=== PATIENT | female | born 1970 | race Caucasian/White ===

== ENCOUNTER → 2020-05-19 16:26 | Outpatient (CLI) | payer OTHER, SELFPAY ==
--- NOTE | ~2020-05-19 | MM_ITS ---
EXAMINATION: MM screening markus BI w john HISTORY: Screening mammogram TECHNIQUE: Craniocaudal and mediolateral oblique 3-D tomosynthesis images were obtained and synthetic 2-D images were generated. CAD analysis was submitted and interpreted. COMPARISON: 01/07/2018 bilateral digital screening mammogram 01/17/2017 bilateral diagnostic digital mammogram 01/01/2017 bilateral digital screening mammogram BREAST PARENCHYMAL COMPOSITION: There are scattered areas of fibroglandular density. FINDINGS: There is stable fibroglandular asymmetry. There is no evidence of suspicious mass, calcific ation, or architectural distortion to suggest malignancy in either breast. There has been no suspicio us interval change. IMPRESSION: 1. No mammographic evidence of malignancy. 2. Recommend routine screening mammography in one year. BI-RADS Category 2: Benign finding(s). Reviewed, dictated and finalized at location A.
== END ==
PROVIDERS: PCP Internal Medicine; Visit Provider Obstetrics & Gynecology
DX: Z12.31 Encounter for screening mammogram for malignant neoplasm of breast (principal)
CPT/HCPCS: 77063; 77067

== ENCOUNTER 2020-09-27 14:59 | Outpatient (CLI) | payer OTHER, SELFPAY | END 2020-09-27 15:00 | disposition home or self-care (01) | PROVIDERS: Family Provider Internal Medicine; PCP Internal Medicine; Visit Provider Urology | DX: Z01.818 Encounter for other preprocedural examination (principal); N39.3 Stress incontinence (female) (male) | CPT/HCPCS: 87086; 87088 ==

== ENCOUNTER 2020-09-28 01:35 | Outpatient (CLI) | payer OTHER, SELFPAY ==
[2020-09-28 18:12] LABS: SARS-CoV-2 RNA PCR Negative
== END 2020-09-28 01:36 | disposition home or self-care (01) ==
LOC: ANHCOVIDDT 01:35
PROVIDERS: Family Provider Internal Medicine; PCP Internal Medicine; Visit Provider Urology
DX: Z01.812 Encounter for preprocedural laboratory examination (principal); Z20.822 Contact with and (suspected) exposure to COVID-19
CPT/HCPCS: C9803; U0003; U0005

== ENCOUNTER 2020-10-01 02:01 | Day surgery (SDC) | payer OTHER, SELFPAY ==
[2020-09-23 16:04] VITALS: BMI 26.6
--- NOTE | 2020-09-26 15:38 | PM.IMHP ---
H&P: HPI History of Present Illness Date/Time: 09/26/20 15:38 Chief Complaint: NENO Narrative: Taryn Bahena is a 49 year old female with NENO Review of Systems Review of Systems: All systems reviewed & are unremarkable except as noted in HPI and below PMFSH Social History Social History Smoking status: Never smoker Spiritual care concerns: No Meds Home Medications and Allergies Home Medications Medication Instructions Recorded Confirmed Type albuterol sulfate [ProAir HFA] 2 puff INHALATION QID PRN 09/23/20 09/23/20 History ascorbic acid-vitamin E-biotin 1 tablet PO DAILY 09/23/20 09/23/20 History [Hair, Skin, Nails with Biotin] ciprofloxacin HCl [Cipro] 500 mg PO HS 09/23/20 09/23/20 History loratadine [Claritin] 10 mg PO DAILY 09/23/20 09/23/20 History multivitamin,tr-ootx-ywwvdbth 1 tablet PO DAILY 09/23/20 09/23/20 History [Complete Multivitamin] Allergies Allergy/AdvReac Type Severity Reaction Status Date / Time No Known Allergies Allergy Unknown Verified 09/23/20 15:44 Exam Const: General: cooperative, healthy appearing, comfortable and no acute distress HENMT: Head: normal to inspection Eyes: General: appearance normal, both eyes and all related structures Resp: Effort & Inspection: normal respiratory effort and able to speak in complete sentences GI: Inspection: normal to inspection : External Female Exam: normal external appearance Skin: General skin exam: normal color Assessment and Plan Assessment and plan (1) NENO (stress urinary incontinence, female): Code(s): N39.3 - Stress incontinence (female) (male) Status: Acute Assessment and Plan: urethral sling
--- NOTE | 2020-09-30 14:29 | WPDANESEPPF ---
Anes - Initial Pre Proc Eval Procedure: Operation Date: 10/01/20 09:00 Proposed Procedures p Urethral Sling - Bentley Gray MD Date/Time: 09/30/20 14:29 Surgeon: Bentley Gray MD Pre Op Diagnosis: Stress Incontinence Patient Data Age: 49 Gender: F Height: 1.7 m Weight: 77.15 kg Allergies Allergy/AdvReac Type Severity Reaction Status Date / Time No Known Allergies Allergy Unknown Verified 09/23/20 15:44 Home Medications Medication Instructions Recorded Confirmed Type albuterol sulfate [ProAir HFA] 2 puff INHALATION QID PRN 09/23/20 09/23/20 History ascorbic acid-vitamin E-biotin 1 tablet PO DAILY 09/23/20 09/23/20 History [Hair, Skin, Nails with Biotin] ciprofloxacin HCl [Cipro] 500 mg PO HS 09/23/20 09/23/20 History loratadine [Claritin] 10 mg PO DAILY 09/23/20 09/23/20 History multivitamin,th-exul-plnoszjs 1 tablet PO DAILY 09/23/20 09/23/20 History [Complete Multivitamin] Patient hx anesthesia problems: none Family hx anesthesia problems: none PMFSH Past Medical History Medical History (Updated 09/30/20 @ 14:30 by Sarthak Calvillo MD) Asthma NENO (stress urinary incontinence, female) Social History Social History Smoking status: Never smoker Living arrangements: with family Spiritual care concerns: No Anes - Eval Final PreProcedure Day of Procedure 09/30/20 14:29 Patient weight: overweight Heart: regular rate and rhythm Lungs: clear to auscultation and normal air movement Airway: Mallampati scale Neurological: alert and oriented Last oral intake: >/= 8 hours ASA classification: II Emergent: no Anesthetic plan: proceed Anesthesia type and monitoring: general LMA Informed Consent: The patient's anesthetic plan and its attendant risks and benefits were discussed with the patient/family/POA. Questions were solicited and answers provided to the satisfaction of the patient/family/POA.
--- NOTE | 2020-10-01 05:00 | WPDHPUPDATE1 ---
History and Physical Update Update Date/Time: 10/01/20 05:00 History and Physical has been reviewed, including an updated exam of the patient. There are NO changes in the patient's condition. Risks, benefits, and alternatives have been discussed and questions answered. Patient agrees to proceed with procedure.
[2020-10-01] MEDS: LACTATED RINGERS 1,000 ML 30 ML IV CONT (08:05)
[2020-10-01] MEDS: ceFAZolin 2 GM/D5W 50 ML 2 GM/50 ML BAG IVPB (08:51)
[2020-10-01] MEDS: BUPIVACAINE/EPINEPHRINE 0.5% 10 ML VIAL INFILTRATE (08:59)
--- NOTE | 2020-10-01 09:19 | PM.PROC ---
Procedure Note - Detailed Date of procedure: 10/01/20 Pre-op diagnosis: Stress Incontinence Stress urinary incontinence Post-op diagnosis: same Procedure performed: Transobturator Mid-urethral sling Cystoscopy Description of procedure: Anesthesia: Mac/local This is a patient with confirmed stress urinary incontinence. She desires correction. She understands the risks of bleeding, infection, damage to the urinary tract, lack of cure of stress incontinence, recurrence of stress incontinence, postoperative voiding dysfunction including incontinence and retention, need for ancillary procedures to loosen remove the sling, postoperative voiding dysfunction including retention and overactive bladder, hip and leg pain, dyspareunia, mesh related complications including exposure and extrusion. She agrees to proceed. She understands it will not help overactive bladder symptoms if present. She was correctly identified and informed consent obtained. She is brought to the operating room. She was given appropriate anesthesia. She was placed in the dorsal lithotomy position. All pressure points were padded. She was given appropriate perioperative antibiotics and a time-out performed. A Smith catheter is placed. I marked out the thigh incisions anesthetize the skin and made those incisions. I anesthetized the anterior vaginal wall over the mid urethra. I made a 1 cm incision. I dissected out laterally taking great care not to injure the urethra or the vaginal wall. Passed the helical trocars 1st on the left and then on the right from the thigh incision towards the vaginal incision. Sling was connected to the trocars and brought out through the thigh incision. I tensioned the sling appropriately. I cut and removed the plastic sheaths. I closed the incision with 2 0 Vicryl. I then performed cystoscopy. There was no surgical artifact or abnormalities inside the bladder. The urethra was normal without surgical artifact. I cut the excess sling material. I closed the incisions with glue. She was awakened and transferred to the PACU in stable condition. Implants: Mid urethral sling Surgeon: Bentley Gray MD Drains: No Packing: No Pathology: none sent Complications: No immediate complications Condition: stable Disposition: PACU
[2020-10-01 09:22] VITALS: BP 102/61; PULSE 60; RESP 16; O2SAT 98
[2020-10-01 09:50] VITALS: BP 91/57; PULSE 55; RESP 16
[2020-10-01 10:11] VITALS: BP 110/67; PULSE 50; RESP 16
== END 2020-10-01 10:25 | disposition home or self-care (01) ==
PROVIDERS: Family Provider Internal Medicine; PCP Internal Medicine; Visit Provider Urology
PROC: (CPT 57288; principal; 2020-10-01 09:00)
DX: N39.3 Stress incontinence (female) (male) (principal); Z79.51 Long term (current) use of inhaled steroids
CPT/HCPCS: 57288; 87086; 87088; A9270; C1771; C9803; J0690; J2250; J2704; J3010; J7030; J7120; U0003; U0005

== ENCOUNTER 2021-09-16 21:03 | Emergency (ER) | payer OTHER, SELFPAY ==
--- NOTE | ~2021-09-16 | CT_ITS ---
EXAMINATION: CT abdomen pelvis w con INDICATION: Lower abdominal and pelvic pain TECHNIQUE: Computed tomographic images of the abdomen and pelvis were obtained after the administrati on of 100 cc of Omnipaque 350 intravenous contrast. The dose-length product (DLP) was 613.11 mGy-cm. Automated exposure control and iterative reconstruction technique were employed. COMPARISON: None available FINDINGS: The lung bases are clear. The heart size is normal. The liver, spleen, pancreas, gallbladde r, and adrenal glands are normal. The right kidney is unremarkable. Cysts of the left kidney measure up to 8 mm. No pathologically enlarged abdominal or pelvic lymph nodes are identified. The appendix i s normal. There is no free intraperitoneal gas or evidence of bowel obstruction. A large volume of co lonic stool is present. There is moderate lumbar spondylosis at L5-S1. IMPRESSION: 1. Constipation. Reviewed, dictated and finalized at location F. [employer] IMPRESSION: 1. Constipation.
[2021-09-16 21:06] VITALS: BP 138/87; PULSE 77; RESP 16; TEMP 36.1; O2SAT 98
[2021-09-16 22:03] LABS: Basophils Absolute Auto 0.1 K/mm3 (0.0-0.1); Basophils Percent Auto 0.9 % (0.2-1.2); Eosinophils Absolute Auto 0.2 K/mm3 (0-0.3); Hematocrit 38.5 % (37.0-47.0); Hemoglobin 12.9 g/dL (12.0-15.0); Immature Granulocyte Absolute 0.02 K/mm3 (0.00-0.031); Immature Granulocyte Percent A 0.3 % (0-0.5); Lymphocytes Absolute Auto 2.44 K/mm3 (0.9-3.2); Lymphocytes Percent Auto 31.2 % (18.3-44.2); Mean Corpuscular HGB Conc 33.5 g/dl (32-36); Mean Corpuscular Hemoglobin 32.7 pg (26-34); Mean Corpuscular Volume 97.7 fl (80-100); Monocytes Absolute Auto 0.5 K/mm3 (0.1-0.6); Monocytes Percent Auto 6.9 % (2.6-8.5); Neutrophils Absolute Auto 4.6 K/mm3 (1.3-6.7); Neutrophils Percent Auto 58.7 % (45.5-73.1); Platelet Count Result 318 k/mm3 (150-375); Red Blood Count 3.94 M/mm3 (4.2-5.4); Red Cell Distribution Width 12.3 % (11.5-14.5); White Blood Count 7.8 K/mm3 (4.5-10.0)
[2021-09-16 22:07] LABS: Add Urine Microscopic? NO; Appearance Urine Clear (Clear); Bilirubin Urine Negative (Negative); Blood Urine Negative (Negative); Color Urine Colorless (Yellow); Glucose Urine UA Negative (Negative); Ketones Urine Negative (Negative); Leukocyte Esterase Ur Negative LEU/UL (Negative); Nitrate Urine Negative (Negative); Protein Urine Negative (Negative); Urobilinogen Urine Negative mg/dL (<2.0)
[2021-09-16 22:10] LABS: Specific Grav Ur 1.003 (1.001-1.035)
--- NOTE | 2021-09-16 22:14 | ED.ABDPAIN ---
HPI - Abdominal Pain General Chief Complaint: Abdominal Pain Stated Complaint: Lower ABD Pain, Back Pain, ABD Pressure Time Seen by Provider: 09/16/21 21:51 Source: patient and RN notes reviewed Limitations: no limitations History of Present Illness HPI narrative: 50-year-old female presents to the emergency department for evaluation of lower abdominal pain, bloating and vaginal discharge. Patient denies any pain but does describe bloating. Patient states that she did feel that the abdominal bloating was worsened after eating. Patient denies any change in her bowel movements. Patient states she did have a significant bowel movement yesterday which did not significantly affect her symptoms. Patient states that the vaginal discharge as white but denies any odor, denies any vaginal bleeding. Patient did have a urethral sling done 1 year ago. Patient does have follow-up with her primary care physician on October 07. Patient did attempt to get follow-up with her [employer] but call after the office closed. Related Data Home Medications Medication Instructions Recorded Confirmed Complete Multivitamin 1 tablet PO DAILY 09/23/20 10/01/20 Hair, Skin, Nails with Biotin 1 tablet PO DAILY 09/23/20 10/01/20 albuterol sulfate [ProAir HFA] 2 puff INHALATION QID PRN 09/23/20 10/01/20 ciprofloxacin HCl [Cipro] 500 mg PO HS 09/23/20 10/01/20 loratadine [Claritin] 10 mg PO DAILY 09/23/20 10/01/20 Allergies Allergy/AdvReac Type Severity Reaction Status Date / Time No Known Allergies Allergy Unknown Verified 09/16/21 21:11 Review of Systems Review of Systems: CONSTITUTIONAL: Denies fever, chills, or sweats. EYES: Denies visual changes, redness, or discharge. ENT: Denies rhinorrhea, congestion, sore throat, or otalgia. CARDIOVASCULAR: Denies chest pain, palpitations, or edema. RESPIRATORY: Denies cough or dyspnea. GASTROINTESTINAL: lower abdominal pressure, denies any nausea vomiting or diarrhea GENITOURINARY: Denies dysuria or hematuria. SKIN: Denies rash or itching. MUSCULOSKELETAL: Denies back pain, joint pain, or myalgia. NEUROLOGIC: Denies headache, numbness, or weakness. PSYCHIATRIC: Denies anxiety or depression. [facility] Past Medical History Medical History (Updated 01/14/22 @ 23:33 by Xavier Dodge MD) Asthma NENO (stress urinary incontinence, female) Social History Social History Smoking status: Never smoker Spiritual care concerns: No Exam Narrative: APPEARANCE: Well appearing, no pain, no distress, well-nourished. HEAD: normocephalic, atraumatic. EYES: PERRLA/EOMI, conjunctivae clear. NOSE: Normal no drainage THROAT: Pharynx clear, no exudate. NECK: Supple. No adenopathy, no masses. RESPIRATORY: Airway patent, respirations nonlabored. Clear to auscultation bilaterally, no rales, rhonchi, wheezing. CARDIOVASCULAR: Regular rate and rhythm without murmurs rubs or gallops. ABDOMINAL: Soft, minimal lower abdominal tenderness, nondistended, normal bowel sounds. Normal pelvic exam. No cervical friability. Patient did have a white physiologic discharge. No foul odor MUSCULOSKELETAL: Moves all extremities. Strength/ROM intact, No edema, No calf tenderness. NEURO: Alert. Cranial nerves II through XII intact. Good gait. Good coordination SKIN: Warm, dry. Normal Color PSYCHIATRIC: Normal affect/mood. Course Course Emergency Course: Patient was updated on the results of her labs and her imaging. CT did show evidence of constipation. No other acute abnormality identified. CT scan did show evidence of constipation. Patient was educated ways to help treat constipation. Patient was also updated on reasons to return to the emergency room. All question concerns were addressed. Patient was in no distress at time of discharge from the emergency department Clinical impression with constipation. Patient was discharged to home. Patient condition was stable at time of discharge Vital Signs Vital signs: Vital Signs Tempera
[2021-09-16 22:16] LABS: Alanine Aminotransferase 28 U/L (4-35); Albumin Level 4.5 g/dL (3.5-5.1); Alkaline Phosphatase 52 U/L (38-126); Anion Gap 9 mmol/L (8-16); Aspartate Amino Transferase 28 U/L (14-36); Bilirubin,Total 0.3 mg/dL (0.2-1.3); Blood Urea Nitrogen 16 mg/dL (7-17); Calcium 9.2 mg/dL (8.4-10.2); Carbon Dioxide 26 mmol/L (22-30); Chloride 104 mmol/L (98-107); Estimated CRCL calculation 112 ml/min; Estimated Glomerular Filt Rate > 60; Glucose 110 mg/dL (65-110); Lipase 99 U/L (23-300); Potassium 4.2 mmol/L (3.4-5.0); Sodium 139 mmol/L (137-145)
[2021-09-17 00:03] VITALS: BP 114/68; PULSE 65; RESP 18; O2SAT 97
== END 2021-09-17 00:07 | disposition home or self-care (01) ==
PROVIDERS: Emergency Medicine; Emergency Provider Emergency Medicine; PCP Internal Medicine
DX: K59.00 Constipation, unspecified (principal); J45.909 Unspecified asthma, uncomplicated
CPT/HCPCS: 36415; 74177; 80053; 81003; 81025; 83690; 85025; 87070; 87491; 87591; 87808; 99284; Q9967

== ENCOUNTER → 2022-04-12 14:50 | Outpatient (CLI) | payer OTHER, SELFPAY ==
--- NOTE | ~2022-04-12 | MM_ITS ---
EXAMINATION: MM screening markus BI w john HISTORY: Screening mammogram, family history of breast cancer in her mother. TECHNIQUE: Craniocaudal and mediolateral oblique 3-D tomosynthesis images were obtained and synthetic 2-D images were generated. CAD analysis was submitted and interpreted. COMPARISON: 05/19/2020, 01/07/2018, 01/17/2017 BREAST PARENCHYMAL COMPOSITION: There are scattered areas of fibroglandular density. FINDINGS: RIGHT BREAST: There is no suspicious mass, calcification, or architectural distortion to suggest renata gnancy. There has been no significant interval change. LEFT BREAST: There is a possible mass in the posterior third of the far outer breast best appreciated 8 cm from the nipple on the craniocaudal view. IMPRESSION: 1. Possible left breast mass. 2. Additional mammographic views and possible breast ultrasound are recommended. BI-RADS Category 0: Incomplete: Needs additional imaging evaluation. Reviewed, dictated and finalized at location A. IMPRESSION: 1. Possible left breast mass. 2. Additional mammographic views and possible breast ultrasound are recommended . BI-RADS Category 0: Incomplete: Needs additional imaging evaluation.
== END ==
PROVIDERS: PCP Internal Medicine; Visit Provider Obstetrics & Gynecology
DX: Z12.31 Encounter for screening mammogram for malignant neoplasm of breast (principal); R92.8 Other abnormal and inconclusive findings on diagnostic imaging of breast
CPT/HCPCS: 77063; 77067

== ENCOUNTER → 2022-04-25 08:20 | Outpatient (CLI) | payer OTHER, SELFPAY ==
--- NOTE | ~2022-04-25 | MMUS_ITS ---
EXAMINATION: MM diagnostic markus LT w john, US breast LT limited HISTORY: Follow-up left breast asymmetry TECHNIQUE: Additional 3-D tomosynthesis images of the left breast were performed and synthetic 2-D im ages were generated. CAD analysis was submitted and interpreted. High resolution Limited left breast ultrasound was performed. COMPARISON: Comparison to multiple prior studies sequentially, with oldest reviewed study dated 09/2016. BREAST PARENCHYMAL COMPOSITION: Breast composed of scattered areas of fibroglandular density FINDINGS: MAMMOGRAPHIC FINDINGS: There are no suspicious masses, calcifications or architectural distortion in the left breast to sugg est malignancy. ULTRASOUND: Limited left breast ultrasound: At 4:00, 4 cm from the nipple there is a 7 mm intramammary lymph node . No suspicious masses to suggest malignancy. IMPRESSION: 1. No evidence for malignancy in the left breast. 2. Routine yearly screening mammogram and regular clinical breast examination are recommended. BI-RADS Category 2: Benign finding(s). Reviewed, dictated and finalized at location A. IMPRESSION: 1. No evidence for malignancy in the left breast. 2. Routine yearly screening mammogram and regular clinical breast examination a re recommended. BI-RADS Category 2: Benign finding(s).
== END ==
PROVIDERS: PCP Internal Medicine; Visit Provider Obstetrics & Gynecology
DX: N63.20 Unspecified lump in the left breast, unspecified quadrant (principal)
CPT/HCPCS: 76642; 77061; 77065; G0279

== ENCOUNTER 2022-09-22 01:38 | Day surgery (SDC) | payer OTHER, SELFPAY ==
[2022-09-13 10:37] VITALS: BMI 28.1
--- NOTE | 2022-09-13 10:45 | PC.NURSE ---
Report to the Outpatient Waiting Room, entrance under the green pavilion located off [facility], at time 1000 on date 09/22/22. Planned Procedure Time: 1200. Time changes happen often and if your time is changed the preop area will call you the afternoon before. - You and your visitor will be asked to self-screen and do not enter if you have any COVID symptoms. - Only one visitor is requested with a max of two and NO children visitors are allowed at this time. - The patient visitor may be requested to leave or wait in car when not with patient due to distancing restrictions. - A mask is REQUIRED within the hospital. Patients may have clear liquids (water, carbonated beverages, clear teas, apple juice) until 3 hours prior to surgery with a maximum of 20 ounces. - No food from midnight until time of surgery Take the following medications with a SIP of water the morning of surgery: NONE Medications to discontinue per physician: VITAMINS/SUPPLEMENTS Date to take last dose: 09/18/22 Please no make-up, nail tunisian, hairspray, perfume, deodorant, or body powder the day of surgery. No jewelry (including any body piercings) or valuables the day of surgery, leave them at home. Please take a shower or bath the night before, or the morning of, surgery with an antibacterial soap. Wear comfortable, loose fitting clothing. - Jewelry must be removed prior to entering the operating room. Rings and piercings that are not removed may be cut off. - The hospital will not accept responsibility for valuables. - Please leave all valuables, including medications, at home the day of surgery. If you are going home after surgery, a licensed driver license technician must drive you home. - NO public transportation without another adult if you receive anesthesia. - We recommend that an adult stay with you for 24 hours following discharge. - We also recommend that you do not drive, make important decision, drink alcoholic beverages, or take any drugs that were not prescribed by your health care provider for at least 24 hours after your discharge time. Follow any additional instructions given to you from your surgeon. If you or anyone in your household have experienced Covid symptoms in the past week, please notify your surgeon or the nurse liaison at the phone number below for possible testing. Telephone instructions given to PT - VERA REDMAN and asked if any additional questions and then verbalized understanding. Patient advised to call surgeon office or pre surgery nurse liaison [phone] if any additional questions.
[2022-09-22 10:15] VITALS: BP 112/74; PULSE 63; RESP 16; TEMP 37.1; O2SAT 100
--- NOTE | 2022-09-22 10:29 | P.PNAN_ITS ---
Anes - Initial Pre Proc Eval Procedure: Operation Date: 09/22/22 12:00 Proposed Procedures p Excision Subcutaneous Mass Right Lower Chest - Edwin Curtis MD Date/Time: 09/22/22 10:29 Surgeon: Edwin Curtis MD Pre Op Diagnosis: subcutaneous mass right chest Patient Data Age: 51 Gender: F Height: 1.7 m Weight: 81.9 kg Last Vital Signs Temp 37.1 C 09/22/22 10:15 Pulse 63 09/22/22 10:15 Resp 16 09/22/22 10:15 BP 112/74 09/22/22 10:15 Pulse Ox 100 09/22/22 10:15 O2 Del Method Room Air 09/22/22 10:15 Allergies Allergy/AdvReac Type Severity Reaction Status Date / Time No Known Allergies Allergy Unknown Verified 09/22/22 10:00 Home Medications Medication Instructions Recorded Confirmed Type multivitamin,li-tves-qqyuzmsk 1 tablet PO DAILY 09/23/20 09/13/22 History (Complete Multivitamin tablet) loratadine 10 mg tablet 10 mg PO DAILY 08/14/22 09/13/22 History magnesium 250 mg tablet 250 mg PO DAILY 09/13/22 09/13/22 History Patient hx anesthesia problems: none Family hx anesthesia problems: none Results Review: All pre-operative results and documents have been reviewed as part of the pre- operative evaluation. 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 Gender identity (if verbalized by the patient): Female Sexual Orientation (if Verbalized by the Patient): Straight or Heterosexual Spiritual care concerns: No Anes - Eval Final PreProcedure Day of Procedure 09/22/22 10:29 Patient weight: overweight Heart: regular rate and rhythm Lungs: clear to auscultation Airway: Mallampati scale class II Neurological: alert and oriented Last oral intake: >/= 8 hours ASA classification: II Emergent: no Anesthetic plan: proceed Anesthesia type and monitoring: general GIVS and standard monitoring Results Review: All pre-operative results and documents have been reviewed as part of the pre- operative evaluation. Informed Consent: The patient's anesthetic plan and its attendant risks and benefits were discussed with the patient/family/POA. Questions were solicited and answers provided to the satisfaction of the patient/family/POA.
--- NOTE | 2022-09-22 11:38 | WPDHPUPDATE1 ---
History and Physical Update Update Date/Time: 09/22/22 11:38 History and Physical has been reviewed, including an updated exam of the patient. There are NO changes in the patient's condition. Risks, benefits, and alternatives have been discussed and questions answered. Patient agrees to proceed with procedure.
--- NOTE | 2022-09-22 12:00 | PM.SD2 ---
Same Day Admit/Disch: HPI History of Present Illness Chief complaint: subcutaneous mass right chest Narrative: Taryn Bahena is a 51 year old female who has a subcutaneous mass at the lower aspect of the right costal margin in the anterior axillary line. It is smooth mobile and suggestive of a lipoma. It is bothersome sometimes with clothing or if she bumps up against something. She is taken to surgery now for excision. 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 Gender identity (if verbalized by the patient): Female Sexual Orientation (if Verbalized by the Patient): Straight or Heterosexual Spiritual care concerns: No Same Day Admit/Disch: Med Pre-admit Medications Home Medications Medication Instructions Recorded Confirmed Type multivitamin,qg-bvly-tftuwxyi 1 tablet PO DAILY 09/23/20 09/13/22 History (Complete Multivitamin tablet) loratadine 10 mg tablet 10 mg PO DAILY 08/14/22 09/13/22 History magnesium 250 mg tablet 250 mg PO DAILY 09/13/22 09/13/22 History tramadol 50 mg tablet 50 mg PO Q6H PRN pain #6 tabs 09/22/22 Rx Exam Const: General: comfortable, no acute distress, alert and awake HENMT: Head: normocephalic and atraumatic Mouth: Yes Normal oral and palatal mucosa present Eyes: Conjunctivae: conjunctivae normal Pupils: Equal, round and reactive pupils present EOM: EOMs intact bilaterally Neck: Neck: normal visual inspection, no lymphadenopathy and nontender Resp: Effort & Inspection: normal respiratory effort Auscultation: clear to auscultation bilaterally Cardio: Rate: regular rate Rhythm: regular rhythm Heart sounds: no gallops, no murmurs and no rubs GI: Inspection: non-distended GI Palp: Yes Soft to palpation, No Tenderness to palpation present (GI), No Hepatomegaly present and No Splenomegaly present Skin: Lesions: lesion noted (4 x 2 cm mobile smooth subcutaneous mass right costal margin lateral) Rashes: no rashes Neuro: General: no focal motor deficits and CN's II-XI intact bilaterally Cranial nerves: Yes Equal, round and reactive pupils present, Yes Bilaterally intact EOM present, Yes facial symmetry and Yes Midline tongue present Speech: normal speech Motor exam (neuro): 5/5 motor strength present throughout and Motor abnormalities not present Extrem: General: no clubbing, cyanosis or edema and edema Psych: Affect: normal affect Thought process: Normal thought process present Insight: Good insight present (Psych) DS: Summary Time Spent with Patient Time attestation: Total time spent providing and/or coordinating discharge services: DS: Admitting Diagnosis Discharge Date 09/22/2022 Admitting Diagnosis Subcutaneous mass right lateral costal margin-symptomatic, likely a lipoma. Plan to excise under anesthesia as an outpatient. Discharge Plan Discharge Patient Disposition: Home, Self-Care Discharge Instructions: No lifting over 15 lb with right arm for 1 week. May bathe or shower tomorrow. Okay to wash over incision with soap and water. May drive a car and 24 hours unless taking narcotic analgesics. Avoid strenuous exercise and activities for at least 1 week
[2022-09-22] MEDS: ceFAZolin 2 GM/D5W 50 ML 2 GM/50 ML BAG IVPB (12:06)
[2022-09-22] MEDS: BUPIVACAINE/EPINEPHRINE 0.5% 10 ML VIAL INFILTRATE (12:37)
[2022-09-22 12:41] VITALS: BP 102/65; PULSE 57; RESP 18
[2022-09-22] MEDS: LACTATED RINGERS 1,000 ML 30 ML IV CONT (12:41)
--- NOTE | 2022-09-22 12:43 | P.OP_ITS ---
Procedure Note - Detailed Date of Procedure 09/22/22 Pre-op Diagnosis subcutaneous mass right upper quadrant Post-op Diagnosis Same Procedure Performed Excision subcutaneous mass right upper quadrant abdomen Surgeon Edwin Curtis MD Clinical Nutrition Manager Camille Iverson [facility] Anesthesia MAC and Local (0.5% Marcaine with epinephrine) Indications Patient noted a subcutaneous nodule just below her costal margin in the right upper quadrant somewhat laterally. This is not been severely painful but is painful with some clothing or bumping up against something in this area. She was seen in the office and is taken now to surgery for excision of this mass which is clinically consistent with a lipoma. Findings Showed a 3 x 3 cm soft tissue mass consistent with a lipoma. Description of Procedure Patient was taken to the surgery and IV sedation was administered. The area of the subcutaneous mass had been marked on the skin preoperatively. Prep and drape was carried out. Local anesthetic was infiltrated over the area of the anticipated incision. Incision was made and dissection was carried down through the skin. Right below the skin we found the lipoma. It did have three or 4 lobules associated with it. Using blunt and sharp dissection, the lipoma was carefully dissected out from under the skin and from the remaining subcutaneous tissue. It was sent to pathology in formalin. We then made the wound hemostatic with cautery. Manohar's fascia was closed with interrupted 3-0 Vicryl suture. 4-0 Vicryl subcuticular interrupted sutures were used to loosely approximate the skin. Finally a running 4-0 Monocryl skin stitch was used to close the skin. The wound was dressed with Exofin surgical adhesive. Patient was awakened and taken to outpatient recovery in good condition. Sponge and needle counts were correct x2. Estimated Blood Loss -2 Drains No Packing No Pathology Yes (Subcutaneous mass right upper quadrant) Complications No immediate complications Condition Stable Disposition Same day [facility] Billing Surgery - Charge Forward: Surgery Billing (Excision 3 cm subcutaneous mass right upper quadrant abdomen)
[2022-09-22 13:14] VITALS: BP 95/56; PULSE 60; RESP 16
[2022-09-22 13:41] VITALS: BP 102/64; PULSE 53; RESP 16
== END 2022-09-22 13:52 | disposition home or self-care (01) ==
PROVIDERS: PCP Internal Medicine; Visit Provider Surgery
PROC: (CPT 22903; principal; 2022-09-22 12:00)
DX: D17.1 Benign lipomatous neoplasm of skin and subcutaneous tissue of trunk (principal)
CPT/HCPCS: 22903; 88304; J0690; J2250; J2704; J3010; J7120

== ENCOUNTER 2023-07-19 17:18 | Emergency (ER) | payer OTHER, SELFPAY ==
[2023-07-19] VITALS (8 sets, daily range): BP systolic 113–138; BP diastolic 66–93; PULSE 81; RESP 16; TEMP 36.5; O2SAT 98–100
--- NOTE | ~2023-07-19 | CT_ITS ---
EXAMINATION: CT abdomen pelvis wo con DATE: 07/19/2023 20:34 INDICATION: Right flank pain TECHNIQUE: Computed tomography (CT) of the abdomen and pelvis was performed without intravenous contr ast. Automated exposure control and iterative reconstruction technique were employed. The dose-length product was 659.46 mGy-cm. COMPARISON: 09/16/2021 FINDINGS: Minimal dependent atelectasis in bilateral lower lobes. Tiny calcified left lower lobe nodule consist ent with old granulomatous disease. Heart size is normal. No pericardial or pleural effusion. Focal h epatic steatosis at the ligamentum teres. Gallbladder, spleen, pancreas and bilateral adrenal glands are normal. Kidneys and ureters are normal with no urolithiasis, hydroureteronephrosis or perinephric /ureteral stranding. Moderate to large amount of stool in the proximal to mid colon. No bowel obstru ction. Normal appendix. Bladder is normal. Uterus and bilateral adnexa are unremarkable. No free intr aperitoneal gas or fluid. No pathologically enlarged abdominal or pelvic lymphadenopathy. Severe spon dylosis at L5-S1. IMPRESSION: 1. No urolithiasis or acute intra-abdominal/pelvic process. Reviewed, dictated and finalized at location A. 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
[2023-07-19 17:46] LABS: Basophils Absolute Auto 0.1 K/mm3 (0.0-0.1); Basophils Percent Auto 0.6 % (0.2-1.2); Eosinophils Absolute Auto 0.1 K/mm3 (0-0.3); Eosinophils Percent Auto 1.2 % (0-4.4); Hematocrit 39.2 % (37.0-47.0); Hemoglobin 12.8 g/dL (12.0-15.0); Immature Granulocyte Absolute 0.03 K/mm3 (0.00-0.031); Immature Granulocyte Percent A 0.3 % (0-0.5); Lymphocytes Absolute Auto 2.02 K/mm3 (0.9-3.2); Lymphocytes Percent Auto 21.7 % (18.3-44.2); Mean Corpuscular HGB Conc 32.7 g/dl (32-36); Mean Corpuscular Hemoglobin 31.1 pg (26-34); Mean Corpuscular Volume 95.4 fl (80-100); Mean Platelet Volume 8.8 fl (7.4-10.4); Monocytes Absolute Auto 0.6 K/mm3 (0.1-0.6); Monocytes Percent Auto 6.1 % (2.6-8.5); Neutrophils Absolute Auto 6.5 K/mm3 (1.3-6.7); Neutrophils Percent Auto 70.1 % (45.5-73.1); Platelet Count Result 349 k/mm3 (150-375); Red Blood Count 4.11 M/mm3 (4.2-5.4); Red Cell Distribution Width 12.7 % (11.5-14.5); White Blood Count 9.3 K/mm3 (4.5-10.0)
[2023-07-19 17:57] LABS: Alanine Aminotransferase 23 U/L (6-35); Albumin Level 4.8 g/dL (3.5-5.1); Alkaline Phosphatase 64 U/L (38-126); Anion Gap 12 mmol/L (8-16); Aspartate Amino Transferase 26 U/L (14-36); Bilirubin,Total 0.7 mg/dL (0.2-1.3); Blood Urea Nitrogen 10 mg/dL (7-17); Calcium 9.8 mg/dL (8.4-10.2); Carbon Dioxide 28 mmol/L (22-30); Chloride 98 mmol/L (98-107); Estimated CRCL calculation 80 ml/min; Estimated Glomerular Filt Rate > 60; Glucose 90 mg/dL (65-110); Potassium 4.2 mmol/L (3.4-5.0); Sodium 138 mmol/L (137-145)
[2023-07-19 18:33] LABS: Appearance Urine Turbid (Clear); Bacteria Urine None Seen /hpf; Bilirubin Urine Negative (Negative); Blood Urine 3+ (Negative); Glucose Urine UA Negative (Negative); Ketones Urine Negative (Negative); Leukocyte Esterase Ur 3+ LEU/UL (Negative); Mucus Urine Present /lpf; Need Manual Microscopic Reviewed; Nitrate Urine Negative (Negative); Protein Urine 1+ mg/dL (Negative); Specific Grav Ur 1.004 (1.001-1.035); Squamous Epithelial Cell Urine None seen /hpf (Few); Urobilinogen Urine 0.2 mg/dL (<2.0); WBC Urine >100 /hpf
[2023-07-19 18:35] LABS: Color Urine Light Red (Yellow)
[2023-07-19 18:52] LABS: Add Urine Microscopic? YES
--- NOTE | 2023-07-19 20:38 | ED.FEMALEGU ---
HPI - Female Genitourinary General Chief complaint: Urogenital-Female Stated complaint: hematuria Time Seen by Provider: 07/19/23 20:03 History of Present Illness HPI Narrative: This is a 52-year-old female, with history of frequent UTIs, who presents to the emergency department complaining dysuria, hematuria and right flank pain. The patient states her symptoms began approximately 3 days ago. She was prescribed Bactrim, although overnight developed bladder spasms and has since developed right upper quadrant dull pain, rated 5/10 without radiation. She has no other complaints at this time. Related Data Home Medications Medication Instructions Recorded Confirmed multivitamin,ul-vtyh-nwylyzky 1 tablet PO DAILY 09/23/20 10/09/22 (Complete Multivitamin tablet) loratadine 10 mg tablet 10 mg PO DAILY 08/14/22 10/09/22 magnesium 250 mg tablet 250 mg PO DAILY 09/13/22 10/09/22 alpha lipoic acid 300 mg capsule 300 mg PO DAILY 03/29/23 Allergies Allergy/AdvReac Type Severity Reaction Status Date / Time No Known Allergies Allergy Unknown Verified 03/29/23 13:25 Review of Systems Review of Systems: CONSTITUTIONAL: Denies fever, chills, or sweats. CARDIOVASCULAR: Denies chest pain, palpitations, or edema. RESPIRATORY: Denies cough or dyspnea. GASTROINTESTINAL: Right flank pain denies nausea, vomiting, or diarrhea. GENITOURINARY: Denies dysuria or hematuria. SKIN: Denies rash or itching. MUSCULOSKELETAL: Right flank pain denies joint pain, or myalgia. NEUROLOGIC: Denies headache, numbness, dizziness, or weakness. PSYCHIATRIC: Denies anxiety or depression. FOR[facility]LY [facility] Past Medical History Medical History Asthma NENO (stress urinary incontinence, female) Surgical History Surgical History History of bladder surgery sling History of excision of mass 09/22/2022 - excision subcutaneous lipoma of the right upper quadrant of abdomen History of hysteroscopy S/P dilation and curettage Amenorrhea; benign pathology Family History Family History Father Hypertension Other Breast cancer Social History Social History Smoking status: Never smoker Alcohol intake: current Drinks per week: 1 Substance use: never Substance use type: does not use Lack of Transportation: No Lack of Food: Never True Current Housing: I Have Housing Concerned About Future Housing: No Difficulty Paying Gas/Electric Bills: No Difficulty Paying for Meds: No Currently Unemployed: No Education: Master's Degree or Higher Difficulty w/ Childcare or Family Care: No Living arrangements: with family 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 HEAD: Normocephalic, atraumatic. EYES: PERRLA and EOMI. ENT: Nares clear, no rhinorrhea or epistaxis. Mucous membranes moist. Oropharynx without tonsillar hypertrophy exudate or other lesions. CHEST: Clear to auscultation. No respiratory distress. No wheezes rales or rhonchi HEART: Regular rate and rhythm. No murmur heard. Normal peripheral pulses. ABDOMEN: Soft, mild right upper quadrant tenderness to palpation, without rebound or guarding, nondistended, normal active bowel sounds. Mild right CVA tenderness to palpation. No left CVA tenderness EXTREMITIES: Normal range of motion. No edema. SKIN: Warm, dry, no rash. NEURO: No focal deficits. Alert and oriented x3. PSYCH: Normal mood and affect. Course Course Emergency Course: 21:05 - CT abdomen pelvis not concerned
[2023-07-19] MEDS: ACETAMINOPHEN 500 MG TABLET 1000 MG PO (20:48)
[2023-07-19] MEDS: CEFDINIR 300 MG CAPSULE PO (21:13)
== END 2023-07-19 21:16 | disposition home or self-care (01) ==
PROVIDERS: Student in an Organized Health Care Education/Training Program; Emergency Provider Preventive Medicine Aerospace Medicine; PCP Internal Medicine
DX: N12 Tubulo-interstitial nephritis, not specified as acute or chronic (principal); J45.909 Unspecified asthma, uncomplicated
CPT/HCPCS: 36415; 74176; 80053; 81001; 81025; 85025; 87077; 87086; 87186; 99284; A9270

== ENCOUNTER → 2023-09-06 15:30 | Outpatient (CLI) | payer OTHER, SELFPAY ==
--- NOTE | ~2023-09-06 | XR_ITS ---
EXAMINATION: XR abdomen/kub 1V DATE: 09/06/2023 16:09 INDICATION: Constipation. Generalized abdominal pain. Bloating. TECHNIQUE: A supine view of the abdomen on 2 radiographs was obtained. COMPARISON: CT abdomen and pelvis 07/19/2023 FINDINGS: There are no dilated loops of bowel. There is a moderate volume of stool in the colon. Ther e are phleboliths in left pelvis. IMPRESSION: 1. Nonobstructed bowel gas pattern. Reviewed, dictated and finalized at location E. 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
== END ==
PROVIDERS: PCP Internal Medicine
DX: K59.00 Constipation, unspecified (principal)
CPT/HCPCS: 74018

== ENCOUNTER 2023-11-28 14:15 | Outpatient (CLI) | payer OTHER, SELFPAY ==
--- NOTE | ~2023-11-28 | MM_ITS ---
EXAMINATION: MM screening markus BI w john HISTORY: Screening mammogram TECHNIQUE: Craniocaudal and mediolateral oblique 3-D tomosynthesis images were obtained and synthetic 2-D images were generated. Bilateral rotated lateral CC views. CAD analysis was submitted and interp reted. COMPARISON: 04/25/2022 diagnostic left mammogram and limited left breast ultrasound. 04/12/2022, 05/19/2020 bilateral screening mammogram examinations BREAST PARENCHYMAL COMPOSITION: There are scattered areas of fibroglandular density. FINDINGS: There is no evidence of suspicious mass, calcification, or architectural distortion to sugg est malignancy in either breast. There has been no suspicious interval change. IMPRESSION: 1. No mammographic evidence of malignancy. 2. Recommend routine screening mammography in one year. BI-RADS Category 1: Negative Reviewed, dictated and finalized at location A.
== END 2023-11-28 14:16 ==
LOC: MICIMG 14:17
PROVIDERS: PCP Obstetrics & Gynecology; Visit Provider Obstetrics & Gynecology
DX: Z12.31 Encounter for screening mammogram for malignant neoplasm of breast (principal)
CPT/HCPCS: 77063; 77067

== ENCOUNTER 2024-05-14 15:35 | Outpatient (CLI) | payer OTHER, SELFPAY ==
--- NOTE | ~2024-05-14 | US_ITS ---
EXAMINATION: US pelvic complete w TV DATE: 05/14/2024 16:43 INDICATION: Postmenopausal bleeding. TECHNIQUE: Multiple transabdominal and transvaginal sonographic images of the pelvis were obtained. COMPARISON: CT abdomen pelvis 07/19/2023 FINDINGS: TRANSABDOMINAL ULTRASOUND: The uterus measures 8.4 x 4.9 x 5.0 cm. There is no free fluid in the pelvis. TRANSVAGINAL ULTRASOUND: The endometrial complex measures 2 mm in thickness. The right ovary measures 1.8 x 1.2 x 1.4 cm. The left ovary measures 2.8 x 1.7 x 1.2 cm. IMPRESSION: 1. Normal pelvis. Reviewed, dictated and finalized at location A. IMPRESSION: 1. Normal pelvis.
== END 2024-05-14 15:36 | disposition home or self-care (01) ==
LOC: ANHIMG 15:40
PROVIDERS: PCP Internal Medicine; Visit Provider Obstetrics & Gynecology
DX: N95.0 Postmenopausal bleeding (principal)
CPT/HCPCS: 76830; 76856

== ENCOUNTER 2024-09-05 16:04 | Outpatient (CLI) | payer OTHER, SELFPAY ==
--- NOTE | ~2024-09-05 | XR_ITS ---
3 VIEWS LUMBAR SPINE Ordering provider: Ab Roblero, History: . LBP . Comparison: None. FINDINGS: VERTEBRAL BODIES: No visible fracture or subluxation. DISK SPACES: Narrowing of the disc L5-S1. SOFT TISSUES: Normal. IMPRESSION: No acute osseous abnormality lumbar spine. Reviewed, dictated and finalized at location A. 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
--- NOTE | ~2024-09-05 | XR_ITS ---
SINGLE AP VIEW PELVIS Ordering provider: Ab Roblero, History: . LBP . Comparison: None. FINDINGS: BONES: No acute fracture or dislocation. HIP JOINT SPACES: Mild bilateral hip osteoarthritic changes. Right sacroiliitis. SACROILIAC JOINT SPACES/LUMBAR SPINE: The sacroiliac joint spaces are normal. Mild degenerative anne es of the visualized lower lumbar spine. PUBIC SYMPHYSIS: Normal. SOFT TISSUES: Normal. IMPRESSION: No acute osseous abnormality pelvis. Reviewed, dictated and finalized at location A. 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
== END 2024-09-05 16:05 | disposition home or self-care (01) ==
LOC: MICIMG 16:05
PROVIDERS: PCP Internal Medicine; Visit Provider Internal Medicine
DX: M54.50 Low back pain, unspecified (principal)
CPT/HCPCS: 72100; 72170

== ENCOUNTER 2024-11-28 08:40 | Outpatient (CLI) | payer OTHER, SELFPAY ==
--- NOTE | ~2024-11-28 | MM_ITS ---
EXAMINATION: MM screening [facility] HISTORY: Screening TECHNIQUE: Craniocaudal and mediolateral oblique 3-D tomosynthesis images were obtained and synthetic 2-D images were generated. CAD analysis was submitted and interpreted. COMPARISON: 11/28/2023 and dating back to 05/19/2020 BREAST PARENCHYMAL COMPOSITION: There are scattered areas of fibroglandular density. FINDINGS: Stable parenchymal pattern without suspicious microcalcifications, architectural distortion, discrete masses or significant asymmetry. IMPRESSION: 1. No mammographic evidence of malignancy. 2. Recommend routine screening mammography in one year. BI-RADS Category 1: Negative Reviewed, dictated and finalized at location A.
--- OUTSIDE RECORDS SUMMARY | 2024-11-28 08:57 | XMS_ITS | Clinical Summary ---
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 Gender Identity Not on file Sexual Orientation Not on file Plan of Treatment Health Maintenance Due Date Last Done Comments Cervical Cancer Screening Pa p Smear (Age 30 to 64) Every 3 Years 1972 Colorectal Cancer Screening Colonoscopy (10 Years) 1972 Annual Physical 11/22/1975 Hepatitis C 1990 DTaP, Tdap and Td Vaccines ( 1 - Tdap) 11/22/1991 Hepatitis B Vaccines (1 of 3 - 19+ 3-dose series) 11/22/1991 Cervical Cancer Screening Pa p with HPV Testing (Age 30 to 64) Every 5 Years 2002 Cervical Cancer Screening with HPV 2002 Mammogram Screening 2012 Zoster Vaccines (1 of 2) 2022 COVID-19 Vaccine (2023-2 5 season) 2024 Influenza Adult (#1) 2024 Meningococcal B Vaccine Aged Out No l onger eligible based on patient's age to complete this topic Meningococcal Vaccine Aged Out No johanne joyce eligible based on patient's age to complete this topic Pneumococcal Vaccine: Pediat rics (0 to 5 Years) and At-Risk Patients (6 to 64 Years) Aged Out No longer eligible b ased on patient's age to complete this topic RSV Immunizations Under 20 Months Aged Out No longer eligible based on patient's age to complete this topic Insurance [facility] [employer] Care Teams Band Ripsaw Operator Relationship Specialty Start Date End Date Ab Roblero MD [address] [address] PCP - General INTERNAL MEDICINE 08/12/20
--- OUTSIDE RECORDS SUMMARY | 2024-11-28 08:57 | XMS_ITS | Data Portability ---
Author Organization [place] - [facility] [employer], Main Office Address [address] [place] [address] Assessment Encounter Date Assessment Date Assessment LastModified by Organization Details LastModified Time 04/02/2023 04/02/2023 Blood work healthy lifestyle choices six-month follow-up [email or web address] Not available 04/02/2023 22:09:16 Plan of Treatment Reminders Order Date Submit Date Provider Last Modified By Organization Details Last Modified Time Details Appointments None recorded . Lab lipid panel, serum 023 04/02/20 23 cyahl Not available 4 11:17:22 TSH, serum or plasma 023 04/02/20 23 cyahl Not available 4 11:17:21 CBC w/ auto diff 023 04/02/20 23 cyahl Not available 4 11:17:22 T3, free, serum or plasma 023 04/02/20 23 cyahl Not available 4 11:17:22 T4, free, serum 023 04/02/20 23 cyahl Not available 4 11:17:22 CMP, serum or plasma 023 04/02/20 23 CHITO Not available 3 09:43:12 Referral None recorded . Procedures None recorded . Surgeries None recorded . Imaging None recorded . Medication Orders None recorded . Patient TargetsNo targets recorded. Patient InstructionsNo instructions recorded. Reason for Referral None Reported. Results Created Date Observation Date Name Description Value Unit Range Abnormal Flag Note LastModifiedBy Organization Detail LastModifiedTime 03/02/20 22 03/02/2022 COMPR EHENS RK METAB OLIC PANEL sodium 139 mmol/ L 137-14 5 Not Available [facility] (Lab) [address] [place], [address], 03/02/2022 20:48:05 03/02/20 22 03/02/2022 COMPR EHENS RK METAB OLIC PANEL potassium 4.8 mmol/ L 3.5-5. [address] [facility] (Lab) [address] [place], [address], 03/02/2022 20:48:05 03/02/20 22 03/02/2022 COMPR EHENS RK METAB OLIC PANEL chloride 102 mmol/ L 98-[address] [facility] (Lab) [address] [facility] [place], [address], 03/02/2022 20:48:05 03/02/20 22 03/02/2022 COMPR EHENS RK METAB OLIC PANEL carbon dioxide 31 mmol/ L 22-30 high Not Available [facility] (Lab) [address] [place], [address], 03/02/2022 20:48:05 03/02/20 22 03/02/2022 COMPR EHENS RK METAB OLIC PANEL anion gap 10.8 mmol/ L 14-[address] [facility] (Lab) [address] [place], [address], 03/02/2022 20:48:05 03/02/20 22 03/02/2022 COMPR EHENS RK METAB OLIC PANEL glucose 89 mg/dL 70-[address] [facility] (Lab) [address] [place], [address], 03/02/2022 20:48:05 03/02/20 22 03/02/2022 COMPR EHENS RK METAB OLIC PANEL BUN 14 mg/dL 8-[address] [facility] (Lab) [address] [place], [address], 03/02/2022 20:48:05 03/02/20 22 03/02/2022 COMPR EHENS RK METAB OLIC PANEL creatinine 0.70 mg/dL 0.66-[address] [facility] (Lab) [address] [place], [address], 03/02/2022 20:48:05 03/02/20 22 03/02/2022 COMPR EHENS RK METAB OLIC PANEL GFR >60 Refer ence Range : [place] [facility] GFR Healt hy Adult : >60 mL/mi n/1.7 3 m2 Chron ic Kidne y Disea se: 15-60 mL/mi n/1.7 3 m2 Kidne y Failu re: <15/m L/min /1.73 m2 www.n iddk. nih.g ov The MDRD study equat ion has not been valid ated in child eva <18 years of age; pregn ant women ; the elder ly >85 years of age; or in some racia l or ethni c subgr oups, such as Hispa nics. Outsi de the valid ated raina eters , estim ated GFR is less accur ate, requi ring clini feliberto judgm ent on a case- by-ca se basis . Clini feliberto inter preta tion for other races and ages must be made by the clini zunilda. The MDRD study equat ion has not been valid ated for the evalu ation of serum creat inine relat ed to nutri brett l statu s or medic ation usage . For perso ns <18 years of age, a pedia tric GFR calcu lator is avail able on the F websi te: https ://ww w.kid soledad.o rg/pr ofess ional s/kdo qi/gf r_cal culat or Not Available [facility] (Lab) [address] [place], [address], 03/02/2022 20:48:05 03/02/20 22 03/02/2022 COMPR EHENS RK METAB OLIC PANEL alkaline phosphatase 63 U/L 38-126 Not Available [facility] (Lab) [address] [place], [address], 03/02/2022 20:48:05 03/02/20 22 03/02/2022 COMPR EHENS RK METAB OLIC PANEL alanine aminotransfe rase 18 U/L 0-35 Not Available [facility] (Lab) [address] [place], [address], 03/02/2022 20:48:05 03/02/20 22 03/02/2022 COMPR EHENS RK METAB OLIC PANEL aspartate aminotransfe rase 23 U/L 15-37 Not Available [facility] (Lab) [address] [place], [address], 03/02/2022 20:48:05 03/02/20 22 03/02/2022 COMPR EHENS RK METAB OLIC PANEL bilirubin, total 0.30 mg/dL 0.20-[address] [facility] (Lab) [address] [place], [address], 03/02/2022 20:48:05 03/02/20 22 03/02/2022 COMPR EHENS RK METAB OLIC PANEL calcium 9.7 mg/dL 8.4-[address] [facility] (Lab) [address] [place], [address], 03/02/2022 20:48:05 03/02/20 22 03/02/2022 COMPR EHENS RK METAB OLIC PANEL total protein 7.9 g/dL 6.3-8. [address] [facility] (Lab) [address] [place], [address], 03/02/2022 20:48:05 03/02/20 22 03/02/2022 COMPR EHENS RK METAB OLIC PANEL albumin 4.7 g/dL 3.4-5. [address] [facility] (Lab) [address] [place], [address], 03/02/2022 20:48:05 03/02/20 22 03/02/2022 COMPR EHENS RK METAB OLIC PANEL globulin 3.2 g/dL 2.6-4. [address] [facility] (Lab) [address] [place], [address], 03/02/2022 20:48:05 03/02/20 22 03/02/2022 COMPR EHENS RK METAB OLIC PANEL A/G ratio 1.5 ratio 1.0-2. [address] [facility] (Lab) [address] [place], [address], 03/02/2022 20:48:05 03/02/20 22 03/02/2022 LIPID PANEL cholesterol 228 mg/dL 140-19 9 high NIH MAYELIN NSUS RECOM MENDA TION FOR NORAH STERO L: ADULT CHILD LOW RISK: <200 <170 BORDE RLINE : <200- 239 ----- HIGH RISK: >240 >200 Not Available [facility] (Lab) [address] [place], [address], 03/02/2022 18:45:39 03/02/20 22 03/02/2022 LIPID PANEL triglyceride s 105 mg/dL 0-150 NIH MAYELIN NSUS REPOR T RECOM MENDA TION FOR TRIGL YCERI JAZZ: ADULT CHILD LOW RISK: <150 ----- BODER LINE: 150-1 99 ----- HIGH RISK: >200 ----- Not [address] [facility] (Lab) [address] [place], [address], 03/02/2022 18:45:39 03/02/20 22 03/02/2022 LIPID PANEL HDL cholesterol 81 mg/dL 40- Not Available [facility] (Lab) [address] [place], [address], 03/02/2022 18:45:39 03/02/20 22 03/02/2022 LIPID PANEL LDL cholesterol, calculated 126 mg/dL 0-130 NIH MAYELIN NSUS REPOR T RECOM MENDA TIONS FOR LDL: ADULT CHILD LOW RISK <130 <110 (OPTI MAL LDL) <100 ----- TONYDE RLINE : 130-1 59 ----- HIGH RISK: >160 >130 A TRIGL YCERI DE RESUL T >400 INVAL IDATE S THE CALCU LATIO N FOR LDL FRACT IONAT ION - THE LDL RESUL T WILL NOT BE REPOR ANDIE. Not Available [facility] (Lab) [address] [place], [address], 03/02/2022 18:45:39 03/02/20 22 03/02/2022 CBC/C OMPLE TE BLD COUNT W/DIF F white blood cells 6.5 x10'3 /uL 4.2-[address] [facility] (Lab) [address] [place], [address], 03/02/2022 18:42:31 03/02/20 22 03/02/2022 CBC/C OMPLE TE BLD COUNT W/DIF F red blood cells 4.26 x10'6 /uL 3.80-[address] [facility] (Lab) [address] [place], [address], 03/02/2022 18:42:31 03/02/20 22 03/02/2022 CBC/C OMPLE TE BLD COUNT W/DIF F hemoglobin 13.7 g/dL 12.0-[address] [facility] (Lab) [address] [place], [address], 03/02/2022 18:42:31 03/02/20 22 03/02/2022 CBC/C OMPLE TE BLD COUNT W/DIF F hematocrit 41.1 % 35.7-[address] [facility] (Lab) [address] [place], [address], 03/02/2022 18:42:31 03/02/20 22 03/02/2022 CBC/C OMPLE TE BLD COUNT W/DIF F mean red cell volume 96.5 fL 82.0-[address] [facility] (Lab) [address] [place], [address], 03/02/2022 18:42:31 03/02/20 22 03/02/2022 CBC/C OMPLE TE BLD COUNT W/DIF F mean red cell hemoglobin 32.2 pg 27.0-[address] [facility] (Lab) [address] [place], [address], 03/02/2022 18:42:31 03/02/20 22 03/02/2022 CBC/C OMPLE TE BLD COUNT W/DIF F mean RBC HGB concentratio n 33.3 g/dL 31.0-[address] [facility] (Lab) [address] [place], [address], 03/02/2022 18:42:31 03/02/20 22 03/02/2022 CBC/C OMPLE TE BLD COUNT W/DIF F red cell distribution width 12.3 % 11.8-[address] [facility] (Lab) [address] [place], [address], 03/02/2022 18:42:31 03/02/20 22 03/02/2022 CBC/C OMPLE TE BLD COUNT W/DIF F platelets 333 x10'3 /uL 150-[address] [facility] (Lab) [address] [place], [address], 03/02/2022 18:42:31 03/02/20 22 03/02/2022 CBC/C OMPLE TE BLD COUNT W/DIF F mean platelet volume 9.5 fL 9.0-[address] [facility] (Lab) [address] [place], [address], 03/02/2022 18:42:31 03/02/20 22 03/02/2022 CBC/C OMPLE TE BLD COUNT W/DIF F neutrophils 58.9 % 39.0-[address] [facility] (Lab) [address] [place], [address], 03/02/2022 18:42:31 03/02/20 22 03/02/2022 CBC/C OMPLE TE BLD COUNT W/DIF F lymphocytes 31.7 % 16.0-4 7.0 Not Available [facility] (Lab) [address] [place], [address], 03/02/2022 18:42:31 03/02/20 22 03/02/2022 CBC/C OMPLE TE BLD COUNT W/DIF F monocytes 6.6 % 5.0-[address] [facility] (Lab) [address] [place], [address], 03/02/2022 18:42:31 03/02/20 22 03/02/2022 CBC/C OMPLE TE BLD COUNT W/DIF F eosinophils 1.7 % 1.0-7. 0 Not Available [facility] (Lab) [address] [place], [address], 03/02/2022 18:42:31 03/02/20 22 03/02/2022 CBC/C OMPLE TE BLD COUNT W/DIF F basophils 0.8 % 0.0-2. 0 Not Available [facility] (Lab) [address] [place], [address], 03/02/2022 18:42:31 03/02/20 22 03/02/2022 CBC/C OMPLE TE BLD COUNT W/DIF F immature granulocytes 0.3 % 0.00-[address] [facility] (Lab) [address] [place], [address], 03/02/2022 18:42:31 03/02/20 22 03/02/2022 CBC/C OMPLE TE BLD COUNT W/DIF F neutrophils, absolute count 3.82 x10'3 /uL 1.5-8. [address] [facility] (Lab) [address] [place], [address], 03/02/2022 18:42:31 03/02/20 22 03/02/2022 CBC/C OMPLE TE BLD COUNT W/DIF F lymphocytes, absolute count 2.06 x10'3 /uL 1.07-[address] [facility] (Lab) [address] [place], [address], 03/02/2022 18:42:31 03/02/20 22 03/02/2022 CBC/C OMPLE TE BLD COUNT W/DIF F monocytes, absolute count 0.43 x10'3 /uL 0.29-[address] [facility] (Lab) [address] [place], [address], 03/02/2022 18:42:31 03/02/20 22 03/02/2022 CBC/C OMPLE TE BLD COUNT W/DIF F eosinophils, absolute count 0.11 x10'3 /uL 0.02-[address] [facility] (Lab) [address] [place], [address], 03/02/2022 18:42:31 03/02/20 22 03/02/2022 CBC/C OMPLE TE BLD COUNT W/DIF F basophils, absolute count 0.05 x10'3 /uL 0.01-[address] [facility] (Lab) [address] [facility] [place], [address], 03/02/2022 18:42:31 03/02/20 22 03/02/2022 CBC/C OMPLE TE BLD COUNT W/DIF F immature granulocytes ,absolute 0.02 x10'3 /uL 0.00-[address] [facility] (Lab) [address] [place], [address], 03/02/2022 18:42:31 03/02/20 22 03/02/2022 CBC/C OMPLE TE BLD COUNT W/DIF F nucleated red blood cells 0.0 % -0 Not Available [facility] (Lab) [address] [place], [address], 03/02/2022 18:42:31 03/02/20 22 03/02/2022 CBC/C OMPLE TE BLD COUNT W/DIF F NRBC# 0.00 x10'3 /uL Not Available [facility] (Lab) [address] [place], [address], 03/02/2022 18:42:31 03/25/20 22 03/25/2022 CT, abdom en + pelvi s, w/ contr ast [facility] [address] [facility] [place] [address] Patien t Name: TARYN BAHENA Access ion #: [id number] Sex: F : 1970 9 Locati on: RAD Attend ing Physic guerline: GAVINO RO[facility] Physic guerline: GAVINO ROBLERO Exam Date: 022 9:05 AM Exam Name: CT ABDOME N PELVIS W Admitt ing Diagno sis(es ): RADIOL OGY REPORT - FINAL EXAM: CT ABDOME N PELVIS W HISTOR Y: abd pain 51-yea r-old female with abdomi nal pain, UTI, right abdomi nal palpab le abnorm ality possib ly repres enting lipoma . COMPAR RUTH: None availa ble. TECHNI QUE: Helica l CT images of the abdome n and pelvis were perfor med with 900 ml [address] oral contra st and 100 mL Isovue [address] Sagitt al and ansari l reform atted images were obtain ed. This CT exam was perfor med using 1 or more of the follow ing dose reduct ion techni ques: Automa andie exposu re contro l, adjust ment of the mA and/or kv accord ing to patien t size, or the use of iterat rk recons tructi on techni ques. FINDIN GS: Page 1 of 2 [facility] Patien t Name: TARYN BAHENA Access ion #: [id number] Sex: F : 1970 9 Exam Date: 9:05 AM Exam Name: CT ABDOME N PELVIS W Admitt ing Diagno sis(es ): CT abdome n: The lung bases are clear. The liver, spleen , gallbl adder, pancre as, kidney s, and adrena l glands are unrema rkable . No abdomi nal aortic aneury sm or dissec tion. There is a left upper quadra nt splenu le. There is a skin marker of the right anteri or abdome n (image 26, series 201), with no masses , fluid collec tions, or other focal abnorm alitie s visual ized deep to the skin marker . CT pelvis : No abnorm al bowel dilata tion, free air, free fluid, or suspic ious adenop athy. There is fecal retent ion in the colon. The append ix and urinar y bladde r are unrema rkable . There is advanc ed degene rative disc diseas e L5-S1 with signif icant neural forami nal stenos is on the left at that level. There is mild osteoa rthrit is of the hips and sacroi liac joints . IMPRES ALEKSEY: 1. Fecal retent ion in the colon sugges tive of consti pation . 2. Advanc ed degene rative disc diseas e L5-S1. If the patien t compla ins of lower extrem ity radicu lar sympto ms, consid er follow -up noncon trast MRI of the lumbar spine for evalua tion of the exitin g nerve roots. 3. No eviden ce of bowel obstru ction, acute append icitis , or other acute proces s in the abdome n or pelvis . Create d and electr onical ly signed by: Roly rhodes MD Signed Date: 10:50 AM (CT) Dictat ed by: Roly rhodes MD DD: 10:50 AM (CT) DT: 10:50 AM (CT) Page 2 of [id number] [facility] ([facility]) [address] [facility], [place], [address], 11/01/2022 15:18:24 03/25/20 22 03/25/2022 CT, abdom en + pelvi s, w/ contr ast [facility] [address] [facility] [place] [address] JOSHUAIN G REPORT Patien t Name: TARYN BAHENA ion #: [id number] Sex: F : [birth year] MRN: [id number] Locati on: O Dictat ed By: Bandar Aceves M.D. Attend ing Physic guerline: GAVINO ROBLERO [facility] Physic guerline: GAVINO ROBLERO Exam Date: 9:05 AM Exam Name: CT ABDOME N PELVIS W Admitt ing Diagno sis(es ):Gene ral abd pain. Denies Nausea ,vomit ing or diarrh ea. Small lump rt side marked with BB-pos sible lipoma .No prev surg. Pt is being treate d for UTI Durati on: 1 month RADIOL OGY REPORT - FINAL EXAM DESCRI PTION: CT ABDOME N PELVIS W REASON FOR STUDY: Genera l abd pain. Denies Nausea ,vomit ing or diarrh ea. Small lump rt side marked with BB-pos sible lipoma .No prev surg. Pt is being treate d for UTI Durati on: 1 month TECHNI QUE: CT scan of the abdome n and pelvis perfor med with intrav enous and with oral contra st using helica l scanni ng techni que with dynami c intrav enous contra st inject ion. Recons tructe d ansari l and sagitt al MPR images review ed. All images stored on PACS. Automa andie exposu re contro l was used as a dose optimi zation techni que for this examin ation. CONTRA ST TYPE/D OSE: 100 of iSOVUE 370 900ml Readi - cat inject ed via RT AC 20g COMPAR RUTH: None availa ble Patien t Name: TARYN BAHENA Access ion #: [id number] Page 1 of 3 FINDIN GS: LOWER CHEST: No signif icant pulmon alyssa abnorm alitie s. No effusi on. LIVER: Normal size. No identi fied cystic or solid masses . GALLBL ADDER: Normal . BILE DUCTS: No intrah epatic or extrah epatic ductal dilata tion. SPLEEN : Normal size. No focal lesion s. PANCRE : No identi fied cystic or solid masses . No signif icant calcif icatio ns. No adjace nt inflam mation or peripa ncreat ic fluid collec tions. Pancre atic duct not dilate d. ADRENA LS: Normal . KIDNEY S/URIN ALYSSA TRACT: No identi fied signif icant cystic or solid masses . No visual ized stones . No hydron ephros is or hydrou reter. Symmet rafaela enhanc ement. Urinar y bladde r is unrema rkable . GI: Normal append ix. PERITO NEUM: No ascite s or free air. RETROP ERITON EUM: No mass or adenop athy. REPROD UCTIVE : No signif icant abnorm ality. VASCUL ATURE: No abdomi nal aortic aneury sm. MUSCUL OSKELE RAMONITA: No signif icant abnorm ality. There is a bone island in the chlorinator operator ior aspect of the left iliac bone OTHER: No other abnorm ality. There is a BB marker over the right upper quadra nt no lipoma or soft tissue mass is identi fied. IMPRES ALEKSEY: 1.No acute abnorm ality in the abdome n or pelvis . 2.No abnorm ality identi fied in the locati on of the BB marker . Bandar Aceves M.D. Name: TARYN BAHENA Access ion #: [id number] Page 2 of 3 Signed Date: 022 11:03 AM Dictat ed By: Bandar Aceves M.D. D: 11:03 AM T: 11:03 AM Report ID: [id number] Mildred t Name: TARYN BAHENA Access ion #: [id number] Page 3 of [id number] [facility] [address] [facility], [place], [address], 11/01/2022 15:18:24 04/13/20 22 04/12/2022 MAMMO , scree gadiel, digit al, bilat eral No observ ation record ed. MIGRATION. [facility] [address], [place], [address], 11/01/2022 15:18:24 04/25/20 22 04/25/2022 MAMMO , diagn ostic , bilat eral No observ ation record ed. MIGRATION. [facility] [address], [place], [address], 11/01/2022 15:18:24 07/20/20 23 07/19/2023 CT, abdom en + pelvi s, w/o contr ast No observ ation record ed. [address], [place], [address], 07/31/2023 13:00:07 09/06/19 24 09/06/2023 XR, kidne y + urete r + bladd er No observ ation record ed. [address], [place], [address], 09/07/2023 08:44:58 09/07/19 24 09/06/2023 XR, kidne y + urete r + bladd er No observ ation record ed. [place] [id number] [facility] [address], [place], [address], 09/07/2023 14:50:58 Result Notes None recorded. Problems Name Problem SNOMED Code Status Onset Date Resolution Date Notes Provider Name and Address Organization Details Recorded Time Abdominal bloating 846247715 Completed Not Available [facility] 3 15:15:48 Amenorrhea 59022671 Completed Not Available [facility] 3 15:15:49 Abdominal pain 86976487 Active 2021 Not Available [facility] 3 15:15:49 Headache 34892834 Active Not Available [facility] 3 15:15:49 Lipoma of skin 567901524 Active 2021 Not Available [facility] 3 15:15:49 Porokerato sis 221047991 Active 2019 Not Available [facility] 3 15:15:49 Painless rectal bleeding 131295919 Active 2021 Not Available [facility] 3 15:15:49 Acute urinary tract infection 063695094 Active 2021 Not Available [facility] 3 15:15:49 Anxiety 59235629 Active 2021 Not Available 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 3 15:15:50 Fatigue 99759070 Active Not Available [facility] 3 15:15:50 Dystrophia unguium 47433462 Active 2019 Not Available [facility] 3 15:15:50 Problem Notes None recorded. 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 [address] [place], [address], 11/01/2022 15:18:24 03/25/2022 CT, abdomen + pelvis, w/ contrast completed [id number] [facility] [address] [place], [address], 11/01/2022 15:18:24 04/12/2022 MAMMO, screening, digital, bilateral completed [id number] [facility] [address] [facility] [address], [place], [address], 11/01/2022 15:18:24 04/25/2022 MAMMO, diagnostic, bilateral completed [id number] [facility] [address] [facility] [address], [place], [address], 11/01/2022 15:18:24 07/19/2023 CT, abdomen + pelvis, w/o contrast completed [address] [place] [address], [address], 07/31/2023 13:00:07 09/06/2023 XR, kidney + ureter + bladder completed [address], [address], 09/07/2023 08:44:58 09/06/2023 XR, kidney + ureter + bladder completed [address], [place], [address], 09/07/2023 14:50:58 Procedure Notes None recorded. Medical Equipment None Reported. Allergies No known drug allergies Medications Name Sig Start Date Stop Date Status Note LastModified by Organization Details LastModified Time prednisone 10 mg tablet 10/02 completed Not Available Not Available Not Available nitrofurant oin macrocrysta l 50 mg capsule 07/31 completed Not Available Not Available Not Available ketoconazol e 2 % shampoo 12/17 completed Not Available Not Available Not Available cefpodoxime 200 mg tablet active Not Available Not Available Not Available azithromyci n 250 mg tablet TAKE 2 TABLETS (500 MG) BY ORAL ROUTE ONCE DAILY FOR 1 DAY THEN 1 TABLET (250 MG) BY ORAL ROUTE ONCE DAILY FOR 4 DAYS 10/13 completed Not Available Not Available Not Available tizanidine 4 mg tablet 04/01 completed Not Available Not Available Not Available cephalexin 250 mg capsule 10/02 completed Not Available Not Available Not Available minocycline 100 mg capsule 09/29 completed Not Available Not Available Not Available prednisone 20 mg tablet Take 2 tablets every day by oral route for 7 days. active Not Available Not Available No t Available spironolact one 100 mg tablet 02/25 completed Not Available Not Available Not Available levofloxaci n 250 mg tablet 09/29 completed Not Available Not Available Not Available ciprofloxac in 500 mg tablet 10/02 completed Not Available Not Available Not Available sulfamethox azole 800 mg-trimetho prim 160 mg tablet active Not Available Not Available Not Available peg-electro lyte solution 420 gram oral solution 04/06 completed Not Available Not Available Not Available spironolact one 25 mg tablet 02/25 completed Not Available Not Available Not Available ondansetron 8 mg disintegrat ing tablet 12/12 completed Not Available Not Available Not Available amoxicillin 875 mg tablet active Not Available Not Available Not Available famotidine 20 mg tablet 12/12 completed Not Available Not Available Not Available misoprostol 200 mcg tablet Take 2 tablets by oral route at bedtime for 1 day. active Not Available Not Available No t Available progesteron e micronized 200 mg capsule Take 1 capsule every day by oral route for 12 days. active Not Available Not Available No t Available montelukast 10 mg tablet 12/12 completed Not Available Not Available Not Available ibuprofen 600 mg tablet 12/12 completed Not Available Not Available Not Available hydrocortis one 2.5 % topical ointment active Not Available Not Available Not Available ondansetron 4 mg disintegrat ing tablet active Not Available Not Available N ot Available fluticasone propionate 50 mcg/actuati on nasal spray,suspe nsion 2 sprays each nostril daily active Not Available Not Available No t Available spironolact one 50 mg tablet 10/13 completed Not Available Not Available Not Available clindamycin phosphate 1 % topical solution 03/02 completed Not Available Not Available Not Available nitrofurant oin monohydrate /macrocryst als 100 mg capsule Take 1 capsule twice a day by oral route for 7 days. active Not Available Not Available No t Available tizanidine 4 mg capsule take one capsule at bedtime as needed 04/01 completed Not Available Not Available Not Available Claritin 2021 active Not Available Not Available Not Avai lable spironolact one 05/08 completed Not Available Not Available Not Available multivitami n 2021 active Not Available Not Available Not Avai lable ProAir HFA 90 mcg/actuati on aerosol inhaler Inhale 2 puffs every 4 hours by inhalatio n route as needed. active Not Available Not Available No t Available adapalene 0.3 % topical gel 03/02 completed Not Available Not Available Not Available Virtussin AC 10 mg-100 mg/5 mL oral liquid 10/13 completed Not Available Not Available Not Available Vitals Date Recorded Body mass index (BMI) Body height Heart rate Body temperature Body weight Systolic blood pressure Diastolic blood pressure Provider Name and Address Organization Details Last Updated DateTime 2 28 kg/m2 172.72 cm 74 /min 97.5 [degF] 81162 g 120 mm[Hg] 80 mm[Hg] Not Available [facility] 3 15:15:23 Date Recorded Body mass index (BMI) Body height Heart rate Body temperature Body weight Systolic blood pressure Diastolic blood pressure Provider Name and Address Organization Details Last Updated DateTime 2 28 kg/m2 172.72 cm 64 /min 98.4 [degF] 46926 g 108 mm[Hg] 74 mm[Hg] Not Available [facility] 3 15:15:23 Date Recorded Body mass index (BMI) Body height Heart rate Body temperature Body weight Systolic blood pressure Diastolic blood pressure Provider Name and Address Organization Details Last Updated DateTime 2 27.4 kg/m2 172.72 cm 77 /min 98.3 [degF] 79049.6 3 g 116 mm[Hg] 72 mm[Hg] Not Available [facility] 3 15:15:23 Date Recorded Body mass index (BMI) Body height Heart rate Body temperature Body weight Systolic blood pressure Diastolic blood pressure Provider Name and Address Organization Details Last Updated DateTime 3 28.3 kg/m2 172.72 cm 68 /min 98 [degF] 60765.1 8 g 118 mm[Hg] 78 mm[Hg] Not Available [facility] 3 15:15:23 Date Recorded Body height Body mass index (BMI) Body weight Body temperature Heart rate Systolic blood pressure Diastolic blood pressure Provider Name and Address Organization Details Last Updated DateTime 3 172.72 cm 27.4 kg/m2 75315.6 3 g 98 [degF] 64 /min 120 mm[Hg] 82 mm[Hg] MITRA Lemon [place] [employer] [facility] 3 14:17:44 Social History Question Answer Notes LastModified by Organizat ion Details LastModified Time Tobacco Smoking Status Never Smoker Not Available [facility] 11/01/2022 15:13:38 Do You Have An Advance Directive? No MIGRATION.[id number] Information not available 11/01/2022 What Is Your Level Of Alcohol Consumption? Occasional MIGRATION.67217 [id number] Information not available 11/01/2022 Do You Wear A Helmet When Biking? No MIGRATION.08271 51426 Information not available 11/01/2022 What Is Your Level Of Caffeine Consumption? Heavy MIGRATION.17294 06300 Information not available 11/01/2022 In The 14 Days Before Symptom Onset, Have You Had Close Contact With A Laboratory-confi rmed COVID-19 While That Case Was Ill? No MIGRATION.12663 12586 Information not available 11/01/2022 In The 14 Days Before Symptom Onset, Have You Had Close Contact With A Person Who Is Under Investigation For COVID-19 While That Person Was Ill? No MIGRATION.55782 84029 Information not available 11/01/2022 What Type Of Diet Are You Following? REGULAR MIGRATION.89111 92732 Information not available 11/01/2022 What Is The Highest Grade Or Level Of School You Have Completed Or The Highest Degree You Have Received? 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 No MIGRATION.42073 67067 Information not available 11/01/2022 What Is The Fluoride Status Of Your Home? Unknown MIGRATION.79675 [id number] Information not available 11/01/2022 Are There Any Guns Present In Your Home? No MIGRATION.71573 85963 Information not available 11/01/2022 Do You Use Insect Repellent Routinely? No MIGRATION.07150 54893 Information not available 11/01/2022 Where Do You Live? [facility] MIGRATION.95447 39974 Information not available 11/01/2022 Do You Have A Medical Power Of Photogrammetric Technician? No MIGRATION.99938 33344 Information not available 11/01/2022 What Was The Date Of Your Most Recent Tobacco Screening? 04/02/2023 [email or web address] Information not available 04/02/2023 Have You Ever Been Counseled For Unhealthy Alcohol Use? No MIGRATION.71553 33833 Information not available 11/01/2022 Do You Have Any Pets? Yes MIGRATION.65071 79696 Information not available 11/01/2022 What Is Your Relationship Status? MIGRATION.84324 84401 Information not available 11/01/2022 Do You Use Your Seat Belt Or Car Seat Routinely? Yes MIGRATION.31347 03645 Information not available 11/01/2022 Do You Have Smoke And Carbon Monoxide Detectors In Your Home? Yes MIGRATION.26210 22249 Information not available 11/01/2022 Are You Passively Exposed To Smoke? No MIGRATION.78293 26604 Information not available 11/01/2022 Are There Any Smokers In Your House? No MIGRATION.75502 14303 Information not available 11/01/2022 Do You Feel Stressed (tense, Restless, Nervous, Or Anxious, Or Unable To Sleep At Night)? [id number] Stressed/ anxious But Still Able To Sleep MIGRATION.27421 29419 Information not available 11/01/2022 Do You Use Any Illicit Or Recreational Drugs? No MIGRATION.90778 56789 Information not available 11/01/2022 Do You Use Sunscreen Routinely? Yes MIGRATION.49421 92727 Information not available 11/01/2022 Have You Recently Traveled Abroad? No MIGRATION.94420 39308 Information not available 11/01/2022 Do You Have Any Dietary Restrictions? No MIGRATION.85811 62896 Information not available 11/01/2022 Do You Or Have You Ever Used Any Other Forms Of Tobacco Or Nicotine? No MIGRATION.73758 01024 Information not available 11/01/2022 Sex: Female Functional Status Question Answer Note LastModified by Organizat ion Details LastModified Time What is your exercise level? Moderate [id number] Information not available 11/01/2022 Mental Status None recorded. Family History Relationship Description Onset Age of this Age Resolved Age Notes LastModified by Organization Details LastModified Time Mother Hypertensive disorder [id number] Not available 11/01/2022 15:13:44 Mother Malignant tumor of breast 72 MIGRATION.[id number] Not available 11/01/2022 15:13:44 Mother Malignant melanoma MIGRATION.[id number] Not available 11/01/2022 15:13:44 Father General health good [id number] Not available 11/01/2022 15:13:44 Medical History Condition Response NERVE DISEASE N BLINDNESS N RHEUMATIC FEVER N KIDNEY STONES N BLADDER PROBLEMS N MRSA N OTHER # 1 N POLIO N LUNG DISEASE/DISORDER N HISTORY OF DRUG ABUSE N RADIATION / CHEMOTHERAPY N COPD N Other # 2 N BLOOD DISEASES N EAR OR HEARING PROBLEMS N MUMPS N SHINGLES N BOWEL PROBLEMS N DEPRESSION (INCLUDING POST ) N STROKE/TIA N ULCERS N BENIGN PROSTATIC HYPERPLASIA N MEASLES N HYPOTENSION N MYOCARDIAL INFARCTION N OBESITY N GERD/NAUSEA N ANEURYSM N URINARY/BLADDER/KIDNEY PROBLEMS N CORONARY ARTERY DISEASE (CAD) N ADDICTION CONCERNS N Impotence N ENDOMETRIOSIS N USE OF BLOOD THINNERS N SKIN PROBLEMS Y GASTROINTESTINAL DISORDER N PERIPHERAL VASCULAR DISEASE N MUSCLE,JOINT OR BONE PROBLEMS N GASTROINTESTINAL BLEEDING N BLOOD CLOTS N ASTHMA N CATARACTS N ERECTILE DYSFUNCTION N VARICOSITIES N GI PROBLEMS N Low Testosterone N INFERTILITY N AIDS/HIV N CHEMOTHERAPY / RADIATION N LIVER DISEASE N MALE HYPOGONADISM N HYPERTENSION N Deficiency N TOURETTE'S N ANXIETY DISORDER N BLOOD TRANSFUSION N ANEMIA/BLOOD DISORDER N CHRONIC EAR INFECTIONS N BRONCHITIS N TUBERCULOSIS N GLAUCOMA N FOOT PROBLEM N DIVERTICULITIS N SLEEP APNEA N CHICKENPOX N INFECTIOUS DISEASE N PROSTATE N HEART ARRHYTHMIA N INSOMNIA N HIGH CHOLESTEROL / HYPERLIPIDEMIA N EYE PROBLEMS N HYPERTHYROIDISM N EDEMA N CHRONIC PAIN SYNDROME N HYPOTHYROIDISM N CONSTIPATION N CAROTID BLOCKAGE N BACK / NECK PROBLEMS N HAVE YOU BEEN HOSPITALIZED OR SEEN IN [facility] IN THE PAST YEAR ? N ATHEROSCLEROSIS N BREAST PROBLEMS N DIALYSIS N ECZEMA N OSTEOPOROSIS N ARTHRITIS N APPENDICITIS N DIABETES, TYPE N BAD TEETH N ENT N HEARTBURN / REFLUX N AUTISM SPECTRUM DISORDER (ASD) N HEPATITIS / LIVER DISEASE N GOUT N SLEEP DISORDER N ALZHEIMER'S DISEASE N Brain Problems N DEMENTIA N HERPES N SEIZURES/EPILEPSY N HEADACHES/MIGRAINES Y VASCULAR DISEASE N PACEMAKER N Blood Disorder N DIZZINESS N HEART DISEASE/HEART PROBLEMS N KIDNEY DISEASE N MULTIPLE SCLEROSIS N CANCER: SPECIFY N CARDIAC ARRHYTHMIA N ATRIAL FIBRILLATION N Gall Stones N PULMONARY EMBOLISM N AUTOIMMUNE DISEASE N Gynecological HistoryNo gynecological history recorded. Obstetrics History GPAL:G 0 P 0 0 0 0 Immunizations Vaccine Type Date Status Note Provider Nam e and Address Organization Details Recorded Time COVID-19, mRNA, LNP-S, PF, 100 mcg/0.5mL dose or 50 mcg/0.25mL dose 08/29/2021 completed Not Available [facility] 3 15:18:19 COVID-19, mRNA, LNP-S, PF, 100 mcg/0.5mL dose or 50 mcg/0.25mL dose 10/22/2020 completed Not Available [facility] 3 15:18:19 COVID-19, mRNA, LNP-S, PF, 100 mcg/0.5mL dose or 50 mcg/0.25mL dose 09/23/2020 completed Not Available [facility] 3 15:18:19 Past Encounters Encounter ID Performer Location Encounter Start Date Encounter Closed Date Diagnosis/Indication Diagnosis SNOMED-CT Code Diagnosis ICD10 Code Diagnosis Note [id number] [facility] [address] 03/02/2022 00:00:00 03/12/2022 12:18:06 [id number] [facility] [address] 04/06/2022 00:00:00 04/30/2022 16:36:46 [id number] [facility] Internal Med [facility] [address] [place], [place] [address]christ[place], [facility] [address] [place] [address] 07/31/2022 00:00:00 09/17/2022 17:27:07 [id number] Ab Roblero MD [facility] Internal Med [address] [place] [address] 04/02/2023 13:39:17 04/02/2023 15:43:57 Fatigue 03449810 R53.83 Screening for cardiovascular system disease 344798656 Z13.6 Health Concerns Section Related Observation LastModified by Organization Detai ls LastModified Time None Recorded Concern Status LastModified by Organization Details LastModified Time None Recorded Advance Directives Directive N: Payers Encounter Date Sequence Insurance Name Policy Number Policy Pino Covered Member ID Pino Member ID Guarantor Name 04/02/2023 1 [facility] [id number] Taryn Bahena [id number] Taryn Bahena 04/02/2023 2 [employer] - OPEN ACCESS Arsh Bahena [id number] Taryn Bahena Notes Date Note Type Note Provider Name and Address Organization Details Recorded Time 04/02/2023 text/html anxiety stable fatigue start to creep in Ab Roblero MD [address], [place], [address], [place] - [facility] 04/02/2023 22:09:38 OBGyn Episode No OBEpisode recorded.
--- OUTSIDE RECORDS SUMMARY | 2024-11-28 08:57 | XMS_ITS | Clinical Summary ---
[facility] Organization [facility] Address [address] [facility] Attn: Epic Prelude ADT DONN LEE [id number] Care Team Providers Care Oil Rigger Name Role Phone Unavailable Primary Care Provider Unavailabl e Allergies No known active allergies Medications albuterol sulfate 90 mcg/Actuation inhaler Inhale 2 puffs every 4 hours by mouth as needed. 25.5 Gram 1 03/02/2022 5:29 PM CDT 2 Active PEG-Electrolyte Soln (NULYTELY) 420 g Recon Soln DRINK 1/2 OF PREP AT 5:00 P.M. THE EVENING OF APRIL 2 AND DRINK THE OTHER 1/2 OF PREP AT 5:00 A.M. THE MORNING OF APRIL 3. 4000 mL 04/03/2022 4:21 PM CDT 2 Active traMADoL (ULTRAM) 50 mg tablet Take 1 Tablet (50 mg) by mouth every 6 hours as needed FOR PAIN. 6 Tablet 3 Active hydrocortisone (HYTONE) 2.5 % Ointment Apply to affected area on face twice daily for 2 weeks. 28.35 Gram 03/19/2023 2:28 PM CDT 3 Active ondansetron (ZOFRAN ODT) 4 mg Tablet, Rapid Dissolve Dissolve 1 Tablet (4 mg) by mouth every 8 hours as needed for nausea and vomiting. 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 60 Tablet 2 02/11/2024 2:35 PM CDT 4 Active spironolactone (ALDACTONE) 100 mg tablet Take 1 Tablet (100 mg) by mouth daily. 90 Tablet 1 03/17/2024 6:46 PM CDT 4 Active clobetasoL (TEMOVATE) 0.05 % Ointment Apply topically 2 times daily for 2 weeks for vulvar pruritis. 60 Gram 4 04/10/2024 5:37 PM CDT 4 Active phenazopyridine 100 mg tablet Take 2 tablets by mouth three times daily for 2 days. Take with food. 12 Tablet 04/10/2024 5:37 PM CDT 4 Active spironolactone (ALDACTONE) 100 mg tablet Take 1 Tablet (100 mg) by mouth daily. 90 Tablet 3 4 Active Social History Tobacco Use Types Packs/Day Years Used Date Smoking Tobacco: Never Assessed Comments Unknown Sex and Gender Information Value Date Recorded Sex Assigned at Not on file Legal Sex Female 3:27 PM CDT Gender Identity Not on file Sexual Orientation Not on file Plan of Treatment Health Maintenance Due Date Last Done Comments DTAP/TDAP/TD VACCINES (1 - Tdap) 11/22/1991 HEPATITIS B VACCINES (1 of 3 - 19+ 3-dose series) 11/22/1991 HPV/Cotest (21-29) 1993 CERVICAL CANCER SCREENING 2002 HPV/Cotest (30-65) 2002 PAP SMEAR 2002 BREAST CANCER SCREENING 2012 COLORECTAL SCREENING 2017 Colorectal Cancer Screening 2017 FIT-DNA Q 3 years 2017 FIT/FOBT Q 1 year 2017 Flex Sig/CT Colonography Q 5 years 2017 ZOSTER VACCINE (1 of 2) 2022 INFLUENZA VACCINE (#1) 2024 PNEUMOCOCCAL VACCINE 0-49 YEARS Aged Out No longer eligible based on patient's age to complete this topic Insurance RX [employer] (INTERNAL) [facility] [employer]
--- OUTSIDE RECORDS SUMMARY | 2024-11-28 08:58 | XMS_ITS | Data Portability ---
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 11:36:36 04/05/2022 colonoscopy screening (PROC) [facility] Orly Rbolero MD [address] [place], [address], 06/23/2024 13:10:23 09/05/2024 XR, lumbar spine completed [facility] [address], [place], [address], 09/10/2024 21:52:36 09/05/2024 XR, pelvis completed [facility] [address], [place], [address], 09/10/2024 21:52:36 09/05/2024 XR, lumbar spine completed [facility] [address], [place], [address], 09/10/2024 21:52:37 Procedure Notes None recorded. Medical Equipment None Reported. Allergies No known drug allergies Medications Name Sig Start Date Stop Date Status Note LastModified by Organization Details LastModified Time cefpodoxime 200 mg tablet 06/12 completed Not Available Not Available Not Available spironolacto ne 100 mg tablet Take 1 tablet every day by oral route. active Not Available Not Available No t Available sulfamethoxa zole 800 mg-trimethop rim 160 mg tablet 06/12 completed Not Available Not Available Not Available amoxicillin 875 mg tablet 06/12 completed Not Available Not Available Not Available hydrocortiso ne 2.5 % topical ointment active Not Available Not Available Not Available ondansetron 4 mg disintegrati ng tablet 06/12 completed Not Available Not Available Not Available nitrofuranto in monohydrate/ macrocrystal s 100 mg capsule Take 1 capsule every 12 hours by oral route with meals for 5 days. 06/12 completed Not Available Not Available Not Available Zyrtec 10 mg capsule Take by oral route. active Not Available Not Available No t Available Vitals Date Recorded Body height Body mass index (BMI) Body weight Heart rate Oxygen saturation Oxygen saturation in Arterial blood by Pulse oximetry Systolic blood pressure Diastolic blood pressure Provider Name and Address Organization Details Last Updated DateTime 4 171.45 cm 28.8 kg/m2 39392.4 1 g 64 /min 97 % 97 % 130 mm[Hg] 70 mm[Hg] Alfreda Skinner MA [facility] 4 14:20:05 Date Recorded Body height Body mass index (BMI) Body weight Heart rate Oxygen saturation Oxygen saturation in Arterial blood by Pulse oximetry Systolic blood pressure Diastolic blood pressure Provider Name and Address Organization Details Last Updated DateTime 5 171.45 cm 29.8 kg/m2 79063.4 1 g 65 /min 99 % 99 % 126 mm[Hg] 68 mm[Hg] Alfreda Skinner MA [facility] 5 15:25:07 Social History Question Answer Notes LastModified by Organizat ion Details LastModified Time Tobacco Smoking Status Never Smoker Alfreda Skinner MA null, [facility] 06/12/2024 14:12:56 Do You Have An Advance Directive? Yes Information not available 06/12/2024 What Is Your Level Of Alcohol Consumption? Moderate Information not available 06/12/2024 Are You Blind Or Do You Have Difficulty Seeing? No Information not available 06/12/2024 What Is Your Level Of Caffeine Consumption? Occasional Information not available 06/12/2024 In The 14 Days Before Symptom Onset, Have You Had Close Contact With A Laboratory-confi rmed COVID-19 While That Case Was Ill? No Information not available 06/12/2024 In The 14 Days Before Symptom Onset, Have You Had Close Contact With A Person Who Is Under Investigation For COVID-19 While That Person Was Ill? No Information not available 06/12/2024 Have You Been To An Area Known To Be High Risk For COVID-19? No Information not available 06/12/2024 Are You Currently Employed? Yes Information not available 06/12/2024 Are You Deaf Or Do You Have Serious Difficulty Hearing? No Information not available 06/12/2024 What Type Of Diet Are You Following? 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 No Information not available 06/12/2024 What Was The Date Of Your Most Recent Tobacco Screening? 09/05/2024 Information not available 09/05/2024 What Is Your Relationship Status? Information not available 06/12/2024 Do You Use Your Seat Belt Or Car Seat Routinely? Yes Information not available 06/12/2024 Do You Have Smoke And Carbon Monoxide Detectors In Your Home? Yes Information not available 06/12/2024 Do You Feel Stressed (tense, Restless, Nervous, Or Anxious, Or Unable To Sleep At Night)? [id number] Sleeping Issues Information not available 06/12/2024 Do You Use Any Illicit Or Recreational Drugs? No Information not available 06/12/2024 Do You Use Sunscreen Routinely? Yes Information not available 06/12/2024 Has Tobacco Cessation Counseling Been Provided? No Information not available 06/12/2024 Do You Or Have You Ever Used Any Other Forms Of Tobacco Or Nicotine? No Information not available 06/12/2024 Sex: Female Functional Status Question Answer Note LastModified by Organization D etails LastModified Time Are you able to care for yourself? Yes Information n ot available 06/12/2024 What is your exercise level? None Information not available 06/12/2024 Mental Status None recorded. Family History Relationship Description Onset Age of this Age Resolved Age Notes LastModified by Organization Details LastModified Time Father Alcohol abuse mebyma Not available 2023 14:11:22 Father Cerebrovascu lar disease mebyma Not available 06/03 14:11:45 Father Dementia mebyma Not available 1 14:11:55 Father Depressive disorder mebyma Not available 2023 14:12:18 Brother Attention deficit hyperactivit y disorder mebyma Not available 06/12 14:11:28 Brother Depressive disorder mebyma Not available 2023 14:12:18 Mother Malignant tumor of breast mebyma Not available 2023 14:11:36 Mother Depressive disorder mebyma Not available 2023 14:12:18 Mother Hypertensive disorder mebyma Not available 2023 14:12:27 Medical History No medical history recorded. Gynecological History Statement/Question Response If Post Menopausal, Age at Menopause 53 Obstetrics History GPAL:G 2 P 2 0 0 2 Type Value Full Term 2 Living 2 Total 2 Immunizations Vaccine Type Date Status Note Provider Nam e and Address Organization Details Recorded Time COVID-19, mRNA, LNP-S, PF, 100 mcg/0.5mL dose or 50 mcg/0.25mL dose 09/23/2020 completed Alvaro Kelley [place] null, [place] - [facility] 06/24/2024 12:01:34 COVID-19, mRNA, LNP-S, PF, 100 mcg/0.5mL dose or 50 mcg/0.25mL dose 10/22/2020 completed Alvaro Kelley [place], [place] [facility] 06/24/2024 12:01:34 COVID-19, mRNA, LNP-S, PF, 100 mcg/0.5mL dose or 50 mcg/0.25mL dose 08/29/2021 completed Alvaro Kelley [place], [place] [facility] 06/24/2024 12:01:34 Influenza, split virus, quadrivalent, PF 05/28/2023 completed MEHRDAD Nunez NP Attn: Accounting,[address], [place], [address], [facility] 07/02/2023 10:46:53 Past Encounters Encounter ID Performer Location Encounter Start Date Encounter Closed Date Diagnosis/Indication Diagnosis SNOMED-CT Code Diagnosis ICD10 Code Diagnosis Note [id number] MEHRDAD Nunez NP [facility] [address] [place] [address] 06/19/2023 15:32:41 07/03/2023 10:56:05 Active or passive immunization 855598385 Z23 [id number] MEHRDAD Nunez NP [facility] [address] [place] [address] 09/10/2023 15:37:25 09/10/2023 15:40:32 Abdominal bloating 275963206 R14.0 [id number] Orly Roblero MD [facility] [place] [address] [place] [address] 06/12/2024 13:49:43 06/12/2024 15:17:31 Fatigue 77272969 R53.83 Joint pain 64227731 M25. 52 Screening for cardiovascular system disease 874806652 Z13.6 Diabetes m ellitus screening 783119700 Z13.1 [id number] Orly Roblero MD [facility] (Adult Med) [address] [place] [address] 09/05/2024 15:15:57 09/05/2024 16:14:21 Body mass index 25-29 - overweight 010235098 Z68.29 Overweight 754923417 E66 .3 Low back pain 855587565 M54.50 Contusion of right buttock 7060056937 7109 S30.0XXA Health Concerns Section Related Observation LastModified by Organization Detai ls LastModified Time None Recorded Concern Status LastModified by Organization Details LastModified Time None Recorded Advance Directives Directive Y: Payers Encounter Date Sequence Insurance Name Policy Number Policy Pino Covered Member ID Pino Member ID Guarantor Name 05/28/2023 1 [facility] [id number] Taryn Bahena [id number] Taryn Bahena 09/10/2023 1 [facility] [id number] Taryn Bahena [id number] Taryn Bahena 06/12/[address] [facility] [id number] Taryn Bahena [id number] Taryn Bahena 06/12/2024 2 [facility] [id number] Arsh Bahena [id number] Taryn Baehna 09/05/[address] [facility] [id number] Taryn Bahena [id number] Taryn Bahena 09/05/2024 2 [facility] [id number] Arsh Bahena [id number] Taryn Bahena Notes Date Note Type Note Provider Name and Address Organization Details Recorded Time 06/12/2024 text/html overall doing pr debbi good she has had some joint pain fatigue insomnia night sweats perimenopausal and menopausal symptoms Orly Roblero MD Attn: Accounting[address] [place], [address], [facility] 06/14/2024 18:20:03 09/05/2024 text/html carrying laundry down the steps a few days ago and she fell on her buttocks and down 6 steps did not hit her head no loss of consciousness was ambulatory afterwards but sore over the next 24 hours or so she was taking Motrin and she noticed lots of bruising in her right buttock area about 48 hours after that she was carrying some laundry was not going up and down steps but she twisted and felt her back started to hurt a little bit in her lower lumbar area no numbness or tingling no bowel or bladder incontinence pain moderate. Actually walked yesterday for a pretty good distance and feels better walking she has had no headache dizziness there has been no neck pain no other injuries Orly Roblero MD Attn: Accounting[address] [place], [address], [facility] 09/05/2024 22:55:16 OBGyn Episode No OBEpisode recorded.
== END 2024-11-28 08:41 | disposition home or self-care (01) ==
PROVIDERS: PCP Internal Medicine; Visit Provider Obstetrics & Gynecology
DX: Z12.31 Encounter for screening mammogram for malignant neoplasm of breast (principal)
CPT/HCPCS: 77063; 77067

== ENCOUNTER 2025-02-20 15:06 | Emergency (ER) | payer OTHER, SELFPAY ==
[2025-02-20 15:24] VITALS: BP 123/74; PULSE 63; RESP 16; TEMP 36.6; O2SAT 100
--- NOTE | 2025-02-20 15:35 | ED_ITS ---
HPI - Skin/Abscess/Foreign Bdy General Chief complaint: Skin/Abscess/Foreign Body Stated complaint: nose Time Seen by Provider: 02/20/25 15:36 Source: patient and RN notes reviewed Mode of arrival: ambulatory Limitations: dementia History of Present Illness HPI narrative: 54-year-old female presents with concern for a red area on the bridge of her nose. She reports it started off as a small piece of dry skin and when this dry skin flaked off the area was pink and was tender. Reports she is concern for infection. She denies drainage. She put moisturizer on it. She denies fever MD complaint: other (Redness) Related Data Home Medications ?Medication ?Instructions ?Recorded ?Confirmed ?Last Taken ?Type multivitamin,vf-gspb-mujrflvl 1 tablet PO DAILY 09/23/20 02/20/25 3 Days Ago History (Complete Multivitamin tablet) ~09/28/20 magnesium 250 mg tablet 250 mg PO DAILY 09/13/22 02/20/25 Unknown History cetirizine 10 mg tablet (24Hour 10 mg PO DAILY 02/20/25 02/20/25 Unknown History Allergy) Allergies Allergy/AdvReac Type Severity Reaction Status Date / Time No Known Allergies Allergy Unknown Verified 02/20/25 15:20 Review of Systems Review of Systems: CONSTITUTIONAL: Denies malaise, chills, sweats, or fever. SKIN: Reports redness, tenderness to the bridge of the nose. Denies purulent drainage, vesicles, bullae, numbness, pain beyond proportion MUSCULOSKELETAL: Denies myalgia. NEUROLOGIC: Reports headache. All systems reviewed & are unremarkable except as noted in HPI and below PMFSH Past Medical History Medical History Asthma Bloating Colon cancer screening IBS (irritable bowel syndrome) Slow transit constipation NENO (stress urinary incontinence, female) Surgical History Surgical History History of bladder surgery sling History of excision of mass 09/22/2022 - excision subcutaneous lipoma of the right upper quadrant of abdomen History of hysteroscopy S/P dilation and curettage Amenorrhea; benign pathology Family History Family History Father Hypertension Other Breast cancer Social History Social History Smoking status: Never smoker Alcohol intake: current Drinks per week: 1 Substance use: never Substance use type: does not use Lack of Transportation: No Lack of Food: Never True Current Housing: I Have Housing Concerned About Future Housing: No Difficulty Paying Gas/Electric Bills: No Difficulty Paying for Meds: No Currently Unemployed: No Education: Master's Degree or Higher Difficulty w/ Childcare or Family Care: No Living arrangements: with family 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 There is no relevant family history pertinent to the presenting complaint Exam Narrative: GENERAL: Well-appearing, well-nourished, and in no acute distress. HEAD: Normocephalic, atraumatic. EYES: PERRLA, conjunctivae clear ENT: Mucous membranes moist. NECK: Supple. No lymphadenopathy CHEST: Clear to auscultation. No respiratory distress. HEART: Regular rate and rhythm. SKIN: Warm, dry. 1 cm area of Erythema without edema, induration, tenderness, noted to the bridge of the No vesicles, bullae, necrosis, ecchymosis, crepitus noted. NEURO: Alert and oriented x3. PSYCH: Normal mood and affect Course Course Emergency Course: Patient is aware of diagnosis, understands and agrees to treatment plan. Anticipatory guidance given. Patient agrees to follow-up as directed and is aware of reasons to seek care at the emergency department. Portions of this record may have been created with voice recognition software Level of Care: Express Care Visit Vital Signs Vital signs: Vital Signs Temperature 97.9 F 02/20/25 15:24 Pulse Rate 63 02/20/25 15:24 Respiratory Rate 16 02/20/25 15:24 Blood Pressure 123/74 02/20/25 15:24 Pulse Oximetry 100 02/20/25 15:24 Temperature 97.9 F 02/20/25 15:24 Pulse Rate 63 02/20/25 15:24 Respiratory Rate 16 02/20/25 15:24 Blood Pressure 123/74 02/20/25 15:24 Pulse Oximetry 100 02/20/25 15:24 Reviewed. MDM - Skin/Abscess/Foreign Bdy MDM Narrative Medical decision making narrative: I evaluated this in the express care. History is obtained from patient who is an independent historian and physical exam was performed.? Available medical records were reviewed. ? Exam findings and relevant testing show no acute concerns or changes; patient is non-toxic appearing and is in no distress. Does not appear at this time to be erythema multiforme, bullous, SJS, TEN; no evidence at this time to suggest RMSF, NSTI, endocarditis or Lyme disease; patient looks well, nontoxic and is tolerating oral intake; no neurologic signs or symptoms; no headache, photophobia or neck pain; afebrile.? Patient does not have history of of penetrating trauma, laceration, blunt trauma, recent surgery, immunosuppression, malignancy, obesity, alcoholism, corticosteroid use.? Discussed the importance of follow-up, patient agrees; question, cellulitis versus necrotizing soft tissue infection versus abscess.?? Patient is appropriate for outpatient treatment and follow-up. Critical Care Time Critical Care Time Critical Care Time: No Discharge Plan Discharge Clinical Impression: Superficial bacterial skin infection Patient Disposition: Home Condition: Stable Instructions: Antibiotic Form, Warm Compress or Soak (ED) Additional Instructions: Please follow up if your symptoms worsen. Apply moist heat 3-4 times daily for 10-15 minutes. Take Motrin 600mg every 8 hours with food for pain. Please use antibiotic ointment as directed. If you experience any worsening redness, swelling, streaking (red lines), fever or chills please go to the ER Patient Language: Vietnamese Prescriptions: New mupirocin 2 % ointment 1 applic topical BID 7 Days Qty: 22 0RF No Action cetirizine [24Hour Allergy] 10 mg tablet 10 mg PO DAILY estradiol 0.01 % (0.1 mg/gram) cream 1 g vaginal 2XW Qty: 42.5 5RF Rx Instructions: the first two weeks, should use 1g vaginally every other day--- then continue using twice weekly Complete Multivitamin Tablet 1 tablet PO DAILY magnesium 250 mg Tablet 250 mg PO DAILY Follow-up/Referrals: Osbaldo,MD Ab [Primary Care Provider] - Time of Disposition: 15:47
== END 2025-02-20 15:49 | disposition home or self-care (01) ==
PROVIDERS: Emergency Provider Nurse Practitioner; PCP Internal Medicine
DX: L08.9 Local infection of the skin and subcutaneous tissue, unspecified (principal); B96.89 Other specified bacterial agents as the cause of diseases classified elsewhere; J45.909 Unspecified asthma, uncomplicated
CPT/HCPCS: 99213; G0463

== ENCOUNTER 2025-02-21 17:58 | Emergency (ER) | payer OTHER, SELFPAY ==
[2025-02-21 18:06] VITALS: BP 121/73; PULSE 70; RESP 16; TEMP 36.4; O2SAT 97
--- NOTE | 2025-02-21 18:36 | ED_ITS ---
HPI - General Adult General Chief complaint: Skin/Abscess/Foreign Body Stated complaint: Skin Imfection Source: patient Mode of arrival: ambulatory Limitations: no limitations History of Present Illness HPI narrative: Patient presents for evaluation of redness and pain to the nasal bridge. She states she 1st noticed some dry skin to the nasal bridge 4 days ago. Yesterday the area became red and tender. She was evaluated here and was given mupirocin. She states she was offered oral antibiotics at that time but declined that prescription. She has applied the ointment twice. She now has worsening tenderness that shoots up toward her forehead. She is concerned that her symptoms are related to cellulitis or a sinus infection. She denies any sinus congestion or drainage. No fever, chills, or purulent drainage. Related Data Home Medications ?Medication ?Instructions ?Recorded ?Confirmed ?Last Taken ?Type multivitamin,[id number] 1 tablet PO DAILY 09/23/20 02/20/25 3 Days Ago History (Complete Multivitamin tablet) ~09/28/20 magnesium 250 mg tablet 250 mg PO DAILY 09/13/22 02/20/25 Unknown History cetirizine 10 mg tablet (24Hour 10 mg PO DAILY 02/20/25 02/20/25 Unknown History Allergy) Allergies Allergy/AdvReac Type Severity Reaction Status Date / Time No Known Allergies Allergy Unknown Verified 02/21/25 18:02 Review of Systems Review of Systems: CONSTITUTIONAL: Denies fever, chills, or sweats. EYES: Denies visual changes, redness, or discharge. ENT: Reports pain to nasal bridge. Denies rhinorrhea, congestion, sore throat, or otalgia. CARDIOVASCULAR: Denies chest pain, palpitations, or edema. RESPIRATORY: Denies cough or dyspnea. GASTROINTESTINAL: Denies abdominal pain, nausea, vomiting, or diarrhea. GENITOURINARY: Denies dysuria or hematuria. SKIN: Reports redness to the nasal bridge MUSCULOSKELETAL: Denies back pain, joint pain, or myalgia. NEUROLOGIC: Denies headache, numbness, dizziness, or weakness. PSYCHIATRIC: Denies anxiety or depression. [facility] Past Medical History Medical History Colon cancer screening Bloating IBS (irritable bowel syndrome) Slow transit constipation Asthma NENO (stress urinary incontinence, female) Surgical History Surgical History History of excision of mass 09/22/2022 - excision subcutaneous lipoma of the right upper quadrant of abdomen History of bladder surgery sling History of hysteroscopy S/P dilation and curettage Amenorrhea; benign pathology Family History Family History Father Hypertension Other Breast cancer Social History Social History Smoking status: Never smoker Alcohol intake: current Drinks per week: 1 Substance use: never Substance use type: does not use Lack of Transportation: No Lack of Food: Never True Current Housing: I Have Housing Concerned About Future Housing: No Difficulty Paying Gas/Electric Bills: No Difficulty Paying for Meds: No Currently Unemployed: No Education: Master's Degree or Higher Difficulty w/ Childcare or Family Care: No Living arrangements: with family 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 HEAD: Normocephalic, atraumatic. EYES: PERRLA and EOMI. ENT: Nares clear, no rhinorrhea or epistaxis. Nasal bridge is tender to palpation. Mucous membranes moist. Oropharynx without tonsillar hypertrophy exudate or other lesions. Bilateral TMs pearly cano nonbulging NECK: Supple. No adenopathy or masses. No carotid bruits or JVD CHEST: Clear to auscultation. No respiratory distress. No wheezes rales or rhonchi HEART: Regular rate and rhythm. No murmur heard. Normal peripheral pulses. ABDOMEN: Soft, nontender, nondistended, normal active bowel sounds. EXTREMITIES: Normal range of motion. No edema. SKIN: There are two small areas of erythema to nasal bridge that are both about 2-3 mm in size. Warm, dry, no rash. NEURO: No focal deficits. Alert and oriented x3. PSYCH: Normal mood and affect. Course Course Emergency Course: This is a 54-year-old female who presented for evaluation of pain and redness to the nasal bridge. She is extremely concerned about her symptoms. We discussed trying an oral antibiotic. I recommended doxycycline. She indicates that is caused her to break out in the past. We then discussed starting clindamycin, to which she was agreeable. I recommended that she take a probiotic to avoid C diff. She states she ready drinks, but check daily. I advised that she stop taking the antibiotic in the event that she develops diarrhea. Application of warm moist heat may help. Follow up with primary provider. Go to the ER for worsening symptoms. Patient in agreement with plan of care. Level of Care: Express Care Visit Vital Signs Vital signs: Vital Signs Temperature 36.4 C 02/21/25 18:06 Pulse Rate 70 02/21/25 18:06 Respiratory Rate 16 02/21/25 18:06 Blood Pressure 121/73 02/21/25 18:06 Pulse Oximetry 97 02/21/25 18:06 Temperature 36.4 C 02/21/25 18:06 Pulse Rate 70 02/21/25 18:06 Respiratory Rate 16 02/21/25 18:06 Blood Pressure 121/73 02/21/25 18:06 Pulse Oximetry 97 02/21/25 18:06 Medical Decision Making Vital Signs Vital Signs: Vital Signs Temperature 36.4 C 02/21/25 18:06 Pulse Rate 70 02/21/25 18:06 Respiratory Rate 16 02/21/25 18:06 Blood Pressure 121/73 02/21/25 18:06 Pulse Oximetry 97 02/21/25 18:06 Temperature 36.4 C 02/21/25 18:06 Pulse Rate 70 02/21/25 18:06 Respiratory Rate 16 02/21/25 18:06 Blood Pressure 121/73 02/21/25 18:06 Pulse Oximetry 97 02/21/25 18:06 Discharge Plan Discharge Clinical Impression: Cellulitis Patient Disposition: Home Condition: Stable Instructions: Antibiotic Form, Cellulitis (ED) Patient Language: Tunisian Prescriptions: New clindamycin HCl [Cleocin HCl] 300 mg capsule 300 mg PO Q6H Qty: 40 0RF No Action cetirizine [24Hour Allergy] 10 mg tablet 10 mg PO DAILY mupirocin 2 % ointment 1 applic topical BID 7 Days Qty: 22 0RF estradiol 0.01 % (0.1 mg/gram) cream 1 g vaginal 2XW Qty: 42.5 5RF Rx Instructions: the first two weeks, should use 1g vaginally every other day--- then continue using twice weekly Complete Multivitamin Tablet 1 tablet PO DAILY magnesium 250 mg Tablet 250 mg PO DAILY Follow-up/Referrals: Jose Ramon Roblero RT(R) [Primary Care Provider] - Time of Disposition: 18:35
== END 2025-02-21 18:36 | disposition home or self-care (01) ==
PROVIDERS: Emergency Provider Nurse Practitioner
DX: J34.0 Abscess, furuncle and carbuncle of nose (principal)
CPT/HCPCS: 99213; G0463

== ENCOUNTER 2025-06-30 08:02 | Outpatient (CLI) | payer OTHER, SELFPAY ==
--- NOTE | ~2025-06-30 | US_ITS ---
PROCEDURE(S): Ultrasound pelvic complete with transvaginal INDICATION: Postmenopausal uterine bleeding COMPARISON(S): None. TECHNIQUE: Grayscale and color Doppler and spectral analysis, both transabdominal and transvaginal. FINDINGS: The uterus measures 7.3 x 4.7 cm transverse diameter, and 5.0 cm in AP diameter. The endometrium measures 4-5 mm in thickness. The ovaries are seen bilaterally and appear normal. There are no adnexal masses. There is normal blood flow to both ovaries. There is no free pelvic fluid. IMPRESSION: The endometrial thickness is upper limits of normal. Otherwise negative. Reviewed, dictated and finalized at location A. IMPRESSION: The endometrial thickness is upper limits of normal. Otherwise nega tive.
== END 2025-06-30 08:03 | disposition home or self-care (01) ==
LOC: GOSHIMG 08:03
PROVIDERS: PCP Obstetrics & Gynecology; Visit Provider Student in an Organized Health Care Education/Training Program
DX: N95.0 Postmenopausal bleeding (principal)
CPT/HCPCS: 76830; 76856

== ENCOUNTER 2025-07-13 01:30 | Day surgery (SDC) | payer OTHER, SELFPAY ==
--- OUTSIDE RECORDS SUMMARY | 2025-06-09 07:40 | XMS_ITS | Continuity of Care Document ---
Author Organization [facility] Address [address] [place] [address] Phone Care Team Providers Care Therapeutic Strategy Lead Name Role Phone Management, Case Unavailable Unavailable Procedures Procedure Date Immun admin-adult or WO counseling - fir st vaccine/toxoid INFLUENZA VACCINE IIV3 Advance Directives Directive Yes / No Effective Date File Name No Information Encounters Encounter Description Practice Location Reason(s) For Visit Diagnoses Date Provider Providers Copied on Encounter [facility] , [address], [place], [place], [id number], tel:[phone] [facility] On Tad immunizatio n/vaccinati on (chief complaint) No Information Management Case. [address], [place], [place], [id number], . tel:[phone] Referring Provider: Myrna Garcias, [address], [place], [address] . tel:[phone] Family History Family Member Type Diagnosis Age At Onset No Information Immunizations Vaccine Date Status Comments FluLaval(VFC)/Fluzone(Privat e)/Fluarix(317) administered Note: pt tolerated w ell ; Source: New Immunization Record Payers Payer name Insurance type Covered democrat ID Authoriza tion(s) [facility] Choice Plus CI [id number] 1 Social History Type Description Quantity Date Captured Comments Alcohol Use Details Unknown Caffeine Use Details Unknown Tobacco Use Status No Information Smoking Status No Information Sex Female Chief Complaint And Reason For Visit From encounter dated '06/09/2025 13:40'. immunization/vaccination (chief complaint). Description: Dose Vaccine CVX CPT Status Source Date Ordered Admin Date/Time Administered By Amount Lot Expiration Date Property Adjuster Route Site Notes Entered By Modified1 FluLaval([facility])/Fluzone(Private)/[id number] Administered New 06/09/2025 05/23/2025 01:41 PM Begic, [place] 0.5 [id number] 03/02/2026 sanofi pasteur Intramuscular Left Deltoid pttolerated well Diallo Cartwright Narnell ( Reason For Referral Reason For Referral No Information History Of Present Illness Encounter Date Complaint History Of Prese nt Illness immunization/vaccination Dose Va ccine CVX CPT Status Source Date Ordered Admin Date/Time Administered By Amount Lot Expiration Date Property Adjuster Route Site Notes Entered By Modified1 FluLaval([facility])/Fluzone(Private)/[id number] Administered New 06/09/2025 05/23/2025 01:41 PM Begic, [place] 0.5 [id number] 03/02/2026 sanofi pasteur Intramuscular Left Deltoid pt tolerated well Diallo Cartwright Narnell ( Functional Status Date Functional Assessmen t No Information Instructions Date Instruction Additional Infor mation No Information Assessments Type Assessment Date No Information Patient Care Teams Name Effective Dates (start - stop) Status Members No Information
--- NOTE | 2025-07-07 12:26 | SUR.PREOP ---
[facility] has started construction of its new state of the art ER which will open Spring 2026. With this, we anticipate parking may be a challenge for some our surgical patients and families. Parking spaces are limited but are available for all Surgical, obstetrics, and ER patients sharing this lot. If you arrive and find you are having a hard time finding a parking space, please note that we understand the challenges, please drive around the hospital and park near Hospital Entrance 1. When you enter this entrance, you can ask a volunteer to direct or take you back to the surgical waiting area to check in. We appreciate everyone?s understanding of these expected challenges while we build for your future. Report to the Outpatient Waiting Room, entrance under the green pavilion located off [address], at time _11AM__ on date _07/13/25__. Planned Procedure Time: _1PM__.? Time changes happen often and if your time is changed the preop area will call you the afternoon before. - You and your visitor will be asked to self-screen and do not enter if you have any COVID symptoms. Please call surgeon if you need to reschedule. - A mask is optional within the hospital at this time. Patients may have clear liquids (water, carbonated beverages, clear teas, apple juice) until 3 hours prior to surgery with a maximum of 20 ounces. - No food from midnight until time of surgery and no smoking, or chewing tobacco (or any form of nicotine). No chewing gum, candy or mints. Take only the following medications with a SIP of water on the morning of surgery: _None__ DO NOT STOP ANY OF YOUR OTHER PRESCRIPTION MEDICATIONS PRIOR TO SURGERY EXCEPT THE FOLLOWING Hold all vitamins and supplements for 3 days per anesthesiologist. Medications to discontinue per physician _none__ Date to take last dose___07/09/25 Please no make-up, nail turkmen, hairspray, perfume, deodorant, or body powder the day of surgery.? No jewelry (including any body piercings) or valuables the day of surgery, leave them at home.? Please take a shower or bath the night before, or the morning of, surgery with an antibacterial soap.? Wear comfortable, loose fitting clothing. - Jewelry must be removed prior to entering the operating room.? Rings and piercings that are not removed may be cut off. - The hospital will not accept responsibility for valuables.? - Please leave all valuables, including medications, at home the day of surgery. If you are going home after surgery, a licensed hearse driver must drive you home.? - NO public transportation without another adult if you receive anesthesia. - We recommend that an adult stay with you for 24 hours following discharge. - We also recommend that you do not drive, make important decision, drink alcoholic beverages, or take any drugs that were not prescribed by your health care provider for at least 24 hours after your discharge time. Follow any additional instructions given to you from your surgeon. Telephone instructions given to __Debra__and asked if any additional questions and then verbalized understanding. Patient advised to call surgeon office or pre surgery nurse liaison [phone] if any additional questions.
[2025-07-07 12:44] VITALS: BMI 29.9
--- NOTE | 2025-07-07 12:55 | SUR.PREOP ---
[facility] has started construction of its new state of the art ER which will open Spring 2026. With this, we anticipate parking may be a challenge for some our surgical patients and families. Parking spaces are limited but are available for all Surgical, obstetrics, and ER patients sharing this lot. If you arrive and find you are having a hard time finding a parking space, please note that we understand the challenges, please drive around the hospital and park near Hospital Entrance 1. When you enter this entrance, you can ask a volunteer to direct or take you back to the surgical waiting area to check in. We appreciate everyone?s understanding of these expected challenges while we build for your future. Report to the Outpatient Waiting Room, entrance under the green pavilion located off [address], at time _11AM__ on date _07/13/25_. Planned Procedure Time: __1PM__.? Time changes happen often and if your time is changed the preop area will call you the afternoon before. - You and your visitor will be asked to self-screen and do not enter if you have any COVID symptoms. Please call surgeon if you need to reschedule. - A mask is optional within the hospital at this time. Patients may have clear liquids (water, carbonated beverages, clear teas, apple juice) until 3 hours prior to surgery with a maximum of 20 ounces. - No food from midnight until time of surgery and no smoking, or chewing tobacco (or any form of nicotine). No chewing gum, candy or mints. Take only the following medications with a SIP of water on the morning of surgery: __none__ DO NOT STOP ANY OF YOUR OTHER PRESCRIPTION MEDICATIONS PRIOR TO SURGERY EXCEPT THE FOLLOWING Hold all vitamins and supplements for 3 days per anesthesiologist. Medications to discontinue per physician __none___ Date to take last dose_07/09/25_ Please no make-up, nail sammarinese, hairspray, perfume, deodorant, or body powder the day of surgery.? No jewelry (including any body piercings) or valuables the day of surgery, leave them at home.? Please take a shower or bath the night before, or the morning of, surgery with an antibacterial soap.? Wear comfortable, loose fitting clothing.? - Jewelry must be removed prior to entering the operating room.? Rings and piercings that are not removed may be cut off. - The hospital will not accept responsibility for valuables.? - Please leave all valuables, including medications, at home the day of surgery. If you are going home after surgery, a licensed shuttle driver must drive you home.? - NO public transportation without another adult if you receive anesthesia. - We recommend that an adult stay with you for 24 hours following discharge. - We also recommend that you do not drive, make important decision, drink alcoholic beverages, or take any drugs that were not prescribed by your health care provider for at least 24 hours after your discharge time. Follow any additional instructions given to you from your surgeon. Telephone instructions given to _Debra__and asked if any additional questions and then verbalized understanding. Patient advised to call surgeon office or pre surgery nurse liaison [phone] if any additional questions.
--- NOTE | 2025-07-12 16:06 | PM.IMHP ---
H&P: HPI History of Present Illness Date/Time: 07/12/25 16:06 Chief Complaint: PMB Narrative: Taryn is a postmenopausal 54yo P2002, LMP 10/2022 who presents for PMB. She reports she has not had a cycle since 52yo. Had 1 episode of bleeding, but [employer] US 05/2024 showed an ET of 2mm; has not had any further bleeding since then. She has been having worse hot flashes, night sweats, weight gain that she can deal with. What is really bothering her is the severe mood changes; anxiety/depression, palpitations. She was started on estradiol 0.0375mg and micronized progesterone 100mg qhs. She reports feeling amazing, feeling like her old self again. She reports her moods are absolutely 100% improved, which was her biggest issue (has actually have some SI); she denies palpitations. Even her hot flashes and night sweats are improved. She denies any bothersome side effects. She is very happy and wants to continue these doses. But, she then had a week of vaginal spotting in June 2025. She states it is a dark brown mucus discharge with streaks of red she also reports some mild cramping. She is using the HRT w/o issue; she has been compliant and not missed any doses. Patient states she also started spironolactone prior to her spotting episodes and is wondering if that a true be to do her spotting. [employer] SUPER[employer]OR US 07/01/25 showed an endometrial thickness of 4-5mm Review of Systems Constitutional: Constitutional: Denies chills, Denies fever(s) and Denies headache(s) Eyes: Eyes: Denies change in vision ENT: Denies dizziness and Denies headache(s) Cardiovascular: Cardiovascular: Denies chest pain and Denies dyspnea Respiratory: Respiratory: Denies cough and Denies dyspnea Gastrointestinal: Gastrointestinal: Denies abdominal pain and Denies change in stool character Genitourinary: Genitourinary: Reports abnormal vaginal bleeding, Reports pelvic pain, Denies vaginal discharge, Denies vaginal odor and Denies vaginal pruritus Neurologic: Denies dizziness and Denies headache(s) Psychiatric: Psychiatric: Denies anxiety and Denies depression [facility] Past Medical History Medical History Colon cancer screening Bloating IBS (irritable bowel syndrome) Slow transit constipation Asthma NENO (stress urinary incontinence, female) Surgical History Surgical History History of excision of mass 09/22/2022 - excision subcutaneous lipoma of the right upper quadrant of abdomen History of bladder surgery sling History of hysteroscopy S/P dilation and curettage Amenorrhea; benign pathology Family History Family History Father Hypertension Other Breast cancer Social History Social History Smoking status: Former smoker Tobacco type: cigarettes Additional smoking assessment comments: social smoking at 21y/o Alcohol intake: current Drinks per week: 1 Substance use: never Substance use type: does not use Do You Feel Safe in your Home?: Yes Lack of Transportation: No Lack of Food: Never True Current Housing: I Have Housing Concerned About Future Housing: No Difficulty Paying Gas/Electric Bills: No Difficulty Paying for Meds: No Currently Unemployed: No Education: Master's Degree or Higher Difficulty w/ Childcare or Family Care: No Living arrangements: with family Additional living arrangements comments: 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/Education: 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 Gender identity (if verbalized by the patient): Female Sexual Orientation (if Verbalized by the Patient): Straight or Heterosexual Spiritual care concerns: No Meds Home Medications and Allergies Home Medications ?Medication ?Instructions ?Recorded ?Confirmed ?Type multivitamin,jj-[id number] 1 tablet PO DAILY 09/23/20 07/07/25 History (Complete Multivitamin tablet) magnesium 250 mg tablet 250 mg PO DAILY PRN headaches 09/13/22 07/07/25 History cetirizine 10 mg tablet (24Hour 10 mg PO DAILY 02/20/25 07/07/25 History Allergy) estradiol 0.0375 mg/24 hr 1 patch transdermal 2XW #24 ea 05/21/25 07/07/25 Rx semiweekly transdermal patch (Sharlene) spironolactone 100 mg tablet 100 mg PO DAILY 06/25/25 07/07/25 History progesterone micronized 100 mg 200 mg (2 x 100 mg) PO QHS #90 caps 07/01/25 07/07/25 Rx capsule apple cider vinegar 250 mg 500 mg PO DAILY 07/07/25 07/07/25 History chewable tablet glucosamine-chondroitin 167 mg-133 2 cap PO DAILY 07/07/25 07/07/25 History mg capsule Allergies Allergy/AdvReac Type Severity Reaction Status Date / Time No Known Allergies Allergy Unknown Verified 07/07/25 12:29 Exam Const: General: cooperative, healthy appearing, comfortable and no acute distress Orientation/consciousness: patient oriented x3 Resp: Effort & Inspection: normal respiratory effort Cardio: Rate: regular rate GI: Inspection: normal to inspection GI Palp: No abdominal tenderness and Yes Soft to palpation : Other: deferred to OR Skin: General skin exam: normal color Neuro: General: patient oriented x3 Extrem: General: normal to inspection Psych: Appearance: grossly normal Affect: normal affect Attitude: cooperative Assessment and Plan Assessment and plan (1) Postmenopausal bleeding: Code(s): N95.0 - Postmenopausal bleeding Status: Acute (2) Hormone replacement therapy: Code(s): Z79.890 - Hormone replacement therapy Status: Acute Plan - Mildly thickened endometrium noted, but due to this being her second episode and HRT use, we recommend endometrial sampling - Proceed with hysteroscopy with D&C - Risks, benefits and alternatives discussed in detail
--- OUTSIDE RECORDS SUMMARY | 2025-07-13 01:33 | XMS_ITS | Data Portability ---
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 Lab urinalysis , complete 2024 025 [facility], [address] [facility] [address], [place], [address], 06:17:05 lipid panel, serum 2023 024 [facility], [address], [place], [address], 12:37:43 HbA1c (hemoglobi n A1c), blood 2023 [facility], [address], [place], [address], 12:37:47 rf (rheumatoi d factor), serum 2023 [facility], [address], [place], [address], 12:37:51 SANDRINE (antinucle ar antibodies ) screen, serum 2023 [facility], [address] [facility], [place], [address], 12:37:42 CMP, serum or plasma 2023 [facility], [address] [facility], [address], [place], [address], 12:37:46 unlisted lab - T4, free 2023 [facility], [address] [facility], [place], [address], 12:37:45 TSH, ultra-sens itive, serum 2023 [facility], [address], [place], [address], 12:37:49 T3, free, serum or plasma 2023 [facility], [address], [place], [address], 12:37:53 CBC w/ auto diff 2023 [facility], [address], [place], [address], 4 12:37:50 amylase + lipase, serum 2023 024 [facility], [address], [place], [address], 4 13:14:24 CMP, serum or plasma 2023 024 [facility], [address], [address], [place], [address], 4 13:14:21 CBC w/ auto diff 2023 024 [facility], [address] [facility] [address], [place], [address], 4 13:14:23 TSH, ultra-sens itive, serum 2023 024 [facility], [address] [facility] [address], [place], [address], 4 13:14:22 Referral None recorded. Procedures None recorded. Surgeries None recorded. Imaging XR, pelvis [address] [facility], [address], [place], [address], 5 22:00:16 XR, lumbar spine [address] [facility], [address], [place], [address], 21:58:31 Medication Orders None recorded. Patient TargetsNo targets recorded. Patient Instructions Encounter Date Encounter Id Patient Instructions Last Modified By Organization Details Last Modified Time 09/05/2024 [id number] A healthy lifestyle: care instructions [email or web address] Not available 09/05/2024 17:10:26 Reason for Referral None Reported. Results Created Date Observation Date Name Description Value Unit Range Abnormal Flag Note LastModifiedBy Organization Detail LastModifiedTime 09/10/19 24 09/11/2023 COMP. METAB OLIC PANEL (14) glucose - mg/dL Test not perfo rmed. Serum was in conta ct with cells when recei neri which will make the resul t inacc urate . Not Available [facility] ([facility]) [address] [place], [address], 09/11/2023 13:14:21 09/10/19 24 09/11/2023 COMP. METAB OLIC PANEL (14) BUN 8 mg/dL 6-24 Not Available [facility] ([facility]) [address] [place], [address], 09/11/2023 13:14:21 09/10/19 24 09/11/2023 COMP. METAB OLIC PANEL (14) creatinine 0.48 mg/dL 0.57-1 .00 below low normal Not Available [facility] ([facility]) [address] [place], [address], 09/11/2023 13:14:21 09/10/19 24 09/11/2023 COMP. METAB OLIC PANEL (14) eGFR 115 mL/mi n/1.7 3 >59 Not Available [facility] ([facility]) [address] [place], [address], 09/11/2023 13:14:21 09/10/19 24 09/11/2023 COMP. METAB OLIC PANEL (14) BUN/creatini ne ratio 17 9-23 Not Available [facility] ([facility]) [address] [place], [address], 09/11/2023 13:14:21 09/10/19 24 09/11/2023 COMP. METAB OLIC PANEL (14) sodium 140 mmol/ L 134-14 4 Not Available [facility] ([facility]) [address] [facility], [place], [address], 09/11/2023 13:14:21 09/10/19 24 09/11/2023 COMP. METAB OLIC PANEL (14) potassium - mmol/ L Test not perfo rmed. Serum was in conta ct with cells when recei neri which will make the resul t inacc urate . Not Available [facility] ([facility]) [address] [facility] [place], [address], 09/11/2023 13:14:21 09/10/19 24 09/11/2023 COMP. METAB OLIC PANEL (14) chloride 97 mmol/ L 96-106 Not Available [facility] ([facility]) [address] [facility], [place], [address], 09/11/2023 13:14:21 09/10/19 24 09/11/2023 COMP. METAB OLIC PANEL (14) carbon dioxide, total 24 mmol/ L 20-29 Not Available [facility] ([facility]) [address] [facility], [place], [address], 09/11/2023 13:14:09/10/19 24 09/11/2023 COMP. METAB OLIC PANEL (14) calcium 9.6 mg/dL 8.7-10 .2 Not Available [facility] ([facility]) [address] [facility] [place], [address], 09/11/2023 13:14:09/10/19 24 09/11/2023 COMP. METAB OLIC PANEL (14) protein, total 6.8 g/dL 6.0-8. 5 Not Available [facility] ([facility]) [address] [facility] [place], [address], 09/11/2023 13:14:21 09/10/19 24 09/11/2023 COMP. METAB OLIC PANEL (14) albumin 4.8 g/dL 3.9-4. 9 Not Available [facility] ([facility]) [address] [place], [address], 09/11/2023 13:14:21 09/10/19 24 09/11/2023 COMP. METAB OLIC PANEL (14) globulin, total 2.0 g/dL 1.5-4. 5 Not Available [facility] ([facility]) [address] [place], [address], 09/11/2023 13:14:21 09/10/19 24 09/11/2023 COMP. METAB OLIC PANEL (14) A/G ratio 2.4 1.2-2. 2 above high normal Not Available [facility] ([facility]) [address] [place], [address], 09/11/2023 13:14:21 09/10/19 24 09/11/2023 COMP. METAB OLIC PANEL (14) bilirubin, total 0.3 mg/dL 0.0-1. 2 Not Available [facility] ([facility]) [address] [place], [address], 09/11/2023 13:14:21 09/10/19 24 09/11/2023 COMP. METAB OLIC PANEL (14) alkaline phosphatase 65 IU/L 44-121 Not Available [facility] ([facility]) [address] [place], [address], 09/11/2023 13:14:21 09/10/19 24 09/11/2023 COMP. METAB OLIC PANEL (14) AST (SGOT) 19 IU/L 0-40 Not Available [facility] ([facility]) [address] [place], [address], 09/11/2023 13:14:21 09/10/19 24 09/11/2023 COMP. METAB OLIC PANEL (14) ALT (SGPT) 19 IU/L 0-32 Not Available [facility] ([facility]) [address] [place], [address], 09/11/2023 13:14:21 09/10/19 24 09/11/2023 TSH RFX ON ABNOR MAL TO FREE T4 TSH 1.020 uIU/m L 0.450- 4.500 Not Available [facility] ([facility]) [address] [facility], [place], [address], 09/11/2023 13:14:22 09/10/19 24 09/11/2023 CBC WITH DIFFE RENTI AL/PL ATELE T WBC 5.1 x10e3 /uL 3.4-10 .8 Not Available [facility] ([facility]) [address] [facility], [place], [address], 09/11/2023 13:14:23 09/10/19 24 09/11/2023 CBC WITH DIFFE RENTI AL/PL ATELE T RBC 4.17 x10e6 /uL 3.77-5 .28 Not Available [facility] ([facility]) [address] [facility], [place], [address], 09/11/2023 13:14:23 09/10/19 24 09/11/2023 CBC WITH DIFFE RENTI AL/PL ATELE T hemoglobin 13.2 g/dL 11.1-1 5.9 Not Available [facility] ([facility]) [address] [place], [address], 09/11/2023 13:14:23 09/10/19 24 09/11/2023 CBC WITH DIFFE RENTI AL/PL ATELE T hematocrit 39.3 % 34.0-4 6.6 Not Available [facility] ([facility]) [address] [place], [address], 09/11/2023 13:14:23 09/10/19 24 09/11/2023 CBC WITH DIFFE RENTI AL/PL ATELE T MCV 94 fL 79-97 Not Available [facility] ([facility]) [address] [place], [address], 09/11/2023 13:14:23 09/10/19 24 09/11/2023 CBC WITH DIFFE RENTI AL/PL ATELE T MCH 31.7 pg 26.6-3 3.0 Not Available [facility] ([facility]) [address] [facility], [place], [address], 09/11/2023 13:14:23 09/10/19 24 09/11/2023 CBC WITH DIFFE RENTI AL/PL ATELE T MCHC 33.6 g/dL 31.5-3 5.7 Not Available [facility] ([facility]) [address] [facility], [place], [address], 09/11/2023 13:14:23 09/10/19 24 09/11/2023 CBC WITH DIFFE RENTI AL/PL ATELE T RDW 12.4 % 11.7-1 5.4 Not Available [facility] ([facility]) [address] [facility], [place], [address], 09/11/2023 13:14:23 09/10/19 24 09/11/2023 CBC WITH DIFFE RENTI AL/PL ATELE T platelets 331 x10e3 /uL 150-45 0 Not Available [facility] ([facility]) [address] [place], [address], 09/11/2023 13:14:23 09/10/19 24 09/11/2023 CBC WITH DIFFE RENTI AL/PL ATELE T neutrophils 53 % notest ab. Not Available [facility] ([facility]) [address] [place], [address], 09/11/2023 13:14:23 09/10/19 24 09/11/2023 CBC WITH DIFFE RENTI AL/PL ATELE T lymphs 39 % notest ab. Not Available [facility] ([facility]) [address] [place], [address], 09/11/2023 13:14:23 09/10/19 24 09/11/2023 CBC WITH DIFFE RENTI AL/PL ATELE T monocytes 6 % notest ab. Not Available [facility] ([facility]) [address] [facility], [place], [address], 09/11/2023 13:14:23 09/10/19 24 09/11/2023 CBC WITH DIFFE RENTI AL/PL ATELE T eos 1 % notest ab. Not Available [facility] ([facility]) [address] [facility], [place], [address], 09/11/2023 13:14:23 09/10/19 24 09/11/2023 CBC WITH DIFFE RENTI AL/PL ATELE T basos 1 % notest ab. Not Available [facility] ([facility]) [address] [place], [address], 09/11/2023 13:14:23 09/10/19 24 09/11/2023 CBC WITH DIFFE RENTI AL/PL ATELE T neutrophils (absolute) 2.7 x10e3 /uL 1.4-7. 0 Not Available [facility] ([facility]) [address] [place], [address], 09/11/2023 13:14:23 09/10/19 24 09/11/2023 CBC WITH DIFFE RENTI AL/PL ATELE T lymphs (absolute) 2.0 x10e3 /uL 0.7-3. 1 Not Available [facility] ([facility]) [address] [place], [address], 09/11/2023 13:14:23 09/10/19 24 09/11/2023 CBC WITH DIFFE RENTI AL/PL ATELE T monocytes(ab solute) 0.3 x10e3 /uL 0.1-0. 9 Not Available [facility] ([facility]) [address] [place], [address], 09/11/2023 13:14:23 09/10/19 24 09/11/2023 CBC WITH DIFFE RENTI AL/PL ATELE T eos (absolute) 0.1 x10e3 /uL 0.0-0. 4 Not Available [facility] ([facility]) [address] [facility], [place], [address], 09/11/2023 13:14:23 09/10/19 24 09/11/2023 CBC WITH DIFFE RENTI AL/PL ATELE T baso (absolute) 0.1 x10e3 /uL 0.0-0. 2 Not Available [facility] ([facility]) [address] [facility], [place], [address], 09/11/2023 13:14:23 09/10/19 24 09/11/2023 CBC WITH DIFFE RENTI AL/PL ATELE T immature granulocytes 0 % notest ab. Not Available [facility] ([facility]) [address] [facility], [place], [address], 09/11/2023 13:14:23 09/10/19 24 09/11/2023 CBC WITH DIFFE RENTI AL/PL ATELE T immature grans (abs) 0.0 x10e3 /uL 0.0-0. 1 Not Available [facility] ([facility]) [address] [facility], [place], [address], 09/11/2023 13:14:23 09/10/19 24 09/11/2023 TEDDY+L IPASE amylase 58 U/L 31-110 Not Available [facility] ([facility]) [address] [facility] [place], [address], 09/11/2023 13:14:24 09/10/19 24 09/11/2023 TEDDY+L IPASE lipase 16 U/L 14-72 Not Available [facility] ([facility]) [address] [facility] [place], [address], 09/11/2023 13:14:24 07/03/2007/04/2024 SANDRINE SANDRINE direct NEGATI VE negati ve Not Available [facility] ([facility]) [address] [place], [address], 07/04/2024 12:37:42 07/03/2007/04/2024 LIPID PANEL cholesterol, total 192 mg/dL 100-19 9 Not Available [facility] ([facility]) [address] [place], [address], 07/04/2024 12:37:43 07/03/2007/04/2024 LIPID PANEL triglyceride s 99 mg/dL 0-149 Not Available [facility] ([facility]) [address] [place], [address], 07/04/2024 12:37:43 07/03/2007/04/2024 LIPID PANEL HDL cholesterol 72 mg/dL >39 Not Available [facility] ([facility]) [address] [place], [address], 07/04/2024 12:37:43 07/03/2007/04/2024 LIPID PANEL VLDL cholesterol feliberto 18 mg/dL 5-40 Not Available [facility] ([facility]) [address] [place], [address], 07/04/2024 12:37:43 07/03/2007/04/2024 LIPID PANEL LDL chol calc ([facility]) 102 mg/dL 0-99 above high normal Not Available [facility] ([facility]) [address] [place], [address], 07/04/2024 12:37:43 07/03/2007/04/2024 T4, FREE T4,free(dire ct) 1.28 NG/dL 0.82-1 .77 Not Available [facility] ([facility]) [address] [place], [address], 07/04/2024 12:37:45 07/03/20 24 07/04/2024 COMP. METAB OLIC PANEL (14) glucose 92 mg/dL 70-99 Not Available [facility] ([facility]) [address] [place], [address], 07/04/2024 12:37:46 07/03/20 24 07/04/2024 COMP. METAB OLIC PANEL (14) BUN 17 mg/dL 6-24 Not Available [facility] ([facility]) [address] [place], [address], 07/04/2024 12:37:46 07/03/2007/04/2024 COMP. METAB OLIC PANEL (14) creatinine 0.77 mg/dL 0.57-1 .00 Not Available [facility] ([facility]) [address] [place], [address], 07/04/2024 12:37:46 07/03/20 24 07/04/2024 COMP. METAB OLIC PANEL (14) eGFR 93 mL/mi n/1.7 3 >59 Not Available [facility] ([facility]) [address] [place], [address], 07/04/2024 12:37:46 07/03/20 24 07/04/2024 COMP. METAB OLIC PANEL (14) BUN/creatini ne ratio 22 9-23 Not Available [facility] ([facility]) [address] [place], [address], 07/04/2024 12:37:46 07/03/20 24 07/04/2024 COMP. METAB OLIC PANEL (14) sodium 140 mmol/ L 134-14 4 Not Available [facility] ([facility]) [address] [place], [address], 07/04/2024 12:37:46 07/03/20 24 07/04/2024 COMP. METAB OLIC PANEL (14) potassium 4.5 mmol/ L 3.5-5. 2 Not Available [facility] ([facility]) [address] [place], [address], 07/04/2024 12:37:46 07/03/20 24 07/04/2024 COMP. METAB OLIC PANEL (14) chloride 103 mmol/ L 96-106 Not Available [facility] ([facility]) [address] [place], [address], 07/04/2024 12:37:46 07/03/2007/04/2024 COMP. METAB OLIC PANEL (14) carbon dioxide, total 22 mmol/ L 20-29 Not Available [facility] ([facility]) [address] [place], [address], 07/04/2024 12:37:46 07/03/20 24 07/04/2024 COMP. METAB OLIC PANEL (14) calcium 9.3 mg/dL 8.7-10 .2 Not Available [facility] ([facility]) [address] [place], [address], 07/04/2024 12:37:46 07/03/20 24 07/04/2024 COMP. METAB OLIC PANEL (14) protein, total 7.4 g/dL 6.0-8. 5 Not Available [facility] ([facility]) [address] [facility] [place], [address], 07/04/2024 12:37:46 07/03/2007/04/2024 COMP. METAB OLIC PANEL (14) albumin 4.4 g/dL 3.8-4. 9 Not Available [facility] ([facility]) [address] [facility] [place], [address], 07/04/2024 12:37:46 07/03/20 24 07/04/2024 COMP. METAB OLIC PANEL (14) globulin, total 3.0 g/dL 1.5-4. 5 Not Available [facility] ([facility]) [address] [facility], [place], [address], 07/04/2024 12:37:46 07/03/2007/04/2024 COMP. METAB OLIC PANEL (14) bilirubin, total 0.3 mg/dL 0.0-1. 2 Not Available [facility] ([facility]) [address] [place], [address], 07/04/2024 12:37:46 07/03/2007/04/2024 COMP. METAB OLIC PANEL (14) alkaline phosphatase 79 IU/L 44-121 Not Available [facility]) [address] [place], [address], 07/04/2024 12:37:46 07/03/20 24 07/04/2024 COMP. METAB OLIC PANEL (14) AST (SGOT) 21 IU/L 0-40 Not Available [facility] ([facility]) [address] [place], [address], 07/04/2024 12:37:46 07/03/2007/04/2024 COMP. METAB OLIC PANEL (14) ALT (SGPT) 12 IU/L 0-32 Not Available [facility] ([facility]) [address] [place], [address], 07/04/2024 12:37:46 07/03/2007/04/2024 HEMOG LOBIN A1C hemoglobin A1C 5.3 % 4.8-5. 6 Predi abete s: 5.7 - 6.4 Diabe nadine: >6.4 Glyce radha contr ol for adult s with diabe nadine: <7.0 Not Available [facility] ([facility]) [address] [place], [address], 07/04/2024 12:37:47 07/03/2007/04/2024 TSH TSH 1.280 uIU/m L 0.450- 4.500 Not Available [facility] ([facility]) [address] [facility], [place], [address], 07/04/2024 12:37:48 07/03/2007/04/2024 CBC WITH DIFFE RENTI AL/PL ATELE T WBC 5.0 x10e3 /uL 3.4-10 .8 Not Available [facility] ([facility]) [address] [facility], [place], [address], 07/04/2024 12:37:50 07/03/2007/04/2024 CBC WITH DIFFE RENTI AL/PL ATELE T RBC 4.24 x10e6 /uL 3.77-5 .28 Not Available [facility] ([facility]) [address] [facility], [place], [address], 07/04/2024 12:37:50 07/03/2007/04/2024 CBC WITH DIFFE RENTI AL/PL ATELE T hemoglobin 13.6 g/dL 11.1-1 5.9 Not Available [facility] ([facility]) [address] [facility], [place], [address], 07/04/2024 12:37:50 07/03/2007/04/2024 CBC WITH DIFFE RENTI AL/PL ATELE T hematocrit 41.1 % 34.0-4 6.6 Not Available [facility] ([facility]) [address] [facility], [place], [address], 07/04/2024 12:37:50 07/03/2007/04/2024 CBC WITH DIFFE RENTI AL/PL ATELE T MCV 97 fL 79-97 Not Available [facility] ([facility]) [address] [facility], [place], [address], 07/04/2024 12:37:50 07/03/2007/04/2024 CBC WITH DIFFE RENTI AL/PL ATELE T MCH 32.1 pg 26.6-3 3.0 Not Available [facility] ([facility]) [address] [facility], [place], [address], 07/04/2024 12:37:50 07/03/2007/04/2024 CBC WITH DIFFE RENTI AL/PL ATELE T MCHC 33.1 g/dL 31.5-3 5.7 Not Available [facility] ([facility]) [address] [facility], [place], [address], 07/04/2024 12:37:50 07/03/20 24 07/04/2024 CBC WITH DIFFE RENTI AL/PL ATELE T RDW 12.3 % 11.7-1 5.4 Not Available [facility] ([facility]) [address] [facility], [place], [address], 07/04/2024 12:37:50 07/03/20 24 07/04/2024 CBC WITH DIFFE RENTI AL/PL ATELE T platelets 351 x10e3 /uL 150-45 0 Not Available [facility] ([facility]) [address] [facility], [place], [address], 07/04/2024 12:37:50 07/03/20 24 07/04/2024 CBC WITH DIFFE RENTI AL/PL ATELE T neutrophils 50 % notest ab. Not Available [facility] ([facility]) [address] [place], [address], 07/04/2024 12:37:50 07/03/20 24 07/04/2024 CBC WITH DIFFE RENTI AL/PL ATELE T lymphs 39 % notest ab. Not Available [facility] ([facility]) [address] [place], [address], 07/04/2024 12:37:50 07/03/20 24 07/04/2024 CBC WITH DIFFE RENTI AL/PL ATELE T monocytes 8 % notest ab. Not Available [facility] ([facility]) [address] [place], [address], 07/04/2024 12:37:50 07/03/2007/04/2024 CBC WITH DIFFE RENTI AL/PL ATELE T eos 2 % notest ab. Not Available [facility] ([facility]) [address] [facility], [place], [address], 07/04/2024 12:37:50 07/03/2007/04/2024 CBC WITH DIFFE RENTI AL/PL ATELE T basos 1 % notest ab. Not Available [facility] ([facility]) [address] [facility], [place], [address], 07/04/2024 12:37:50 07/03/2007/04/2024 CBC WITH DIFFE RENTI AL/PL ATELE T neutrophils (absolute) 2.5 x10e3 /uL 1.4-7. 0 Not Available [facility] ([facility]) [address] [facility], [place], [address], 07/04/2024 12:37:50 07/03/2007/04/2024 CBC WITH DIFFE RENTI AL/PL ATELE T lymphs (absolute) 2.0 x10e3 /uL 0.7-3. 1 Not Available [facility] ([facility]) [address] [facility], [place], [address], 07/04/2024 12:37:50 07/03/20 24 07/04/2024 CBC WITH DIFFE RENTI AL/PL ATELE T monocytes(ab solute) 0.4 x10e3 /uL 0.1-0. 9 Not Available [facility] ([facility]) [address] [facility], [place], [address], 07/04/2024 12:37:50 07/03/20 24 07/04/2024 CBC WITH DIFFE RENTI AL/PL ATELE T eos (absolute) 0.1 x10e3 /uL 0.0-0. 4 Not Available [facility] ([facility]) [address] [facility], [place], [address], 07/04/2024 12:37:50 07/03/2007/04/2024 CBC WITH DIFFE RENTI AL/PL ATELE T baso (absolute) 0.1 x10e3 /uL 0.0-0. 2 Not Available [facility] ([facility]) [address] [facility], [place], [address], 07/04/2024 12:37:50 07/03/2007/04/2024 CBC WITH DIFFE RENTI AL/PL ATELE T immature granulocytes 0 % notest ab. Not Available [facility] ([facility]) [address] [facility], [place], [address], 07/04/2024 12:37:50 07/03/2007/04/2024 CBC WITH DIFFE RENTI AL/PL ATELE T immature grans (abs) 0.0 x10e3 /uL 0.0-0. 1 Not Available [facility] ([facility]) [address] [facility], [place], [address], 07/04/2024 12:37:50 07/03/20 24 07/04/2024 RHEUM ATOID FACTO R (RF) rheumatoid factor (rf) <10.0 IU/mL <14.0 Not Available [facility]) [address] [facility], [place], [address], 07/04/2024 12:37:51 07/03/2007/04/2024 TRIIO DOTHY MARILYNN E (T3), FREE triiodothyro nine (T3), free 2.9 pg/mL 2.0-4. 4 Not Available [facility] ([facility]) [address] [facility], [place], [address], 07/04/2024 12:37:52 09/05/19 25 09/06/2024 URINA LYSIS (NO MICRO ) WAIVE D specific gravity 1.017 1.005- 1.030 Not Available [facility] ([facility]) [address] [place], [address], 09/06/2024 06:17:05 09/05/19 25 09/06/2024 URINA LYSIS (NO MICRO ) WAIVE D pH 6.5 5.0-7. 5 Not Available [facility] ([facility]) [address] [place], [address], 09/06/2024 06:17:05 09/05/19 25 09/06/2024 URINA LYSIS (NO MICRO ) WAIVE D urine-color YELLOW yellow Not Available [facility] ([facility]) [address] [place], [address], 09/06/2024 06:17:05 09/05/1909/06/2024 URINA LYSIS (NO MICRO ) WAIVE D appearance CLEAR clear Not Available [facility] ([facility]) [address] [place], [address], 09/06/2024 06:17:05 09/05/1909/06/2024 URINA LYSIS (NO MICRO ) WAIVE D WBC esterase NEGATI VE negati ve Not Available [facility] ([facility]) [address] [place], [address], 09/06/2024 06:17:05 09/05/1909/06/2024 URINA LYSIS (NO MICRO ) WAIVE D protein NEGATI VE negati ve/tra ce Not Available [facility] ([facility]) [address] [place], [address], 09/06/2024 06:17:05 09/05/1909/06/2024 URINA LYSIS (NO MICRO ) WAIVE D glucose NEGATI VE negati ve Not Available [facility] ([facility]) [address] [place], [address], 09/06/2024 06:17:05 09/05/19 25 09/06/2024 URINA LYSIS (NO MICRO ) WAIVE D ketones NEGATI VE negati ve Not Available [facility] ([facility]) [address] [facility], [place], [address], 09/06/2024 06:17:05 09/05/19 25 09/06/2024 URINA LYSIS (NO MICRO ) WAIVE D occult blood NEGATI VE negati ve Not Available [facility] ([facility]) [address] [place], [address], 09/06/2024 06:17:05 09/05/19 25 09/06/2024 URINA LYSIS (NO MICRO ) WAIVE D bilirubin NEGATI VE negati ve Not Available [facility] [facility] [address] [place], [address], 09/06/2024 06:17:05 09/05/19 25 09/06/2024 URINA LYSIS (NO MICRO ) WAIVE D urobilinogen ,semi-qn 0.2 mg/dL 0.2-1. 0 Not Available [facility] ([facility]) [address] [facility], [place], [address], 09/06/2024 06:17:05 09/05/19 25 09/06/2024 URINA LYSIS (NO MICRO ) WAIVE D nitrite, urine NEGATI VE negati ve Not Available [facility] ([facility]) [address] [place], [address], 09/06/2024 06:17:05 09/07/19 24 09/06/2023 XR, abdom en + pelvi s No observ ation record ed. [email or web address] [facility] [address] [facility] [place], [place], [address], 09/10/2023 10:03:37 05/15/20 24 05/14/2024 US, pelvi s No observ [facility] [address], [place], [address], 05/27/2024 17:16:26 06/18/20 24 11/28/2023 MAMMO , scree gadiel, digit al, bilat eral No observ ation record ed. liana Not Available 2023 11:36:36 06/20/20 24 04/05/2022 colon oscop y scree gadiel (PROC ) No observ ation record ed. liana Roblero MD [address] [place], [address], 06/23/2024 13:10:23 09/05/19 25 09/05/2024 XR, lumba r spine No observ ation record ed. [facility] [address], [place], [address], 09/10/2024 21:52:36 09/05/19 25 09/05/2024 XR, pelvi s No observ ation record ed. [facility] [address], [place], [address], 09/10/2024 21:52:36 09/06/19 25 09/05/2024 XR, lumba r spine No observ ation record ed. [facility] [address], [place], [address], 09/10/2024 21:52:37 11/29/19 25 11/28/2024 MAMMO , scree gadiel, digit al, bilat eral No observ ation record ed. [facility] [address] [facility] [address], [place], [address], 12/01/2024 10:58:56 Result Notes None recorded. Problems Name Problem SNOMED Code Status Onset Date Resolution Date Notes Provider Name and Address Organization Details Recorded Time Fatigue 87910567 Active 2023 LILY Onofre, [place] - [facility] 15:17:22 Pain of joint 44020739 Active 2023 Alvaro Kelley MA null, [facility] 4 15:17:23 Screening for cardiovascular system disease Active 2023 Alvaro Kelley MA null, [facility] 4 15:17:24 Diabetes mellitus screening Active 2023 Alvaro Kelley MA null, [facility] 15:17:25 Problem Notes None recorded. Medical Equipment None Reported. [...] zole 800 mg-trimethop rim 160 mg tablet Take 1 tablet twice a day by oral route with meals for 7 days. 06/12 completed Not Available Not Available [...] in Arterial blood by Pulse oximetry Systolic And Diastolic Provider Name and Address Organization Details Last Updated DateTime 5 171.45 cm 29.8 kg/m2 99242.4 1 g 65 /min 99 % 99 % 126/68 mm[Hg] Alfreda Skinner MA [place] - [facility] 5 15:25:07 Date Recorded Body height Body mass index (BMI) Body weight Heart rate Oxygen saturation Oxygen saturation in Arterial blood by Pulse oximetry Systolic And Diastolic Provider Name and Address Organization Details Last Updated DateTime 171.45 cm 28.8 kg/m2 60062.4 1 g 64 /min 97 % 97 % 130/70 mm[Hg] Alfreda LILY Skinner [facility] 14:20:05 Social History Question Answer Notes LastModified by Organizat ion Details LastModified Time Tobacco Smoking Status Never Smoker Alfreda LILY Skinner null, [facility] 06/12/2024 14:12:56 Do You Have An Advance Directive? Yes Information n ot available 06/12/2024 Are You Blind Or Do You Have Difficulty Seeing? No Information n ot available 06/12/2024 What Is Your Level Of Caffeine Consumption? Occasional Information not available 06/12/2024 In The 14 Days Before Symptom Onset, Have You Had Close Contact With A Laboratory-confirm ed COVID-19 While That Case Was Ill? No Information n ot available 06/12/2024 In The 14 Days Before Symptom Onset, Have You Had Close Contact With A Person Who Is Under Investigation For COVID-19 While That Person Was Ill? No Information not available 06/12/2024 Have You Been To An Area Known To Be High Risk For COVID-19? No Information not available 06/12/2024 Are You Deaf Or Do You Have Serious Difficulty Hearing? No Information not available 06/12/2024 What Type Of Diet Are You Following? REGULAR Information n ot available 06/12/2024 Are There Any Guns Present [...] Yes Information not available 06/12/2024 Do You Use Sunscreen Routinely? Yes Information not available 06/12/2024 Has Tobacco Cessation Counseling Been Provided? No Information not available 06/12/2024 Sex: Female Functional Status Question Answer Note LastModified by OrganizPRX Details LastModified Time Do you use any illicit or recreational drugs? No Information not available 06/12/2024 Do you or have you ever used any other forms of tobacco or nicotine? No Information not available 06/12/2024 What is your level of alcohol consumption? Moderate Information not available 06/12/2024 Are you currently employed? Yes Information not available 06/12/2024 Are you able to care for yourself independently? 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 None Information not available 06/12/2024 Mental Status Question Answer Note LastModified by Organizat Tabber Details LastModified Time Do you feel stressed (tense, restless, nervous, or anxious, or unable to sleep at night)? TV15982-9 Sleeping issues Information not available 06/12/2024 Family History Relationship Description Onset Age of this Age Resolved Age Notes LastModified by Organization Details LastModified Time Father Harmful pattern of use of alcohol mebyma Not available 2023 14:11:22 Father Cerebrovascu lar disease mebyma Not available 06/03 14:11:45 Father Dementia mebyma Not available 1 14:11:55 Father Depressive disorder mebyma Not available 2023 14:12:18 Brother Attention deficit hyperactivit y disorder mebyma Not available 06/12 14:11:28 Brother Depressive disorder mebyma Not available 2023 14:12:18 Mother Malignant neoplasm of breast mebyma Not available 2023 14:11:36 [...] PF 05/28/2023 completed MEHRDAD Nunez NP Att[place]: [place], [address], [place] - [facility] 07/02/2023 10:46:53 Past Encounters Encounter ID Performer Location Encounter Start Date Encounter Closed Date Diagnosis/Indication Diagnosis SNOMED-CT Code Diagnosis ICD10 Code Diagnosis IMO Codes Diagnosis Note [id number] Jimmy Farr MD [facility] [address] [place] [address] 06/19/2023 15:32:41 07/03/2023 10:56:05 Active or passive immunization 789340160 Z23 [id number] MEHRDAD Nunez NP [facility] [address] [place] [address] 09/10/2023 15:37:25 09/10/2023 15:40:32 Abdominal bloating 303974536 R14.0 [id number] Orly Roblero MD [facility] [place] [address] [place] [address] 06/12/2024 13:49:43 06/12/2024 15:17:31 Fatigue 72849381 R53.83 Pain of joint 85624789 M 25.50 Screening for cardiovascular system disease 442603905 Z13.6 Diabetes m ellitus screening 161850461 Z13.1 [id number] Orly Roblero MD [facility] ([facility]) [facility] [place] [address] 09/05/2024 15:15:57 09/05/2024 16:14:21 Body mass index 25-29 - overweight 869344117 Z68.29 Overweight 413970606 E66 .3 Low back pain 602283352 M54.50 Contusion of right buttock 7812454773 7109 S30.0XXA Health Concerns Section Related Observation LastModified by Organization Detai ls LastModified Time None Recorded Concern Status LastModified by Organization Details LastModified Time None Recorded Advance Directives Directive Y: Payers Insurance Date Sequence Insurance Name Policy Number Policy Pino Covered Member ID Pino Member ID Guarantor Name 10/27/2024 1 [facility] [id number] Taryn S Bahena [id number] Taryn Bahena 10/27/2024 2 [facility] [id number] Arsh Bahena [id number] Taryn Bahena 05/20/2025 PAYMENT PLAN Taryn Bahena 10/27/2024 1 [facility] [id number] Taryn S Bahena [id number] Taryn Bahena Notes Date Note Type Note Provider Name and Address Organization Details Recorded Time 06/12/2024 text/html overall doing pretty good she has had some joint pain fatigue insomnia night sweats perimenopausal and menopausal symptoms Orly Roblero MD Attn: [address] [place], [address], [facility] 06/14/2024 18:20:03 09/05/2024 text/html carrying laundry down [...] injuries Orly Roblero MD Attn: [address] [place], [address], [facility] - [facility] 09/05/2024 22:55:16 OBGyn Episode No OBEpisode recorded.
--- OUTSIDE RECORDS SUMMARY | 2025-07-13 01:33 | XMS_ITS | Clinical Summary ---
Author Organization [facility] Address [address] [facility] Attn: Epic Prelude ADT [place] [address] Care Team Providers Care Sider Mechanic Name Role Phone Unavailable Primary Care Provider Unavailabl e Allergies No known active allergies Medications albuterol sulfate 90 mcg/Actuation inhaler Inhale 2 puffs every 4 hours by mouth as needed. 25.5 Gram 1 2 5:29 PM CDT 03/02/20 22 Active PEG-Electroly te Soln (NULYTELY) 420 g Recon Soln DRINK 1/2 OF PREP AT 5:00 P.M. THE EVENING OF APRIL 2 AND DRINK THE OTHER 1/2 OF PREP AT 5:00 A.M. THE MORNING OF APRIL 3. 4000 mL 2 4:21 PM CDT 03/28/20 22 Active traMADoL (ULTRAM) 50 mg tablet Take 1 Tablet (50 mg) by mouth every 6 hours as needed FOR PAIN. 6 Tablet 09/22/19 23 Active hydrocortison e (HYTONE) 2.5 % Ointment Apply to affected area on face twice daily for 2 weeks. 28.35 Gram 3 2:28 PM CDT 03/07/20 23 Active ondansetron (ZOFRAN ODT) 4 mg Tablet, Rapid Dissolve Dissolve 1 Tablet (4 mg) by mouth every 8 hours as needed for nausea and vomiting. 15 Tablet 3 5:41 PM YARD COUPLER 07/19/20 23 Active spironolacton e (ALDACTONE) 50 mg tablet TAKE 1 TABLET BY MOUTH ONCE DAILY FOR 2 WEEKS, THEN INCREASE TO 2 TABLETS ONCE DAILY THEREAFTER 60 Tablet 2 4 3:02 PM CDT 09/17/19 24 Active spironolacton e (ALDACTONE) 50 mg tablet Take one tablet for two weeks daily, then increase to two tablets daily. 60 Tablet 2 4 2:35 PM CDT 01/31/20 24 Active spironolacton e (ALDACTONE) 100 mg tablet Take 1 Tablet (100 mg) by mouth daily. 90 Tablet 1 4 6:46 PM CDT 03/07/20 24 Active clobetasoL (TEMOVATE) 0.05 % Ointment Apply topically 2 times daily for 2 weeks for vulvar pruritis. 60 Gram 4 4 5:37 PM CDT 04/01/20 24 Active phenazopyridi ne 100 mg tablet Take 2 tablets by mouth three times daily for 2 days. Take with food. 12 Tablet 4 5:37 PM CDT 04/10/20 24 Active spironolacton e (ALDACTONE) 100 mg tablet Take 1 Tablet (100 mg) by mouth daily. 90 Tablet 3 04/14/20 24 Active mupirocin (BACTROBAN) 2 % Ointment APPLY TO THE AFFECTED AREA TWICE DAILY FOR 7 DAYS. 22 Gram 5 4:14 PM CDT 02/21/20 25 Active estradioL (VIVELLE-DOT) 0.0375 mg/24 hr patch APPLY 1 PATCH TRANSDERMALLY TWICE A WEEK; APPLY 1 PATCH FOR 3 DAYS ALTERNATING WITH 1 PATCH FOR 4 DAYS EACH WEEK. 24 Patch 4 5 3:46 PM CDT 05/21/20 25 Active spironolacton e (ALDACTONE) 100 mg tablet Take 1 tablet (100mg) by mouth once daily 90 Tablet 3 5 3:44 PM CDT 05/22/20 25 Active fluconazole (DIFLUCAN) 150 mg tablet Take 1 tablet by mouth once. Can repeat in 3 days if needed. 2 Tablet 5 3:00 PM CDT 06/25/20 25 Active progesterone micronized (PROMETRIUM) 100 mg Capsule Take 2 Capsules (200 mg) by mouth daily at bedtime. 90 Capsule 4 5 3:44 PM CDT 07/01/20 25 Active progesterone micronized (PROMETRIUM) 100 mg Capsule Take 1 Capsule (100 mg) by mouth daily at bedtime. 90 Capsule 4 5 4:59 PM CDT 05/21/20 25 025 Discontinued amoxicillin-c lavulanate (AUGMENTIN) 875-125 mg tablet Take 1 Tablet by mouth every 12 hours for 7 days. 14 Tablet 3:00 PM CDT 06/25/20 25 025 Encounters Date Type Department Care Team Description 07/07/2025 External Device Data [facility] ABSTRACTION Provider, Abstract 07/01/2025 External Device Data [facility] ABSTRACTION Provider, Abstract 06/30/2025 External Device Data [facility] ABSTRACTION Provider, Abstract 05/20/2025 External Device Data [facility] ABSTRACTION Provider, Abstract from Last 3 Months Social History Tobacco Use Types Packs/Day Years [...] (1 of 3 - 19+ 3-dose series) 11/02 HPV/Cotest (21-29) 1993 CERVICAL CANCER SCREENING 2002 HPV/Cotest (30-65) 2002 PAP SMEAR 2002 BREAST CANCER SCREENING 2012 COLORECTAL SCREENING 2017 Colorectal Cancer Screening 2017 FIT-DNA Q 3 years 2017 FIT/FOBT Q 1 year 2017 Flex Sig/CT Colonography Q 5 years 2017 ZOSTER VACCINE (1 of 2) 2022 INFLUENZA VACCINE (#1) 2025 Insurance RX [employer] (INTERNAL) [facility] RX [employer] Member Subscriber Plan / Payer (Ef fective 2025-Present) Name:Taryn Bahena Relation to Subscriber:Self Name:Taryn Bahena Subscriber ID:Not on file Payer ID:Not on file Type:RX Commercial Address: [place] RX [employer] RX Member Subscriber Plan / Payer (Ef fective for All Dates) Name:Taryn Bahena Relation to Subscriber:Self Name:Taryn Bahena Payer ID:Not on file Group ID:[id number] Type:RX Commercial Address: [place]
--- OUTSIDE RECORDS SUMMARY | 2025-07-13 01:33 | XMS_ITS | Clinical Summary ---
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 Gender Identity Not on file Sexual Orientation [...] Screening with HPV 2002 Mammogram Screening 2012 Pneumococcal Vaccine: 50+ Ye ars (1 of 1 - PCV) 2022 Zoster Vaccines (1 of 2) 2022 COVID-19 Vaccine (2024-2 6 season) 2025 Influenza Adult (#1) 2025 Hepatitis A Vaccines Aged Out No long er eligible based on patient's age to complete this topic Meningococcal B Vaccine Aged Out No l onger eligible based on patient's age to complete this topic Meningococcal Vaccine Aged Out No johanne joyce eligible based on patient's age to complete this topic RSV Immunizations Under 20 Months Aged Out No longer eligible based on patient's age to complete this topic Insurance [facility] Care Teams Junior Recruiter Relationship Specialty Start Date End Date Ab Roblero MD PCP - General INTERNAL MEDICINE 08/12/20
--- OUTSIDE RECORDS SUMMARY | 2025-07-13 01:33 | XMS_ITS | Data Portability ---
Author Organization [place] [facility], Main Office Address [address] [place] [address] Assessment Encounter Date Assessment Date Assessment LastModified by Organization Details LastModified Time 04/02/2023 04/02/2023 Blood work healthy lifestyle choices six-month follow-up [email or web address] Not available 04/02/2023 22:09:16 Plan of Treatment [...] 139 mmol/ L 137-14 5 Not Available [facility] (Lab) [address] [place], [address], 03/02/2022 20:48:05 03/02/20 22 03/02/2022 COMPR EHENS RK METAB OLIC PANEL potassium 4.8 mmol/ L 3.5-5. 1 Not Available [facility] (Lab) [address] [place], [address], 03/02/2022 20:48:05 03/02/20 22 03/02/2022 COMPR EHENS RK METAB OLIC PANEL chloride 102 mmol/ L 98-107 Not Available [facility] (Lab) [address] [place], [address], 03/02/2022 20:48:05 03/02/20 22 03/02/2022 COMPR EHENS RK METAB OLIC PANEL carbon dioxide 31 mmol/ L 22-30 high Not Available [facility] (Lab) [address] [place], [address], 03/02/2022 20:48:05 03/02/20 22 03/02/2022 COMPR EHENS RK METAB OLIC PANEL anion gap 10.8 mmol/ L 14-22 low Not Available [facility] (Lab) [address] [place], [address], 03/02/2022 20:48:05 03/02/20 22 03/02/2022 COMPR EHENS RK METAB OLIC PANEL glucose 89 mg/dL 70-99 Not Available [facility] (Lab) [address] [place], [address], 03/02/2022 20:48:05 03/02/20 22 03/02/2022 COMPR EHENS RK METAB OLIC PANEL BUN 14 mg/dL 8-19 Not Available [facility] (Lab) [address] [place], [address], 03/02/2022 20:48:05 03/02/20 22 03/02/2022 COMPR EHENS RK METAB OLIC PANEL creatinine 0.70 mg/dL 0.66-1 .25 Not Available [facility] (Lab) [address] [place], [address], 03/02/2022 20:48:05 03/02/20 22 03/02/2022 COMPR EHENS RK METAB OLIC PANEL GFR >60 Refer ence Range : Eakly ge GFR Healt hy Adult : >60 [...] or ethni c subgr oups, such as Hismo nics. Outsi de the valid ated raina [...] able on the F websi te: https ://finesse w.kid soledad.o rg/pr ofess ional s/kdo qi/gf r_cal culat or Not Available [facility] (Lab) [address] [place], [address], 03/02/2022 20:48:05 03/02/20 22 03/02/2022 COMPR EHENS RK METAB OLIC PANEL alkaline phosphatase 63 U/L 38-126 Not Available [facility] (Lab) [address] [place], [address], 03/02/2022 20:48:05 03/02/20 22 03/02/2022 COMPR EHENS RK METAB OLIC PANEL alanine aminotransfe rase 18 U/L 0-35 Not Available [facility] (Lab) [address] [place], [address], 03/02/2022 20:48:05 03/02/20 22 03/02/2022 COMPR EHENS RK METAB OLIC PANEL aspartate aminotransfe rase 23 U/L 15-37 Not Available [facility] (Lab) [address] [place], [address], 03/02/2022 20:48:05 03/02/20 22 03/02/2022 COMPR EHENS RK METAB OLIC PANEL bilirubin, total 0.30 mg/dL 0.20-1 .30 Not Available [facility] (Lab) [address] [place], [address], 03/02/2022 20:48:05 03/02/20 22 03/02/2022 COMPR EHENS RK METAB OLIC PANEL calcium 9.7 mg/dL 8.4-10 .2 Not Available [facility] (Lab) [address] [place], [address], 03/02/2022 20:48:05 03/02/20 22 03/02/2022 COMPR EHENS RK METAB OLIC PANEL total protein 7.9 g/dL 6.3-8. 2 Not Available [facility] (Lab) [address] [place], [address], 03/02/2022 20:48:05 03/02/20 22 03/02/2022 COMPR EHENS RK METAB OLIC PANEL albumin 4.7 g/dL 3.4-5. 0 Not Available [facility] (Lab) [address] [place], [address], 03/02/2022 20:48:05 03/02/20 22 03/02/2022 COMPR EHENS RK METAB OLIC PANEL globulin 3.2 g/dL 2.6-4. 2 Not Available [facility] (Lab) [address] [place], [address], 03/02/2022 20:48:05 03/02/20 22 03/02/2022 COMPR EHENS RK METAB OLIC PANEL A/G ratio 1.5 ratio 1.0-2. 0 Not Available [facility] (Lab) [address] [place], [address], 03/02/2022 20:48:05 03/02/20 22 03/02/2022 LIPID PANEL cholesterol 228 mg/dL 140-19 9 high NIH MAYELIN NSUS RECOM MENDA TION FOR NORAH STERO L: ADULT CHILD LOW RISK: <200 <170 BORDE RLINE : <200- 239 ----- HIGH RISK: >240 >200 Not Available [facility] (Lab) [address] [place], [address], 03/02/2022 18:45:39 03/02/20 22 03/02/2022 LIPID PANEL triglyceride s 105 mg/dL 0-150 NIH MAYELIN NSUS REPOR T RECOM MENDA TION FOR TRIGL YCERI JAZZ: ADULT CHILD LOW RISK: <150 ----- BODER LINE: 150-1 99 ----- HIGH RISK: >200 ----- Not Available [facility] (Lab) [address] [place], [address], 03/02/2022 18:45:39 03/02/20 22 03/02/2022 LIPID PANEL HDL cholesterol 81 mg/dL 40- Not Available [facility] (Lab) [address] [place], [address], 03/02/2022 18:45:39 03/02/20 22 03/02/2022 LIPID PANEL LDL cholesterol, calculated 126 mg/dL 0-130 NIH MAYELIN NSUS REPOR T RECOM MENDA TIONS FOR LDL: ADULT CHILD LOW RISK <130 <110 (OPTI MAL LDL) <100 ----- BORDE RLINE : 130-1 59 ----- HIGH RISK: >160 >130 A TRIGL YCERI DE RESUL T >400 INVAL IDATE S THE CALCU LATIO N FOR LDL FRACT IONAT ION - THE LDL RESUL T WILL NOT BE REPOR ANDIE. Not Available [facility] (Lab) [address] [place], [address], 03/02/2022 18:45:39 03/02/20 22 03/02/2022 CBC/C OMPLE TE BLD COUNT W/DIF F white blood cells 6.5 x10'3 /uL 4.2-10 .8 Not Available [facility] (Lab) [address] [place], [address], 03/02/2022 18:42:31 03/02/20 22 03/02/2022 CBC/C OMPLE TE BLD COUNT W/DIF F red blood cells 4.26 x10'6 /uL 3.80-5 .20 Not Available [facility] (Lab) [address] [place], [address], 03/02/2022 18:42:31 03/02/20 22 03/02/2022 CBC/C OMPLE TE BLD COUNT W/DIF F hemoglobin 13.7 g/dL 12.0-1 5.6 Not Available [facility] (Lab) [address] [place], [address], 03/02/2022 18:42:31 03/02/20 22 03/02/2022 CBC/C OMPLE TE BLD COUNT W/DIF F hematocrit 41.1 % 35.7-4 5.7 Not Available [facility] (Lab) [address] [place], [address], 03/02/2022 18:42:31 03/02/20 22 03/02/2022 CBC/C OMPLE TE BLD COUNT W/DIF F mean red cell volume 96.5 fL 82.0-9 9.0 Not Available [facility] (Lab) [address] [place], [address], 03/02/2022 18:42:31 03/02/20 22 03/02/2022 CBC/C OMPLE TE BLD COUNT W/DIF F mean red cell hemoglobin 32.2 pg 27.0-3 3.0 Not Available [facility] (Lab) [address] [place], [address], 03/02/2022 18:42:31 03/02/20 22 03/02/2022 CBC/C OMPLE TE BLD COUNT W/DIF F mean RBC HGB concentratio n 33.3 g/dL 31.0-3 6.0 Not Available [facility] (Lab) [address] [place], [address], 03/02/2022 18:42:31 03/02/20 22 03/02/2022 CBC/C OMPLE TE BLD COUNT W/DIF F red cell distribution width 12.3 % 11.8-1 5.5 Not Available [facility] (Lab) [address] [place], [address], 03/02/2022 18:42:31 03/02/20 22 03/02/2022 CBC/C OMPLE TE BLD COUNT W/DIF F platelets 333 x10'3 /uL 150-40 0 Not Available [facility] (Lab) [address] [place], [address], 03/02/2022 18:42:31 03/02/20 22 03/02/2022 CBC/C OMPLE TE BLD COUNT W/DIF F mean platelet volume 9.5 fL 9.0-12 .4 Not Available [facility] (Lab) [address] [place], [address], 03/02/2022 18:42:31 03/02/20 22 03/02/2022 CBC/C OMPLE TE BLD COUNT W/DIF F neutrophils 58.9 % 39.0-7 2.0 Not Available [facility] (Lab) [address] [place], [address], 03/02/2022 18:42:31 03/02/20 22 03/02/2022 CBC/C OMPLE TE BLD COUNT W/DIF F lymphocytes 31.7 % 16.0-4 7.0 Not Available [facility] (Lab) [address] [place], [address], 03/02/2022 18:42:31 03/02/20 22 03/02/2022 CBC/C OMPLE TE BLD COUNT W/DIF F monocytes 6.6 % 5.0-12 .0 Not Available [facility] (Lab) [address] [place], [address], 03/02/2022 18:42:31 03/02/20 22 03/02/2022 CBC/C OMPLE TE BLD COUNT W/DIF F eosinophils 1.7 % 1.0-7. 0 Not Available [facility] (Lab) [address] [place], [address], 03/02/2022 18:42:31 03/02/20 22 03/02/2022 CBC/C OMPLE TE BLD COUNT W/DIF F basophils 0.8 % 0.0-2. 0 Not Available [facility] (Lab) [address] [place], [address], 03/02/2022 18:42:31 03/02/20 22 03/02/2022 CBC/C OMPLE TE BLD COUNT W/DIF F immature granulocytes 0.3 % 0.00-0 .50 Not Available [facility] (Lab) [address] [place], [address], 03/02/2022 18:42:31 03/02/20 22 03/02/2022 CBC/C OMPLE TE BLD COUNT W/DIF F neutrophils, absolute count 3.82 x10'3 /uL 1.5-8. 0 Not Available [facility] (Lab) [address] [place], [address], 03/02/2022 18:42:31 03/02/20 22 03/02/2022 CBC/C OMPLE TE BLD COUNT W/DIF F lymphocytes, absolute count 2.06 x10'3 /uL 1.07-3 .43 Not Available [facility] (Lab) [address] [place], [address], 03/02/2022 18:42:31 03/02/20 22 03/02/2022 CBC/C OMPLE TE BLD COUNT W/DIF F monocytes, absolute count 0.43 x10'3 /uL 0.29-0 .99 Not Available [facility] (Lab) [address] [place], [address], 03/02/2022 18:42:31 03/02/20 22 03/02/2022 CBC/C OMPLE TE BLD COUNT W/DIF F eosinophils, absolute count 0.11 x10'3 /uL 0.02-0 .53 Not Available [facility] (Lab) [address] [place], [address], 03/02/2022 18:42:31 03/02/20 22 03/02/2022 CBC/C OMPLE TE BLD COUNT W/DIF F basophils, absolute count 0.05 x10'3 /uL 0.01-0 .08 Not Available [facility] (Lab) [address] [place], [address], 03/02/2022 18:42:31 03/02/20 22 03/02/2022 CBC/C OMPLE TE BLD COUNT W/DIF F immature granulocytes ,absolute 0.02 x10'3 /uL 0.00-0 .05 Not Available [facility] (Lab) [address] [place], [address], 03/02/2022 18:42:31 03/02/20 22 03/02/2022 CBC/C OMPLE TE BLD COUNT W/DIF F nucleated red blood cells 0.0 % -0 Not Available [facility] (Lab) [address] [place], [address], 03/02/2022 18:42:31 03/02/20 22 03/02/2022 CBC/C OMPLE TE BLD COUNT W/DIF F NRBC# 0.00 x10'3 /uL Not Available [facility] (Lab) [address] [place], [address], 03/02/2022 18:42:31 03/25/20 22 03/25/2022 CT, abdom en + pelvi s, w/ contr ast [facility] [address] [facility] [place] [address] Patien t Name: TARYN BAHENA Access ion #: [id number] Sex: F : 1970 9 Locati on: RAD Attend ing Physic guerline: [facility] Physic guerline: GAVINO ROBLERO Exam Date: 022 [...] ques. FINDIN GS: Page 1 of 2 [facility] Patien t Name: TARYN BAHENA Access ion #: [id number] Sex: F : 1970 9 Exam Date: 022 9:05 AM Exam Name: [...] 10:50 AM (CT) Page 2 of 2 [id number] [facility] (Imaging) [address] [place], [address], 11/01/2022 15:18:24 03/25/20 22 03/25/2022 CT, abdom en + pelvi s, w/ contr ast [facility] [address] [facility] [place] [address] JOSHUAIN G REPORT Patien t Name: TARYN BAHENA ion #: [id number] Sex: F : [birth year] MRN: [id number] Locati on: O Dictat ed By: Bandar Aceves M.D. Attend ing Physic guerline: GAVINO ROBLERO Orderi Physic guerline: GAVINO ROBLERO Exam Date: 9:05 [...] t Name: TARYN BAHENA Access ion #: [id number] Page 1 of 3 FINDIN GS: [...] There is a bone island in the darklight inspector ior aspect of the left iliac bone [...] M.D. Name: TARYN BAHENA Access ion #: [id number] Page 2 of 3 Signed Date: 022 11:03 AM Dictat ed By: Bandar Aceves M.D. D: 11:03 AM T: 11:03 AM Report ID: [id number] Mildred davis Name: TARYN BAHENA Access ion #: [id number] Page 3 of 3 [id number] [facility] (Imaging) [address] [facility], [place], [address], 11/01/2022 15:18:24 04/13/20 22 04/12/2022 MAMMO , scree gadiel, digit al, bilat eral No observ ation record ed. MIGRATION. [facility] [address], [place], [address], 11/01/2022 15:18:24 04/25/20 22 04/25/2022 MAMMO , diagn ostic , bilat eral No observ ation record ed. MIGRATION. [facility] [address], [place], [address], 11/01/2022 15:18:24 07/20/20 23 07/19/2023 CT, abdom en + pelvi s, w/o contr ast No observ ation record ed. [address], [place], [address], 07/31/2023 13:00:07 09/06/19 24 09/06/2023 XR, kidne y + urete r + bladd er No observ ation record ed. [address], [place], [address], 09/07/2023 08:44:58 09/07/19 24 09/06/2023 XR, kidne y + urete r + bladd er No observ ation record ed. [address], [place], [address], 09/07/2023 14:50:58 Result Notes Documentation Provider Name and Address Organization Details Recorded Time Ct, Abdomen + Pelvis, W/ Contrast : [facility] [address] [place] [address] Patient Name: TARYN BAHENA Sex: F : 1970 Location: [facility] Attending Physician: ORLY ROBLERO Ordering Physician: ORLY ROBLERO Exam Date: 03/25/2022 9:05 AM Exam Name: CT ABDOMEN PELVIS W Admitting Diagnosis(es): RADIOLOGY REPORT - FINAL EXAM: CT ABDOMEN PELVIS W HISTORY: abd pain 51-year-old female with abdominal pain, UTI, right abdominal palpable abnormality possibly representing lipoma. COMPARISON: None available. TECHNIQUE: Helical CT images of the abdomen and pelvis were performed with 900 ml barium oral contrast and 100 mL Isovue 370 IV contrast. Sagittal and coronal reformatted images were obtained. This CT exam was performed using 1 or more of the following dose reduction techniques: Automated exposure control, adjustment of the mA and/or kv according to patient size, or the use of iterative reconstruction techniques. FINDINGS: Page 1 of 2 [facility] Patient Name: TARYN BAHENA Sex: F : 1970 Exam Date: 03/25/2022 9:05 AM Exam Name: CT ABDOMEN PELVIS W Admitting Diagnosis(es): CT abdomen: The lung bases are clear. The liver, spleen, gallbladder, pancreas, kidneys, and adrenal glands are unremarkable. No abdominal aortic aneurysm or dissection. There is a left upper quadrant splenule. There is a skin marker of the right anterior abdomen (image 26, series 201), with no masses, fluid collections, or other focal abnormalities visualized deep to the skin marker. CT pelvis: No abnormal bowel dilatation, free air, free fluid, or suspicious adenopathy. There is fecal retention in the colon. The appendix and urinary bladder are unremarkable. There is advanced degenerative disc disease L5-S1 with significant neural foraminal stenosis on the left at that level. 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 IMPRESSION: 1. Fecal retention in the colon suggestive of constipation. 2. Advanced degenerative disc disease L5-S1. If the patient complains of lower extremity radicular symptoms, consider follow-up noncontrast MRI of the lumbar spine for evaluation of the exiting nerve roots. 3. No evidence of bowel obstruction, acute appendicitis, or other acute process in the abdomen or pelvis. Created and electronically signed by: Roly Bartholomew MD Signed Date: 03/25/2022 10:50 AM (CT) Dictated by: Roly Bartholomew MD (CT) (CT) Page 2 of 2 Not Available [facility] 11/01/2022 15:18:24 Ct, Abdomen + Pelvis, W/ Contrast : [address] [address] IMAGING REPORT Patient Name: TARYN BAHENA Sex: F : 1970 Location: O Dictated By: Bandar Aceves M.D. Attending Physician: ORLY ROBLERO Ordering Physician: ORLY ROBLERO Exam Date: 03/25/2022 9:05 AM Exam Name: CT ABDOMEN PELVIS W Admitting Diagnosis(es):General abd pain. Denies Nausea,vomiting or diarrhea. Small lump rt side marked with BB-possible lipoma.No prev surg. Pt is being treated for UTI Duration: 1 month RADIOLOGY REPORT - FINAL EXAM DESCRIPTION: CT ABDOMEN PELVIS W REASON FOR STUDY: General abd pain. Denies Nausea,vomiting or diarrhea. Small lump rt side marked with BB-possible lipoma.No prev surg. Pt is being treated for UTI Duration: 1 month TECHNIQUE: CT scan of the abdomen and pelvis performed with intravenous and with oral contrast using helical scanning technique with dynamic intravenous contrast injection. Reconstructed coronal and sagittal MPR images reviewed. All images stored on PACS. Automated exposure control was used as a dose optimization technique for this examination. CONTRAST TYPE/DOSE: 100 of iSOVUE 370 900ml Readi - cat injected via RT AC 20g COMPARISON: None available Patient Name: TARYN BAHENA Page 1 of 3 FINDINGS: LOWER CHEST: No significant pulmonary abnormalities. No effusion. LIVER: Normal size. No identified cystic or solid masses. GALLBLADDER: Normal. BILE DUCTS: No intrahepatic or extrahepatic ductal dilatation. SPLEEN: Normal size. No focal lesions. PANCREAS: No identified cystic or solid masses. No significant calcifications. No adjacent inflammation or peripancreatic fluid collections. Pancreatic duct not dilated. ADRENALS: Normal. KIDNEYS/URINARY TRACT: No identified significant cystic or solid masses. No visualized stones. No hydronephrosis or hydroureter. Symmetric enhancement. Urinary bladder is unremarkable. GI: Normal appendix. PERITONEUM: No ascites or free air. RETROPERITONEUM: No mass or adenopathy. REPRODUCTIVE: No significant abnormality. VASCULATURE: No abdominal aortic aneurysm. MUSCULOSKELETAL: No significant abnormality. There is a bone island in the posterior aspect of the left iliac bone OTHER: No other abnormality. There is a BB marker over the right upper quadrant no lipoma or soft tissue mass is identified. IMPRESSION: 1.No acute abnormality in the abdomen or pelvis. 2.No abnormality identified in the location of the BB marker. Bandar Aceves M.D. Patient Name: TARYN BAHENA Page 2 of 3 Signed Date: 03/25/2022 11:03 AM Dictated By: Bandar Aceves M.D. Report ID: [id number] Patient Name: TARYN BAHENA Page 3 of 3 Not Available [facility] 11/01/2022 15:18:24 Problems Name Problem SNOMED Code Status Onset Date Resolution Date Notes Provider Name and Address Organization Details Recorded Time Abdominal bloating 035333932 Completed Not Available [facility] 3 15:15:48 Amenorrhea 71301372 Completed Not Available [facility] 3 15:15:49 Headache 97413747 Active Not Available [facility] 3 15:15:49 Cyst of ovary 19169468 Completed Not Available [facility] 3 15:15:50 Fatigue 32041971 Active Not Available [facility] 3 15:15:50 Porokerato sis 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 Active 2019 Not Available [facility] 3 15:15:49 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 Not Available [facility] 3 15:15:50 Dystrophia unguium 22472407 Active 2019 Not Available [facility] 3 15:15:50 Abdominal pain 49158503 Active 2021 Not Available [facility] 3 15:15:49 Painless rectal bleeding 678405157 Active 2021 Not Available [facility] 3 15:15:49 Acute urinary tract infection 050663592 Active 2021 Not Available [facility] 3 15:15:49 Lipoma of skin 774229493 Active 2021 Not Available [facility] 3 15:15:49 Anxiety 79310740 Active 2021 Not Available [facility] 3 15:15:49 Problem Notes None recorded. Procedures Surgical History Date Name Laterality Status Provider Name and Address Organization Details Recorded Time 12/02/19 15 dilation and curettage of uterus completed Not Available [facility] 11/01/2022 15:13:43 12/02/19 15 Hysteroscopy biopsy completed Not Available [facility] 11/01/2022 15:13:43 excision of lipoma completed MITRA Lemon [place] [employer] 04/02/2023 14:16:23 Imaging Results None recorded. Procedure Notes None recorded. Medical Equipment None [...] Heart rate Body temperature Body weight Systolic And Diastolic Provider Name and Address Organization Details Last Updated DateTime 3 28.3 kg/m2 172.72 cm 68 /min 98 [degF] 74086.1 8 g 118/78 mm[Hg] Not Available [facility] 3 15:15:23 Date Recorded Body mass index (BMI) Body height Heart rate Body temperature Body weight Systolic And Diastolic Provider Name and Address Organization Details Last Updated DateTime 2 28 kg/m2 172.72 cm 74 /min 97.5 [degF] 09894 g 120/80 mm[Hg] Not Available [facility] 3 15:15:23 Date Recorded Body height Body mass index (BMI) Body weight Body temperature Heart rate Systolic And Diastolic Provider Name and Address Organization Details Last Updated DateTime 3 172.72 cm 27.4 kg/m2 34049.6 3 g 98 [degF] 64 /min 120/82 mm[Hg] MITRA Lemon [place] [facility] 3 14:17:44 Date Recorded Body mass index (BMI) Body height Heart rate Body temperature Body weight Systolic And Diastolic Provider Name and Address Organization Details Last Updated DateTime 2 28 kg/m2 172.72 cm 64 /min 98.4 [degF] 66053 g 108/74 mm[Hg] Not Available [facility] 3 15:15:23 Date Recorded Body mass index (BMI) Body height Heart rate Body temperature Body weight Systolic And Diastolic Provider Name and Address Organization Details Last Updated DateTime 2 27.4 kg/m2 172.72 cm 77 /min 98.3 [degF] 25410.6 3 g 116/72 mm[Hg] Not Available [facility] 3 15:15:23 Social History Question Answer Notes LastModified by Organizat ion Details LastModified Time Tobacco Smoking Status Never Smoker Not Available [facility] 11/01/2022 15:13:38 Do You Have An Advance Directive? No [id number] Information not available 11/01/2022 Do You Wear A Helmet When Biking? No [id number] Information not available 11/01/2022 What Is Your Level Of Caffeine Consumption? Heavy [id number].[id number] Information not available 11/01/2022 In The 14 Days Before Symptom Onset, Have You Had Close Contact With A Laboratory-confir med COVID-19 While That Case Was Ill? No [id number] Information not available 11/01/2022 In The 14 Days Before Symptom Onset, Have You Had Close Contact With A Person Who Is Under Investigation For COVID-19 While That Person Was Ill? No [id number] Information not available 11/01/2022 What Type Of Diet Are You Following? REGULAR [id number] Information not available 11/01/2022 What Is The Highest Grade Or Level Of School You Have Completed Or The Highest Degree You Have Received? [id number] [id number].[id number] 9905 Information not available 11/01/2022 Have There Been Any Changes To Your Family Or Social Situation? No [id number] [id number] Information not available 11/01/2022 What Is The Fluoride Status Of Your Home? Unknown [id number].[id number] Information not available 11/01/2022 Are There Any Guns Present In Your Home? No MIGRATION.[id number] 8834 Information not available 11/01/2022 Do You Use Insect Repellent Routinely? No [id number].[id number] 5702 Information not available 11/01/2022 Where Do You Live? [place] MIGRATION.[id number] 9667 Information not available 11/01/2022 Do You Have A Medical Power Of Pinion Polisher? No MIGRATION.[id number] 5055 Information not available 11/01/2022 What Was The Date Of Your Most Recent Tobacco Screening? 04/02/2023 [email or web address] Information not available 04/02/2023 Have You Ever Been Counseled For Unhealthy Alcohol Use? No MIGRATION.016083 7012 Information not available 11/01/2022 Do You Have Any Pets? Yes [id number].[id number] Information not available 11/01/2022 What Is Your Relationship Status? [id number].[id number] 1704 Information not available 11/01/2022 Do You Use Your Seat Belt Or Car Seat Routinely? Yes [id number] 3100 Information not available 11/01/2022 Do You Have Smoke And Carbon Monoxide Detectors In Your Home? Yes [id number].[id number] 1341 Information not available 11/01/2022 Are You Passively Exposed To Smoke? No [id number].272290 1569 Information not available 11/01/2022 Are There Any Smokers In Your House? No [id number].331532 4561 Information not available 11/01/2022 Do You Use Sunscreen Routinely? Yes MIGRATION.577886 9469 Information not available 11/01/2022 Have You Recently Traveled Abroad? No MIGRATION.421250 8324 Information not available 11/01/2022 Do You Have Any Dietary Restrictions? No MIGRATION.099108 9679 Information not available 11/01/2022 Sex: Female Functional Status Question Answer Note LastModified by Organizat ion Details LastModified Time Do you use any illicit or recreational drugs? No [id number].[id number] 8866 Information not available 11/01/2022 Do you or have you ever used any other forms of tobacco or nicotine? No [id number] Information not available 11/01/2022 What is your level of alcohol consumption? 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 Moderate [id number] Information not available 11/01/2022 Mental Status Question Answer Note LastModified by Organizat ion Details LastModified Time Do you feel stressed (tense, restless, nervous, or anxious, or unable to sleep at night)? [id number] stressed/a nxious but still able to sleep [id number] Information not available 11/01/2022 Family History Relationship Description Onset Age of this Age Resolved Age Notes LastModified by Organization Details LastModified Time Mother Hypertensive disorder [id number] Not available 11/01/2022 15:13:44 Mother Malignant neoplasm of breast 72 [id number] Not available 11/01/2022 15:13:44 Mother Malignant melanoma [id number] Not available 11/01/2022 15:13:44 Father General health good [id number] Not available 11/01/2022 15:13:44 Medical History Condition Response NERVE DISEASE N BLINDNESS N RHEUMATIC FEVER N KIDNEY STONES N BLADDER PROBLEMS N MRSA N OTHER # 1 N POLIO N LUNG DISEASE/DISORDER N HISTORY OF DRUG ABUSE N COPD N RADIATION / CHEMOTHERAPY N Other # 2 N BLOOD DISEASES N EAR OR HEARING PROBLEMS N MUMPS N SHINGLES N BOWEL PROBLEMS N DEPRESSION (INCLUDING POST ) N STROKE/TIA N ULCERS N BENIGN PROSTATIC HYPERPLASIA N MEASLES N HYPOTENSION N MYOCARDIAL INFARCTION N OBESITY N GERD/NAUSEA N ANEURYSM N URINARY/BLADDER/KIDNEY PROBLEMS N CORONARY ARTERY DISEASE (CAD) N ADDICTION CONCERNS N ENDOMETRIOSIS N Impotence N USE OF BLOOD THINNERS N SKIN [...] GLAUCOMA N FOOT PROBLEM N DIVERTICULITIS N CHICKENPOX N SLEEP APNEA N INFECTIOUS DISEASE N HEART ARRHYTHMIA N PROSTATE N INSOMNIA N HIGH CHOLESTEROL / HYPERLIPIDEMIA N HYPERTHYROIDISM N EYE PROBLEMS N EDEMA N CHRONIC PAIN SYNDROME N HYPOTHYROIDISM N CAROTID BLOCKAGE N CONSTIPATION N BACK / NECK PROBLEMS N HAVE YOU BEEN HOSPITALIZED OR SEEN IN [facility] IN THE PAST YEAR ? N ATHEROSCLEROSIS N BREAST PROBLEMS N DIALYSIS N ECZEMA N OSTEOPOROSIS N ARTHRITIS N APPENDICITIS N DIABETES, TYPE N BAD TEETH N ENT N HEARTBURN / REFLUX N AUTISM SPECTRUM DISORDER (ASD) N HEPATITIS / LIVER DISEASE N GOUT N SLEEP DISORDER N ALZHEIMER'S DISEASE N Brain Problems N HERPES N DEMENTIA N HEADACHES/MIGRAINES Y SEIZURES/EPILEPSY N VASCULAR DISEASE N PACEMAKER N Blood Disorder N DIZZINESS N HEART DISEASE/HEART PROBLEMS N KIDNEY DISEASE N MULTIPLE SCLEROSIS N CARDIAC ARRHYTHMIA N CANCER: SPECIFY N ATRIAL FIBRILLATION N Gall Stones N PULMONARY EMBOLISM N AUTOIMMUNE DISEASE N Gynecological HistoryNo gynecological history recorded. Obstetrics History GPAL:G 0 P 0 0 0 0 Immunizations Vaccine Type Date Status Note Provider Nam e and Address Organization Details Recorded Time COVID-19, mRNA, LNP-S, PF, 100 mcg/0.5mL dose or 50 mcg/0.25mL dose 08/29/2021 completed Not Available Formerly [facility] 3 15:18:19 COVID-19, mRNA, LNP-S, PF, 100 mcg/0.5mL dose or 50 mcg/0.25mL dose 10/22/2020 completed Not Available [facility] 3 15:18:19 COVID-19, mRNA, LNP-S, PF, 100 mcg/0.5mL dose or 50 mcg/0.25mL dose 09/23/2020 completed Not Available [facility] 3 15:18:19 Past Encounters Encounter ID Performer Location Encounter Start Date Encounter Closed Date Diagnosis/Indication Diagnosis SNOMED-CT Code Diagnosis ICD10 Code Diagnosis IMO Codes Diagnosis Note [id number] Orly Roblero MD [facility] Internal Med Jordon castellanos [address] [place] [address] [place] [address] 03/02/2022 00:00:00 03/12/2022 12:18:06 [id number] Orly Roblero MD [facility] Internal [facility] [address] [place] [address] [place] [address] 04/06/2022 00:00:00 04/30/2022 16:36:46 [id number] Orly Roblero MD [facility] Internal Med [facility] [address] [place] , [address] [address] 07/31/2022 00:00:00 09/17/2022 17:27:07 [id number] Orly Roblero MD [facility] Internal Med [facility] [address] [place] , [address] [address] 04/02/2023 13:39:17 04/02/2023 15:43:57 Fatigue 76045401 R53.83 Screening for cardiovascular system disease 162048585 Z13.6 Health Concerns Section Related Observation LastModified by Organization Detai ls LastModified Time None Recorded Concern Status LastModified by Organization Details LastModified Time None Recorded Advance Directives Directive N: Payers Insurance Date Sequence Insurance Name Policy Number Policy Pino Covered Member ID Pino Member ID Guarantor Name 08/26/2023 1 [facility] [id number] Taryn Justice Josef [id number] Taryn Vinh Josef 08/26/2023 2 [employer] - OPEN ACCESS Arsh Justice Bahena [id number] I Taryn Bahena 05/21/2023 [facility] Taryn Bahena SELF SELF Taryn Bahena Notes Date Note Type Note Provider Name and Address Organization Details Recorded Time 04/02/2023 text/html anxiety stable fatigue start to creep in Orly Roblero MD [address] [address], [place], [address], [facility] 04/02/2023 22:09:38 OBGyn Episode No OBEpisode recorded.
--- NOTE | 2025-07-13 07:17 | WPDHPUPDATE1 ---
History and Physical Update Update Date/Time: 07/13/25 07:17 History and Physical has been reviewed, including an updated exam of the patient. There are NO changes in the patient's condition. Risks, benefits, and alternatives have been discussed and questions answered. Patient agrees to proceed with hysteroscopy with D&C.
--- NOTE | 2025-07-13 12:04 | WPDANESEPPF ---
Anes - Initial Pre Proc Eval Procedure: Operation Date: 07/13/25 13:00 Proposed Procedures p Hysteroscopy Dilation and Curettage - Franca Lovelace MD Date/Time: 07/13/25 12:04 Surgeon: Franca Lovelace MD Pre Op Diagnosis: Post Menopausal Bleeding Patient Data Age: 54 Gender: F Height: 1.7 m Weight: 86.8 kg Allergies Allergy/AdvReac Type Severity Reaction Status Date / Time No Known Allergies Allergy Unknown Verified 07/07/25 12:29 Home Medications ?Medication ?Instructions ?Recorded ?Confirmed ?Type multivitamin,wb-xgsx-qoxbrmlm 1 tablet PO DAILY 09/23/20 07/07/25 History (Complete Multivitamin tablet) magnesium 250 mg tablet 250 mg PO DAILY PRN headaches 09/13/22 07/07/25 History cetirizine 10 mg tablet (24Hour 10 mg PO DAILY 02/20/25 07/07/25 History Allergy) estradiol 0.0375 mg/24 hr 1 patch transdermal 2XW #24 ea 05/21/25 07/07/25 Rx semiweekly transdermal patch (Sharlene) spironolactone 100 mg tablet 100 mg PO DAILY 06/25/25 07/07/25 History progesterone micronized 100 mg 200 mg (2 x 100 mg) PO QHS #90 caps 07/01/25 07/07/25 Rx capsule apple cider vinegar 250 mg 500 mg PO DAILY 07/07/25 07/07/25 History chewable tablet glucosamine-chondroitin 167 mg-133 2 cap PO DAILY 07/07/25 07/07/25 History mg capsule acetaminophen 500 mg tablet 1,000 mg (2 x 500 mg) PO TID #60 07/13/25 Rx tabs ibuprofen 800 mg tablet 800 mg PO TID #30 tabs 07/13/25 Rx Patient hx anesthesia problems: none Family hx anesthesia problems: none Results Review: All pre-operative results and documents have been reviewed as part of the pre-operative evaluation. [facility] Past Medical History Medical History Colon cancer screening Bloating IBS (irritable bowel syndrome) Slow transit constipation Asthma NENO (stress urinary incontinence, female) Surgical History Surgical History History of excision of mass 09/22/2022 - excision subcutaneous lipoma of the right upper quadrant of abdomen History of bladder surgery sling History of hysteroscopy S/P dilation and curettage Amenorrhea; benign pathology Family History Family History Father Hypertension Other Breast cancer Social History Social History Smoking status: Former smoker Tobacco type: cigarettes Additional smoking assessment comments: social smoking at 21y/o Alcohol intake: current Drinks per week: 1 Substance use: never Substance use type: does not use Do You Feel Safe in your Home?: Yes Lack of Transportation: No Lack of Food: Never True Current Housing: I Have Housing Concerned About Future Housing: No Difficulty Paying Gas/Electric Bills: No Difficulty Paying for Meds: No Currently Unemployed: No Education: Master's Degree or Higher Difficulty w/ Childcare or Family Care: No Living arrangements: with family Additional living arrangements comments: 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/Education: 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 Gender identity (if verbalized by the patient): Female Sexual Orientation (if Verbalized by the Patient): Straight or Heterosexual Spiritual care concerns: No Anes - Eval Final PreProcedure Day of Procedure 07/13/25 12:04 Patient weight: obese Heart: regular rate and rhythm Lungs: clear to auscultation Airway: Mallampati scale class II Neurological: alert and oriented Last oral intake: >/= 8 hours ASA classification: II Emergent: no Anesthetic plan: proceed Anesthesia type and monitoring: general GIVS and standard monitoring Results Review: All pre-operative results and documents have been reviewed as part of the pre-operative evaluation. Informed Consent: The patient's anesthetic plan and its attendant risks and benefits were discussed with the patient/family/POA. Questions were solicited and answers provided to the satisfaction of the patient/family/POA.
[2025-07-13 12:05] VITALS: BP 120/84; PULSE 92; RESP 16; TEMP 36.8; O2SAT 100
[2025-07-13] MEDS: ACETAMINOPHEN 500 MG TABLET 1000 MG PO (12:05)
[2025-07-13] MEDS: LACTATED RINGERS 1,000 ML 30 ML IV CONT (12:05)
--- NOTE | 2025-07-13 13:32 | S_PTH ---
PATIENT: Taryn Bahena LOC: [facility] U#:[id number] AGE/SX: 54/F ROOM: RE07/13/[address]: Franca Lovelace MD : 1970 BED: DIS: 07/13/2025 SPEC #: [id number] RECD: 07/13/25 14:08 STATUS: JOLLY REQ #: [id number] EDUARDO: 07/13/25 13:[address]: Franca Lovelace DEPT: [facility] Surgical RECD BY: Jenna Raygoza ENTERED: 07/13/25 14:09 SP TYPE: Surgical OTHR DR: Ab Roblero, Tissues: A - Endometrial Curettings Procedures: Hematoxylin and Eosin Stain Gross and Microscopic Level 4
--- NOTE | 2025-07-13 13:43 | W.PM.PROC2 ---
Procedure Note - Detailed Date of Procedure 07/13/25 Pre-op Diagnosis Post Menopausal Bleeding Post-op Diagnosis Same Procedure Performed Hysteroscopy with D&C Surgeon Franca Lovelace MD Anesthesia MAC Findings Uterus sounded to 8cm; normal appearing cervix. Endometrium appeared normal; bilateral tubal ostia visualized. Good hemostasis at end of case. Fluid deficit: 30cc Description of Procedure Taryn was taken to the operating room where she was placed under sedation without complications. She was then prepped and draped in the usual sterile fashion in the dorsal lithotomy position with her legs in low Tod stirrups. A time-out was performed and no perioperative antibiotics were indicated. A bivalve speculum was placed within the vagina where the cervix was easily identified. The anterior lip of the cervix was grasped with a single-tooth tenaculum. The uterus was sounded. The cervix was then serially dilated to allow for the hysteroscope. The hysteroscope was advanced into the uterine cavity with the above findings noted. A curettage was then performed until a good uterine cry was felt throughout the uterus. The hysteroscope was advanced back into the uterine cavity and the cavity appeared normal. Good hemostasis was noted. All instruments were removed from the vagina. Sponge, lap, instrument, and needle counts were correct at the end of the procedure. Patient was awoken from anesthesia and taken to recovery with plans of same-day discharge home. Estimated Blood Loss 5 IV Fluids 500 Pathology Yes (endometrial curetting's) Complications No immediate complications Condition Stable Disposition Same day [facility] Billing Surgery - Charge Forward: Surgery Billing
[2025-07-13 13:44] VITALS: BP 94/52; PULSE 51; RESP 18; O2SAT 99
[2025-07-13 14:10] VITALS: BP 105/63; PULSE 56; RESP 18
[2025-07-13 14:40] VITALS: BP 113/65; PULSE 57; RESP 18
--- NOTE | 2025-07-13 15:14 | SUR.PHASEII ---
PATIENT ASKED TO ASK DR BARRETO RE: SEVERE VAGINAL ITCHINESS; DR BARRETO TO SEND IN A SCRIPT.
== END 2025-07-13 15:10 | disposition home or self-care (01) ==
PROVIDERS: PCP Internal Medicine; Visit Provider Obstetrics & Gynecology
PROC: 0U5B8ZZ Destruction of Endometrium, Via Natural or Artificial Opening Endoscopic (ICD-10-PCS; CPT 58563; principal; 2025-07-13 13:00)
DX: N95.0 Postmenopausal bleeding (principal); K58.9 Irritable bowel syndrome, unspecified; J45.909 Unspecified asthma, uncomplicated; R00.2 Palpitations; F39 Unspecified mood [affective] disorder; K59.01 Slow transit constipation; E66.9 Obesity, unspecified; Z68.30 Body mass index [BMI] 30.0-30.9, adult; Z79.890 Hormone replacement therapy; Z79.1 Long term (current) use of non-steroidal anti-inflammatories (NSAID); Z98.890 Other specified postprocedural states; Z80.3 Family history of malignant neoplasm of breast
CPT/HCPCS: 58558; 88305; A9270; J2003; J2250; J2704; J3010; J7120